=== PATIENT | male | born 1950 | race Hispanic/Latino ===

== ENCOUNTER 2018-06-11 14:19 | Observation (INO) | payer MEDICARE ==
[2018-06-11] MEDS ORDERED: Acetaminophen 325 MG TAB PO PRN (18:21)
[2018-06-11] MEDS ORDERED: Dextrose 50% Abboject 50 ML SYRINGE SLOW IVP PRN (18:25)
[2018-06-11] MEDS ORDERED: Dextrose 5% in Water 1,000 ML IV PRN (18:25)
[2018-06-11 20:28] VITALS: BMI 30.7
[2018-06-11] MEDS: Sodium Chloride 0.9% 1,000 ML IV SCH (20:29)
[2018-06-11] MEDS: HumaLOG 300 UNITS/3 ML VIAL SC PRN (20:58)
--- NOTE | 2018-06-11 22:06 | HP ---
CHIEF COMPLAINT: Altered mental status. HISTORY OF PRESENT ILLNESS: The patient is a 67-year-old male with a history of known hypothyroidism and diabetes, who presented to outpatient Emergency Department today complaining of feeling altered. The patient initially presented to [facility] with reports of confusion. He reports that over the st month, he has been feeling weak and tired and generally out of it with just sluggish feeling. He has been more pronounced over the last couple of weeks. He has actually been stumbling when even att empting to walk and just feels like he does not have as much control over his body in general. He rondon s felt no specific associations with any other factors. REVIEW OF SYSTEMS: Notable for some slight blurred vision, nonrestorative sleep and has had some fat igue, has some nocturia and even had some incontinence today because he felt too fatigued to actually move quickly enough to get to the bathroom. He does have some polydipsia. He states he drinks abou t a gallon of liquids per day. Other than that, a 10-system review is negative except for the histor y of present illness. PAST MEDICAL HISTORY: Diabetes, hypertension, hypothyroidism, has a history of what he called Graves disease and then said he had a subsequent radioactive iodine ablation resulting in permanent hypothy roidism. He also reports that his Synthroid dose has been up as high as 200 mg but was tapered back down and is now only on 25 mcg. PAST SURGICAL HISTORY: Pin in his left second digit from a degloving injury. FAMILY HISTORY: Father is alive with Alzheimer's and COPD. His mother and 2 sisters apparently have autoimmune cirrhosis. His mother has heart failure. She is . SOCIAL HISTORY: Patient has a history of smoking in college, not currently. Minimal alcohol intake about 1 beer per month. 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 Drugs: The patient reports he occasionally uses marijuana. None recent. He is not . He was initially , got remarried and his second of cancer in the 80s. Patient is a DNR and his surrogate decision maker is his nephew Roni. ALLERGIES: METFORMIN, which causes nausea and vomiting. MEDICATIONS: Levothyroxine 25 mcg every day, and an insulin FlexPen. PHYSICAL EXAMINATION: VITAL SIGNS: BP was 136/77, pulse 71, respirations 14, O2 sat 97%. GENERAL APPEARANCE: The patient was awake and interactive. He has some mild psychomotor delay. He appears to be appropriate. HEENT: Pupils are sluggish but reactive. He has mild erythema of the eyelids. He has no OP lesions . NECK: Supple and symmetric. CARDIOVASCULAR: Regular rate and rhythm without murmurs, gallops or rubs. LUNGS: Clear to auscultation bilaterally. ABDOMEN: Soft, nontender, nondistended, positive bowel sounds. EXTREMITIES: Warm and dry with no edema. PSYCHIATRIC: Other than the psychomotor delay, patient has normal affect and behavior. LABORATORY DATA: White count 7.3, hemoglobin 16.3 and platelets 105. VBG, pH was 7.36, pCO2 is 36. Sodium 138, potassium 3.8, chloride 104, CO2 is 17, anion gap 21, BUN 17, creatinine 1.59, glucose 3 39 with repeat 236, AST 53, ALT 57. CK is 1158, MB is 15.5, troponin less than 0.01. BNP less than 10. Albumin 40. TSH was 125.1. Urinalysis with significant glucose, some ketones, trace blood. Ur ine drug screen was negative. Blood alcohol less than 10. Chest x-ray normal. Head CT was also rep ortedly normal. IMPRESSION AND PLAN: 1. Altered mental status. Does not appear to be a significant underlying cause for this other than profound hypothyroidism. Patient did receive 400 mcg of Synthroid IV and 200 mg p.o. at the outside facility. He states subjectively he thinks he is already feeling a bit better. The patient is place d in observation. We will continue him on p.o. Synthroid. 2. Mild rhabdomyolysis. Unclear if this is related to the hypothyroidism. We will hydrate and rech ramy values in the morning. 3. Thrombocytopenia. This appears to be longstanding. He is not too far off of his baseline. 4. Diabetes mellitus. We will keep the patient on a diabetic diet and continue with sliding scale i nsulin. The patient is not sure he actually took a shot over the last couple of days and he was sign ificantly hyperglycemic on arrival. We will continue to monitor that situation as well. 5. History of hypertension, does not appear that the patient is on medications for the time being. We will continue to monitor his vital signs.
[2018-06-12] MEDS: Sodium Chloride 0.9% 1,000 ML IV SCH ×2 (05:04→17:30)
[2018-06-12 05:31] LABS: Anion Gap 15 mmol/L (10-20); BUN (Urea Nitrogen) 15 mg/dL (8.4-25.7); Calc. Creatinine Clearance 71 mL/min (70-130); Carbon Dioxide 16 mmol/L (23-31); Chloride 109 mmol/L (98-107); Estimated GFR-MDRD 57; Glucose 278 mg/dL (80-115); Potassium 3.5 mmol/L (3.5-5.1); Sodium 136 mmol/L (136-145)
[2018-06-12] MEDS ORDERED: Levothyroxine Sodium 100 MCG TAB PO SCH (06:00)
[2018-06-12 06:14] LABS: #Eosinphils 0.1 thou/uL (0.0-0.7); #Lymphocytes 1.9 thou/uL (1.20-3.40); #Monocytes 0.3 thou/uL (0.11-0.59); #Neutrophils 3.9 thou/uL (1.40-6.50); %Basophils 0.7 % (0.0-1.0); %Eosinophils 0.9 % (0.0-10.0); %Lymphocytes 30.2 % (21.0-51.0); %Monocytes 4.9 % (0.0-10.0); %Neutrophils 63.4 % (42.0-75.0); Hemoglobin 14.1 g/dL (14.0-18.0); Mean Corpuscular Hemoglobin 33.5 pg (27.0-31.0); Mean Platelet Volume 7.6 fL (7.4-10.4); PLT Morphology Comment Appears Decreased; Platelet Count 88 thou/uL (130-400); RBC Distribution Width 14.1 % (11.5-14.5); Red Blood Cell (RBC) Count 4.21 mill/uL (4.70-6.10); White Blood Cell (WBC) Count 6.2 thou/uL (4.8-10.8)
[2018-06-12] MEDS: HumaLOG 300 UNITS/3 ML VIAL SC PRN ×2 (06:20→12:39)
[2018-06-12 17:23] VITALS: BP 116/73; TEMP 98.4
--- NOTE | 2018-06-12 22:04 | DIS ---
DATE OF ADMISSION: 06/11/2018 DATE OF DISCHARGE: 06/12/2018 DISCHARGE DIAGNOSES: 1. Altered mental status. 2. Severe hypothyroidism. 3. Diabetes. 4. Mild rhabdomyolysis. 5. Mild chronic thrombocytopenia SUBJECTIVE: The patient is a 67-year-old male who presented to an outside facility with some confusion. There was initial concern the patient may have some form of intoxication, but screens were normal. He was subsequently found to have a TSH of 127. He was given 400 mcg of IV Synthroid and 200 mcg p.o. He was subsequently transferred to our facility and placed in observation. Patient indicated that he has had prior thyroid ablation. He also stated that his thyroid medication had been increased as high as 200 mcg and reduced back down to 25 mcg. He indicated that he took his medication regularly, but did not follow any protocol and simply took that and went about his day, often eating at the same time. HOSPITAL COURSE: The patient appeared to be somewhat delayed in his speech, but otherwise had no physical significant stigmata of hypothyroidism. His CK was noted at about 1100. He was placed in the hospital and hydrated overnight. The patient was already improving from the time he initially presented. By the following morning, the patient fell back to his baseline. He was able to eat and get up and ambulate without any difficulty. His repeat CK was around 900. He was felt to be stable for discharge to home with continued oral hydration. PHYSICAL EXAMINATION: VITAL SIGNS: On the day of discharge, temperature was 98.4, pulse 73, respirations 18, O2 sat 97%, blood pressure 116/73. GENERAL: Awake, alert, appropriate, in no distress, walking in [place] as well. HEART: Regular rate and rhythm. LUNGS: Clear. ABDOMEN: Benign. EXTREMITIES: Warm and dry with no edema. DISPOSITION: The patient will be discharged to home. DISCHARGE MEDICATIONS: We will continue with his usual insulin dosing. He should be on Synthroid 200 mcg p.o. daily. Of note, the patient was instructed to take the Synthroid at the same time each morning, on an empty stomach and to wait at least 30 minutes prior to eating or drinking anything or taking any other meds by mouth. He will continue with his diabetic diet. He is encouraged to drink ample fluids. His activity level is as tolerated. He is encouraged to follow up with his PCP soon and was instructed that he will need to have his TSH checked again in about 6 weeks. TOMASD
== END 2018-06-12 18:36 | disposition home or self-care (01) ==
LOC: ERS 14:19 → T4-A 17:07
PROVIDERS: ADMIT Internal Medicine; ATTEND Internal Medicine
DX: R41.82 Altered mental status, unspecified (principal); E89.0 Postprocedural hypothyroidism; E11.9 Type 2 diabetes mellitus without complications; M62.82 Rhabdomyolysis; D69.6 Thrombocytopenia, unspecified; I10 Essential (primary) hypertension; Z87.891 Personal history of nicotine dependence; Z88.8 Allergy status to other drugs, medicaments and biological substances
CPT/HCPCS: 80048; 82550; 82962 ×2; 85025; 96360; 96361; 99285; G0378 ×2; 36415; 36416

== ENCOUNTER 2020-11-26 10:27 | Inpatient (IN) | payer MEDICARE ==
[2020-11-26] MEDS ORDERED: Hydrocortisone Sod Succ/PF 100 mg/2 ml Vial ONE (10:55)
[2020-11-26] MEDS ORDERED: Propofol 1,000 MG/100 ML VIAL IV ONE (10:59)
[2020-11-26 11:10] LABS: Actual Bicarbonate (HCO3a) 17.9 mEq/L (22-28); Analyzer IN Cardio ER; Base Excess (BEa) -5.2 mEq/L (-2.0 to +3.0); CO2 Tension 27.8 mmHg (35.0-45.0); Calcium, Ionized (arterial) 1.07 mmol/L (1.12-1.30); Carboxyhemoglobin (COHb) 0.3 gm% (0.0-3.0); Hemoglobin (Hb) 12.4 g/dL (14.0-18.0); O2 Tension (PaO2), arterial 127.2 mmHg (> 70.0); Potassium - ABG Lab 3.42 mmol/L (3.70-5.30); pH, Arterial 7.43 (7.35-7.45)
[2020-11-26 11:12] LABS: Puncture Site RRA
[2020-11-26] MEDS ORDERED: fentaNYL Citrate/PF 2,000 MCG in Sodium Chloride 0.9% 60 ML IV SCH (11:15)
[2020-11-26] MEDS ORDERED: Levothyroxine 100 MCG SDV SLOW IVP SCH (11:15)
[2020-11-26 11:58] LABS: Amphetamine Not Detected (NotDetected); Barbiturates Screen Not Detected (NotDetected); Benzodiazepine Screen Not Detected (NotDetected); Cocaine Metabolite Screen Not Detected (NotDetected); Medtox Control Line Valid? VALID (VALID); Medtox Reader # READER 1; Methadone Not Detected (NotDetected); Methamphetamine Not Detected (NotDetected); Opiate Screen Not Detected (NotDetected); Oxycodone Screen Not Detected (NotDetected); Phencyclidine (PCP) Not Detected (NotDetected); THC/Cannabinoid Screen Not Detected (NotDetected); Tricyclic Screen Not Detected (NotDetected)
[2020-11-26 12:26] LABS: SARS-CoV-2 NAA Rapid Test Not Detected (NotDetected)
[2020-11-26] MEDS ORDERED: Sodium Chloride 0.9% 1,000 ML IV SCH (13:45)
[2020-11-26 13:46] VITALS: BMI 31.7
[2020-11-26] MEDS ORDERED: Electrolyte Replacement Protocol 1 EACH FS SCH (14:53)
[2020-11-26] MEDS ORDERED: Propofol BOLUS 1,000 MG/100 ML VIAL IV PRN (15:00)
[2020-11-26] MEDS ORDERED: Ventilator Sedation Protocol 1 EACH FS SCH (15:00)
[2020-11-26] MEDS ORDERED: Morphine 2 MG/ML VIAL SLOW IVP PRN (15:00)
[2020-11-26] MEDS ORDERED: Lorazepam 2 MG/ML VIAL SLOW IVP PRN (15:00)
[2020-11-26] MEDS ORDERED: Fentanyl BOLUS 250 ML IVPB PRN (15:00)
[2020-11-26] MEDS ORDERED: Fentanyl CADD 100 ML IV SCH (15:00)
--- NOTE | 2020-11-26 15:54 | PDOC.HHP ---
Hospitalist HPI encephalopathy History of Present Illness: This is a 70 year old male with past medical history of hypothyroidism, diabetes who presented to the hospital when he was found unresponsive on the floor outside. He had a GCS of 3. He was intubated in the field. It is unclear if he was compliant with his medications. I am unable to get a hold of the family. He was recently admitted in 2018 for severe altered mental status secondary to hypothyroidism and was discharged with synthyroid 200 mcg daily ED Course: The patient presented to the ER with a temp of 95.2 and was intubated in the field. CBC was unremarkable except for hemoglobin of 13.2. Labs showed a glucose of 360, lactic acid of 3.1, AST 58, ALT 69, ALP 116, ammonia of 202, CK Of 711 . UA was normal. CT head showed no acute findings. Chest X ray was clear. CT cervical spine showed degenerative changes . She got 300 mg IV levothyroxine, 100 mg IV hydrocortisone and received a eddie hugger and will be admitted for further workup. Allergies/Adverse Reactions: Allergy/AdvReac Type Severity Reaction Status Date / Time metformin Allergy Nausea Verified 11/26/20 11:55 Home Medications: Medication Instructions Recorded Confirmed Type Levothyroxine Sodium [Synthroid] 200 mcg PO DAILY #30 tablet 06/12/18 11/26/20 Rx Past History: PMHx: hypothyroidism diabetes PSHx: unable to obtain FHx: unable to obtain Social: unable to obtain Hospitalist HPI ROS ROS unobtainable: due to endotracheal tube Hospitalist Exam Vitals: Vital Signs (12 hours) Temp Pulse Resp BP Pulse Ox 11/26/20 15:24 68 11/26/20 14:00 16 11/26/20 13:50 19 100 11/26/20 13:23 97.6 F 67 15 126/74 100 Weight Weight 196 lb 10.437 oz Most Recent Monitor Data Heart Rate from ECG 63 NIBP 110/68 NIBP BP-Mean 82 Respiration from ECG 16 SpO2 100 General - other findings: intubated, sedated Eye: PERRL, anicteric sclera ENT: normocephalic atraumatic, no oropharyngeal lesions Neck: no JVD Heart: RRR, no murmur, no gallops, no rubs Respiratory: CTAB, no wheezes, no rales, no ronchi Gastrointestinal: soft, non-tender, non-distended, normal bowel sounds Extremities: no cyanosis, no clubbing, no edema Skin: normal turgor, no lesions, no rashes Neurological: cranial nerve grossly intact, normal sensation to touch, no weakne ss Musculoskeletal: normal tone, normal strength, no muscle wasting Psychiatric - other findings: intubated Hospitalist Results Lab results: Laboratory Last Values Specimen Type ARTERIAL 11/26/20 11:10 Puncture Site RRA 11/26/20 11:10 Bicarbonate Actual 17.9 mEq/L (22-28) L 11/26/20 11:10 ABG pH 7.43 (7.35-7.45) 11/26/20 11:10 ABG pCO2 27.8 mmHg (35.0-45.0) L 11/26/20 11:10 ABG pO2 127.2 mmHg (> 70.0) H 11/26/20 11:10 ABG O2 Sat (Measured) 97.6 % (94.0-98.0) 11/26/20 11:10 ABG O2 Content 17.1 vol% (18.0-21.0) L 11/26/20 11:10 ABG Base Excess -5.2 mEq/L (-2.0 to +3.0) L 11/26/20 11:10 ABG Hematocrit 36.0 % (42.0-52.0) L 11/26/20 11:10 ABG Hemoglobin 12.4 g/dL (14.0-18.0) L 11/26/20 11:10 ABG Oxyhemoglobin 96.8 % (94.0-98.0) 11/26/20 11:10 ABG Carboxyhemoglobin 0.3 gm% (0.0-3.0) 11/26/20 11:10 ABG Methemoglobin 0.50 gm% (0.04-1.52) 11/26/20 11:10 ABG Deoxyhemoglobin 2.4 % (0.0-2.9) 11/26/20 11:10 James Test POSITIVE 11/26/20 11:10 A-a O2 Gradient 123.250 mmHg (0-20) H 11/26/20 11:10 Sodium 137 mmol/L (135-148) 11/26/20 11:10 Potassium 3.42 mmol/L (3.70-5.30) L 11/26/20 11:10 Chloride 112 mmol/L (98-106) H 11/26/20 11:10 Ionized Calcium 1.07 mmol/L (1.12-1.30) L 11/26/20 11:10 Mode of Support SIMV 11/26/20 11:10 Mechanical Rate 12 min 11/26/20 11:10 Inspired O2 40 % 11/26/20 11:10 Tidal Volume 450 ml 11/26/20 11:10 Pressure Support 10 cmH2O 11/26/20 11:10 PEEP or CPAP 5.0 cmH2O 11/26/20 11:10 Free T4 Less than 0.40 ng/dL (0.70-1.48) L 11/26/20 11:31 Cortisol 157.40 ug/dL (See Ranges) 11/26/20 11:31 Urine Opiates Screen Not Detected (NotDetected) 11/26/20 11:20 Ur Oxycodone Screen Not Detected (NotDetected) 11/26/20 11:20 Urine Methadone Screen Not Detected (NotDetected) 11/26/20 11:20 Ur Propoxyphene Screen Not Detected (NotDetected) 11/26/20 11:20 Ur Barbiturates Screen Not Detected (NotDetected) 11/26/20 11:20 Ur Tricyclics Screen Not Detected (NotDetected) 11/26/20 11:20 Ur Phencyclidine Scrn Not Detected (NotDetected) 11/26/20 11:20 Ur Amphetamines Screen Not Detected (NotDetected) 11/26/20 11:20 U Methamphetamines Scrn Not Detected (NotDetected) 11/26/20 11:20 U Benzodiazepines Scrn Not Detected (NotDetected) 11/26/20 11:20 U Cocaine Metab Screen Not Detected (NotDetected) 11/26/20 11:20 U Cannabinoids Screen Not Detected (NotDetected) 11/26/20 11:20 Drug Screen Comment () 11/26/20 11:20 Influenza A RNA INAAT Not Detected (NotDetected) 11/26/20 11:20 Influenza B RNA INAAT Not Detected (NotDetected) 11/26/20 11:20 SARS-CoV-2 Rap RNA(RT-PCR) Not Detected (NotDetected) 11/26/20 11:20 Hospitalist H&P A/P Plan: CT cervical spine: degenerative changes Chest Xray: normal CT head: no acute disesae This is a 70 year old male with history of hypothyroidism who was found unresponsive with a GCS of 3 and was intubated in the field. He was found to have a TSH of 116. #Acute encephalopathy secondary to myexedema coma vs hyperammonemia #Severe hypothyroidism - patient is intubated for airway protection due to GCS of 3. TSH was 116 and free T4 was low. The patient received 300 mg IV levothyroxine and 100 mg IV hydrocortisone. Cortisol level normal so will hold off on further steroids -continue 100 mg IV levothyroxine daily until patient is able to take po #Transaminitis #Hyperammonemia - LFTS elevated with ammonia level of 200 and bilirubin was 2.0. Will repeat LFTS after fluid administration to see if it has improved. Will check abdominal ultrasound to evaluate for cirrhosis - continue lactulose tid. Rifaxmin has been added Lactic acidosis - continue IV fluids. Will repeat lactic acid levels. Chest X ray was normal. UA negative. #Type II diabetes -will check fingersticks q6 hours [address] on sliding scale - unclear what patient takes at home DVT prophylaxis: lovenox SC Code status: presume full code for now
[2020-11-26] MEDS ORDERED: Dextrose 5% in Water 1,000 ML IV PRN (16:08)
[2020-11-26] MEDS ORDERED: Dextrose 50% Abboject 50 ML SYRINGE SLOW IVP PRN (16:08)
[2020-11-26 16:51] LABS: Lactic Acid 1.8 mmol/L (0.5-2.2)
[2020-11-26 16:58] LABS: ALT (SGPT) 65 U/L (8-55); AST (SGOT) 62 U/L (5-34); Alkaline Phosphatase 119 U/L (40-110); Bilirubin, Direct 0.7 mg/dL (0.1-0.3); Bilirubin, Total 2.1 mg/dL (0.2-1.2); Protein, Total 6.5 g/dL (5.8-8.1)
[2020-11-26] MEDS: HumaLOG 300 UNITS/3 ML VIAL SC PRN (17:19)
[2020-11-26] MEDS: Famotidine/PF 20 mg/2ml Vial SLOW IVP SCH (20:32)
[2020-11-26] MEDS: Rifaximin 550 MG TAB PER TUBE SCH (20:32)
--- NOTE | 2020-11-26 20:33 | CON ---
DATE OF CONSULTATION: 11/26/2020 REASON FOR CONSULTATION: The patient is intubated. HISTORY OF THE PRESENT ILLNESS: A 70-year-old male with a history of cirrhosis/hepatic encephalopathy. He was found down at home. He was intubated for non-responsiveness. I believe he had elevated ammonia level above 200. This apparently has happened to him in the past. PAST MEDICAL HISTORY: According to history and physical from 2018, the patient has diabetes, hypertension, hypothyroidism, and liver disease. PAST SURGICAL HISTORY: He has had some type of hand surgery in the past. FAMILY MEDICAL HISTORY: Remarkable for Alzheimer's, COPD, autoimmune cirrhosis. SOCIAL HISTORY: Smoked while in college. Occasionally drinks alcohol. Apparently occasionally used marijuana in the past. In the past, 2 years ago, while in hospital, he was DNR. ALLERGIES: METFORMIN. MEDICATIONS: Prior to admission levothyroxine. REVIEW OF SYSTEMS: Cannot be obtained because the patient is currently intubated. PHYSICAL EXAMINATION: VITAL SIGNS: Heart rate 65, blood pressure 100/46, respiratory rate 12, O2 saturation 100%. The patient is currently obtunded on mechanical ventilation. HEENT: Shows some mild periorbital edema. His oropharynx is intubated. NECK: Without adenopathy or JVD. LUNGS: Clear to auscultation. CARDIOVASCULAR: S1, S2. Regular without audible murmur. ABDOMEN: Soft and nontender. EXTREMITIES: Without clubbing, cyanosis, or edema. DIAGNOSTIC DATA: His chest x-ray after intubation at [facility] shows clear lung gardiner without mass, effusion, or infiltrate. A CT of the C-spine shows some arthritis, but no acute findings. A brain CT showed no intracranial findings. LABORATORY DATA: White blood cell count 6.5, hematocrit 38.4, and platelet count 89. INR is 1.4. PH of 7.43, pCO2 of 27, PO2 of 127. Sodium 142, potassium 3.6, chloride 111, CO2 of 17, BUN 17, creatinine 1.1, glucose 183. Ammonia level was 202. Troponin less than 0.01. BNP less than 10. Albumin 3.1. TSH 116, but his free T4 was less than 0.4. COVID test was nonreactive. His drug screen was negative. ASSESSMENT: 1. Hepatic encephalopathy. 2. Acute respiratory failure requiring mechanical ventilation. 3. History of autoimmune hepatitis/cirrhosis. PLAN: The patient will be given Xifaxan and lactulose. His ammonia level will be repeated tomorrow. Hopefully, he can be extubated as he wakes up. He will be given DVT prophylaxis with SCDs and GI prophylaxis with Pepcid. Job ID: [id number]
--- NOTE | 2020-11-26 22:42 | ULT ---
US Gallbladder RUQ: 11/26/2020 9:27 PM CLINICAL HISTORY: Transaminitis. STUDY: Limited right upper quadrant ultrasound of abdomen. COMPARISON: None. FINDINGS: Liver: Size: Normal. Echogenicity: Hyperechoic consistent with hepatic steatosis. Contour: Smooth. Mass: None. Bile ducts: No intrahepatic or extrahepatic biliary dilatation. Common bile duct measures 6 mm. Gallbladder: Contains sludge without shadowing gallstones or gallbladder wall thickening Pancreas: Not visualized Right kidney: No pelvicalyceal dilatation. Right kidney measuring 10.6 cm in length. IMPRESSION: 1. Fatty liver 2. Gallbladder sludge
[2020-11-27 04:05] LABS: INR-International Normal Ratio 1.2; PTT 26.6 sec (22.9-36.1); Prothrombin Time 15.1 sec (12.0-14.7)
[2020-11-27 04:18] LABS: Anion Gap 13 mmol/L (10-20); BUN (Urea Nitrogen) 19 mg/dL (8.4-25.7); Calc. Creatinine Clearance 75 mL/min (70-130); Calcium 7.9 mg/dL (7.8-10.44); Carbon Dioxide 17 mmol/L (23-31); Chloride 112 mmol/L (98-107); Glucose 173 mg/dL (80-115); Potassium 3.6 mmol/L (3.5-5.1); Sodium 138 mmol/L (136-145)
[2020-11-27 05:03] LABS: #Lymphocytes 1.4 thou/uL (1.20-3.40); #Monocytes 0.7 thou/uL (0.11-0.59); #Neutrophils 10.3 thou/uL (1.40-6.50); %Basophils 0.3 % (0.0-1.0); %Eosinophils 0.1 % (0.0-10.0); %Lymphocytes 10.9 % (21.0-51.0); %Monocytes 5.9 % (0.0-10.0); %Neutrophils 82.8 % (42.0-75.0); Mean Corpuscular HGB CONC 34.8 g/dL (32.0-36.0); Mean Corpuscular Hemoglobin 33.8 pg (27.0-31.0); Mean Corpuscular Volume 97.2 fL (78.0-98.0); Platelet Count 111 thou/uL (130-400); Platelet Morphology Comment Appears Decreased; RBC Distribution Width 13.5 % (11.5-14.5); Red Blood Cell (RBC) Count 3.84 mill/uL (4.70-6.10); White Blood Cell (WBC) Count 12.4 thou/uL (4.8-10.8)
[2020-11-27] MEDS: Levothyroxine 100 MCG SDV IVP SCH (06:08)
[2020-11-27] MEDS: Famotidine/PF 20 mg/2ml Vial SLOW IVP SCH ×2 (08:28→20:49)
[2020-11-27] MEDS: Rifaximin 550 MG TAB PER TUBE SCH ×2 (08:28→20:49)
[2020-11-27] MEDS ORDERED: FLU VACC QS2020-21(65YR UP)/PF 240 MCG/0.7 ML SYRINGE IM ONE (09:00)
--- NOTE | 2020-11-27 09:33 | PDOC.HOSPP ---
- Subjective Encounter Date: 11/27/20 Encounter Time: 09:33 Subjective: Spoke with the daughter, she states brother had noticed he had been sleeping more throughout the days and yesterday he was not responsive enough and that's why they called EMS. Three weeks ago he was driving to pay his electric bills and pulled over and passed out. Police found him and they could not get him to wake up. They transported him to [facility] and then [facility] and he was admitted there, but she doesn't know why. Daughter confirms that he is noncompliant with his medications because he thinks the medicines are too expensive, even though he can apparently afford it. Daughter doesn't know if he is lazy, or doesn't understand the importance of it. She states she does have a history of diabetes for the past few years and doesn't know if he is on medicine for it. He did have a DNR on file. Daughter is estranged from his father. When she asked sister Kelly Russell about whether there is a DNR on file, she said there is not. When asked about history of depression, daughter says possibly but not sure. Patient is a registered sex offender which is why daughters have a strained relationship. He apparently was talking to under-age girls (13 years old) in a chatroom and was arrested before he made plans to meet with them. Daughter states patient drinks 3-4 times a week, probably 3-4 each drinks each time - Objective Vital Signs & Weight: Vital Signs (12 hours) Temp Pulse Resp BP Pulse Ox 11/27/20 08:00 17 11/27/20 07:24 53 L 100/61 11/27/20 07:21 100 11/27/20 07:00 98.4 F 11/27/20 06:00 16 11/27/20 04:00 98.0 F 12 11/27/20 02:00 15 11/27/20 01:52 59 L 119/69 11/27/20 00:00 98.0 F 17 11/26/20 23:47 97.0 F L 11/26/20 22:12 61 100/67 11/26/20 22:00 16 Weight Weight 196 lb 10.437 oz Most Recent Monitor Data Heart Rate from ECG 54 NIBP 95/55 NIBP BP-Mean 68 Respiration from ECG 12 SpO2 100 I&O: 11/26/20 11/27/20 11/28/20 06:59 06:59 06:59 Intake Total 1783.8 0 Output Total 1395 80 Balance 388.8 -80 Result Diagrams: 11/27/20 03:37 11/27/20 03:37 Additional Labs: Accuchecks 11/27/20 11/26/20 11/26/20 04:43 22:05 17:17 POC Glucose 172 H 189 H 213 H Hospitalist ROS - Review of Systems ROS unobtainable: due to endotracheal tube - Medication Medications: Active Medications Generic Name Dose Route Start Last Admin Trade Name Freq PRN Reason Stop Dose Admin Famotidine 20 mg 11/26/20 21:00 11/27/20 08:28 Famotidine/Pf 20 Mg/2ml Vial SLOW IVP 20 mg BID MARLENY Administration Insulin Human Lispro 0 units 11/26/20 16:08 11/26/20 17:19 Humalog 300 Units/3 Ml Vial SC 3 unit .MILD SLIDING SCALE PRN Administration Mild Correctional Scale Lactulose 30 gm 11/26/20 15:00 11/27/20 08:28 Lactulose 20 Gm/30 Ml Udcup PER TUBE 30 gm TID MARLENY Administration Levothyroxine Sodium 100 mcg 11/27/20 06:00 11/27/20 06:08 Levothyroxine 100 Mcg Sdv IVP 100 mcg 0600 MARLENY Administration Rifaximin 550 mg 11/26/20 21:00 11/27/20 08:28 Rifaximin 550 Mg Tab PER TUBE 550 mg BID MARLENY Administration Hospitalist Exam Vitals: Vital Signs (12 hours) Temp Pulse Resp BP Pulse Ox 11/27/20 08:00 17 11/27/20 07:24 53 L 100/61 11/27/20 07:21 100 11/27/20 07:00 98.4 F 11/27/20 06:00 16 11/27/20 04:00 98.0 F 12 11/27/20 02:00 15 11/27/20 01:52 59 L 119/69 11/27/20 00:00 98.0 F 17 11/26/20 23:47 97.0 F L 11/26/20 22:12 61 100/67 11/26/20 22:00 16 Weight Weight 196 lb 10.437 oz Most Recent Monitor Data Heart Rate from ECG 54 NIBP 95/55 NIBP BP-Mean 68 Respiration from ECG 12 SpO2 100 General - other findings: intubated, sedated Eye: PERRL, anicteric sclera ENT: normocephalic atraumatic, no oropharyngeal lesions Neck: no JVD Heart: RRR, no murmur, no gallops, no rubs Respiratory: CTAB, no wheezes, no rales, no ronchi Gastrointestinal: soft, non-tender, non-distended, normal bowel sounds Extremities: no cyanosis, no clubbing, no edema Skin: normal turgor, no lesions, no rashes Neurological: cranial nerve grossly intact, normal sensation to touch, no we akness Musculoskeletal: normal tone, normal strength, no muscle wasting Psychiatric: normal affect, normal behavior, oriented to person Hosp A/P - Plan CT cervical spine: degenerative changes Chest Xray: normal CT head: no acute disease Abd US: fatty liver, gallbladder sludge This is a 70 year old male with history of hypothyroidism who was found unresponsive with a GCS of 3 and was intubated in the field. He was found to have a TSH of 116. #Acute encephalopathy secondary to myexedema coma vs hyperammonemia #Severe hypothyroidism - TSH has improved. Continue IV levothyroxine . Will transition to oral levothyroxine once patient extubated and TSH has improved more - patient is still intubated #Transaminitis - secondary to fatty liver vs alcohol #Hyperammonemia - ammonia has improved to 60. Continue rifaximin and lactulose. -Abd US showed fatty liver and galblladder sludge. Patient does drink 3-4 times a week Lactic acidosis - resolved. Chest Xray normal, UA negative #Type II diabetes - will repeat A1C. Not on any home medications. Daughter to clarify what he is supposed to be on Dispo: will consult palliative care regarding patient's DNR, doesn't seem like he really had one on file. Will consider [facility] consult when patient is more awake since he may be depressed as well
--- NOTE | 2020-11-27 10:26 | RAD ---
EXAM: Chest one view: HISTORY: Follow-up pneumonia COMPARISON: 11/26/2020 FINDINGS: Life-support tubes in place and stable. Heart size: Within normal limits. Lungs: Patchy interstitial and alveolar parenchymal changes bilaterally, probably slightly worse in t he perihilar and infrahilar regions. No pneumothorax or significant pleural effusion. IMPRESSION: Minimally progressive patchy bilateral interstitial and alveolar parenchymal changes particularly in the infrahilar regions. Continued short-term follow-up.
[2020-11-27 10:34] LABS: ALT (SGPT) 62 U/L (8-55); AST (SGOT) 51 U/L (5-34); Albumin 3.1 g/dL (3.4-4.8); Alkaline Phosphatase 113 U/L (40-110); Bilirubin, Direct 0.8 mg/dL (0.1-0.3); Bilirubin, Total 2.5 mg/dL (0.2-1.2); Protein, Total 6.6 g/dL (5.8-8.1)
[2020-11-27 10:37] LABS: CKMB 6.1 ng/mL (0-6.6); Troponin I Less than 0.010 ng/mL (< 0.028)
[2020-11-27] MEDS: Propofol 1,000 MG/100 ML VIAL IV PRN (12:44)
[2020-11-27 13:19] LABS: Hemoglobin A1c 9.2 % (4.0-6.0)
--- NOTE | 2020-11-27 14:15 | PRG ---
DATE OF SERVICE: 11/27/2020 SUBJECTIVE: Mr. Kurtz has regained consciousness. He will follow some commands weakly. He is definitely not at baseline. OBJECTIVE: VITAL SIGNS: Temperature 98.5, pulse 53, blood pressure 110/62, O2 saturation 100%. He is currently on mechanical ventilation with settings SIMV rate of 10, tidal volume 450, PEEP of 5, pressure 10, FiO2 of 40%. HEENT: Shows some periorbital edema. His oropharynx is intubated. NECK: No adenopathy or JVD. LUNGS: Clear bilaterally. CARDIOVASCULAR: S1, S2. Slightly bradycardic. ABDOMEN: Soft and nontender. EXTREMITIES: Trace edema in the hands. LABORATORY DATA: His total bilirubin is 2.5. Ammonia level 113. TSH 75. White blood cell count 12.4, hematocrit 37.4, and platelet count 111. Chest x-ray shows some perihilar edema without evidence of mass, effusion, or infiltrate. ASSESSMENT: 1. Hepatic encephalopathy. 2. Acute respiratory failure requiring mechanical ventilation. 3. History of autoimmune hepatitis/cirrhosis. PLAN: 1. Hopefully we can extubate him tomorrow if he is more awake. I think one more day of the Xifaxan and lactulose will do him some good. 2. Labs will be repeated in full tomorrow. I am not sure why that was not done today. 3. We will follow. Job ID: [id number]
[2020-11-27] MEDS: Hydrocortisone Sod Succ/PF 100 mg/2 ml Vial IVP SCH (17:32)
[2020-11-27] MEDS: HumaLOG 300 UNITS/3 ML VIAL SC PRN (22:25)
[2020-11-28] MEDS: Hydrocortisone Sod Succ/PF 100 mg/2 ml Vial IVP SCH ×5 (00:43→23:59)
[2020-11-28] MEDS ORDERED: Fentanyl CADD 100 ML ONE (01:41)
[2020-11-28 04:04] LABS: #Eosinphils 0.1 thou/uL (0.0-0.7); #Lymphocytes 1.3 thou/uL (1.20-3.40); #Monocytes 0.5 thou/uL (0.11-0.59); #Neutrophils 11.5 thou/uL (1.40-6.50); %Basophils 0.3 % (0.0-1.0); %Eosinophils 0.4 % (0.0-10.0); %Lymphocytes 9.9 % (21.0-51.0); %Neutrophils 85.4 % (42.0-75.0); Hemoglobin 13.7 g/dL (14.0-18.0); Mean Corpuscular HGB CONC 36.6 g/dL (32.0-36.0); Mean Corpuscular Hemoglobin 36.6 pg (27.0-31.0); Platelet Count 110 thou/uL (130-400); RBC Distribution Width 13.7 % (11.5-14.5); Red Blood Cell (RBC) Count 3.73 mill/uL (4.70-6.10); White Blood Cell (WBC) Count 13.5 thou/uL (4.8-10.8)
[2020-11-28 04:33] LABS: Anion Gap 13 mmol/L (10-20); BUN (Urea Nitrogen) 21 mg/dL (8.4-25.7); Calc. Creatinine Clearance 86 mL/min (70-130); Calcium 7.8 mg/dL (7.8-10.44); Carbon Dioxide 18 mmol/L (23-31); Chloride 112 mmol/L (98-107); Glucose 197 mg/dL (80-115); Potassium 4.2 mmol/L (3.5-5.1); Sodium 139 mmol/L (136-145)
[2020-11-28] MEDS: HumaLOG 300 UNITS/3 ML VIAL SC PRN ×4 (04:52→22:33)
[2020-11-28] MEDS: Levothyroxine 100 MCG SDV IVP SCH (06:42)
[2020-11-28 07:35] LABS: Analyzer IN Cardio ER; Base Excess (BEa) -5.7 mEq/L (-2.0 to +3.0); CO2 Tension 26.4 mmHg (35.0-45.0); Calcium, Ionized (arterial) 1.09 mmol/L (1.12-1.30); Carboxyhemoglobin (COHb) 0.3 gm% (0.0-3.0); Hemoglobin (Hb) 13.5 g/dL (14.0-18.0); O2 Tension (PaO2), arterial 119.6 mmHg (> 70.0); Potassium - ABG Lab 3.52 mmol/L (3.70-5.30); pH, Arterial 7.43 (7.35-7.45)
[2020-11-28 07:40] LABS: Puncture Site RRA
--- NOTE | 2020-11-28 07:56 | PDOC.HOSPP ---
- Subjective Encounter Date: 11/28/20 Encounter Time: 07:54 Subjective: No acute issues overnight The patient is still intubated, but he is following commands today. He states he was taking his medicine at home. He is on minimal vent settings The patient hasn't had any bowel movements even though he is on lactulose - Objective Vital Signs & Weight: Vital Signs (12 hours) Temp Pulse Resp BP Pulse Ox 11/28/20 07:19 65 110/63 11/28/20 06:00 18 11/28/20 04:00 98.0 F 14 11/28/20 02:28 60 107/62 11/28/20 02:00 13 11/28/20 00:00 98.7 F 16 11/27/20 22:45 57 L 92/56 L 11/27/20 22:00 13 11/27/20 20:00 98.4 F 14 100 Weight Weight 196 lb 10.437 oz Most Recent Monitor Data Heart Rate from ECG 70 NIBP 122/67 NIBP BP-Mean 85 Respiration from ECG 16 SpO2 100 I&O: 11/27/20 11/28/20 11/29/20 06:59 06:59 06:59 Intake Total 1783.8 1533.7 Output Total 1395 865 Balance 388.8 668.7 Result Diagrams: 11/28/20 03:33 11/28/20 03:33 Additional Labs: Accuchecks 11/28/20 11/27/20 11/27/20 04:45 22:16 15:30 POC Glucose 203 H 192 H 142 H 11/27/20 09:36 POC Glucose 131 H Hospitalist ROS - Review of Systems ROS unobtainable: due to endotracheal tube - Medication Medications: Active Medications Generic Name Dose Route Start Last Admin Trade Name Freq PRN Reason Stop Dose Admin Famotidine 20 mg 11/26/20 21:00 11/27/20 20:49 Famotidine/Pf 20 Mg/2ml Vial SLOW IVP 20 mg BID MARLENY Administration Hydrocortisone Sodium Succinate 50 mg 11/27/20 18:00 11/28/20 06:14 Hydrocortisone Sod Succ/Pf 100 Mg/2 Ml Vial IVP 12/03/20 18:01 50 mg Q6HR MARLENY Administration Fentanyl 100 mls @ 0 mls/hr 11/26/20 15:00 11/28/20 02:15 Fentanyl Cadd IV 12/26/20 15:00 100 mls INF MARLENY Administration Protocol Per Protocol Insulin Human Lispro 0 units 11/26/20 16:08 11/28/20 04:52 Humalog 300 Units/3 Ml Vial SC 3 unit .MILD SLIDING SCALE PRN Administration Mild Correctional Scale Lactulose 30 gm 11/26/20 15:00 11/27/20 20:49 Lactulose 20 Gm/30 Ml Udcup PER TUBE 30 gm TID MARLENY Administration Levothyroxine Sodium 100 mcg 11/27/20 06:00 11/28/20 06:42 Levothyroxine 100 Mcg Sdv IVP 100 mcg 0600 MARLENY Administration Propofol 1,000 mg 11/26/20 15:00 11/27/20 12:44 Propofol 1,000 Mg/100 Ml Vial IV 12/26/20 15:00 1,000 mg INF PRN Administration TO ACHIEVE GOAL RASS Protocol Rifaximin 550 mg 11/26/20 21:00 11/27/20 20:49 Rifaximin 550 Mg Tab PER TUBE 550 mg BID MARLENY Administration Hospitalist Exam Vitals: Vital Signs (12 hours) Temp Pulse Resp BP Pulse Ox 11/28/20 07:19 65 110/63 11/28/20 06:00 18 11/28/20 04:00 98.0 F 14 11/28/20 02:28 60 107/62 11/28/20 02:00 13 11/28/20 00:00 98.7 F 16 11/27/20 22:45 57 L 92/56 L 11/27/20 22:00 13 11/27/20 20:00 98.4 F 14 100 Weight Weight 196 lb 10.437 oz Most Recent Monitor Data Heart Rate from ECG 70 NIBP 122/67 NIBP BP-Mean 85 Respiration from ECG 16 SpO2 100 General Appearance: NAD, awake alert Eye: PERRL, anicteric sclera ENT: normocephalic atraumatic, no oropharyngeal lesions Neck: no JVD Heart: RRR, no murmur, no gallops, no rubs Respiratory: CTAB, no wheezes, no rales, no ronchi Gastrointestinal: soft, non-tender, non-distended Extremities: no cyanosis, no clubbing, no edema Skin: normal turgor, no lesions, no rashes Neurological: cranial nerve grossly intact, normal sensation to touch, no weakness Neurological - other findings: patient is following commands and moving all extremities Musculoskeletal: normal tone, normal strength, no muscle wasting Psychiatric: normal affect, normal behavior, A&O x 3 Hosp A/P - Plan CT cervical spine: degenerative changes Chest Xray: normal CT head: no acute disease Abd US: fatty liver, gallbladder sludge Chest Xray 11/28: This is a 70 year old male with history of hypothyroidism who was found unresponsive with a GCS of 3 and was intubated in the field. He was found to have a TSH of 116. #Acute encephalopathy secondary to myexedema coma vs hyperammonemia #Severe hypothyroidism - TSH has improved from 127 to 75. Will repeat TSH today. Continue IV levothyroxine . T3 not available here. Will transition to oral levothyroxine once patient extubated . He is on hydrocortisone as well - hopefully patient can be extubated today #Transaminitis - secondary to fatty liver vs alcohol #Hyperammonemia - ammonia has improved to 60. Continue rifaximin and lactulose. -Abd US showed fatty liver and galblladder sludge. Patient does drink 3-4 times a week Lactic acidosis - resolved. Chest Xray normal, UA negative #Type II diabetes - Hb A1C 9.2. Blood sugars 130-200. Continue sliding scale prn #Decreased urine output - will hydrate with IV fluids at KVO until patient is extubated and can eat . He is on hydrocortisone hopefully can taper Dispo: palliative care consult to address DNR and goals of care
--- NOTE | 2020-11-28 08:15 | RAD ---
Portable frontal chest radiograph: 11/28/2020 COMPARISON: 11/27/2020 HISTORY: Pneumonia FINDINGS: Endotracheal tube and nasogastric tube are stable. There is nonspecific hazy density in the perihilar regions and lung bases, slightly improved. No focal consolidation. No large volume pleural effusion. There is atherosclerotic calcification aortic arch. IMPRESSION: Mild interval improvement in perihilar and bibasilar density.
[2020-11-28] MEDS: Sodium Chloride 0.9% 1,000 ML IV SCH (09:40)
[2020-11-28] MEDS: Propofol 1,000 MG/100 ML VIAL IV PRN (09:40)
[2020-11-28] MEDS: Famotidine/PF 20 mg/2ml Vial SLOW IVP SCH ×2 (09:40→21:44)
[2020-11-28] MEDS: Rifaximin 550 MG TAB PER TUBE SCH ×2 (09:40→21:43)
[2020-11-28] MEDS ORDERED: Enoxaparin Sodium 40 MG/0.4 ML SYRINGE SC SCH (11:00)
[2020-11-28 12:51] LABS: ALT (SGPT) 59 U/L (8-55); AST (SGOT) 66 U/L (5-34); Alkaline Phosphatase 113 U/L (40-110); Bilirubin, Direct 0.6 mg/dL (0.1-0.3); Bilirubin, Total 2.4 mg/dL (0.2-1.2); Protein, Total 6.9 g/dL (5.8-8.1)
--- NOTE | 2020-11-28 20:24 | PRG ---
DATE OF SERVICE: 11/28/2020 SUBJECTIVE: Mr. Kurtz is in no distress. He was awakened and followed commands. He passed a spontaneous breathing trial . OBJECTIVE: VITAL SIGNS: He is afebrile. Heart rate in the 60s, blood pressure is 115/69 this afternoon, oximetry is 100%. LUNGS: Clear. HEART: Regular rhythm. ABDOMEN: Soft. EXTREMITIES: Without clubbing, cyanosis, or edema. LABORATORY DATA: White count 13.5, hemoglobin 13.7, platelets 110. Sodium 139, potassium 4.2, chloride 112, bicarb 18, BUN 21, creatinine 1.01. pH 7.43, CO2 of 26, pO2 of 119. IMPRESSION: 1. Hepatic encephalopathy. Currently, felt to be weanable. This was done successfully. 2. Hyperchloremic acidosis, it is likely iatrogenic. 3. Cirrhosis. 4. Hypertension. 5. Diabetes. Overall, he is stable at this time. He could be transferred out of Critical Care. He is stable for 4 to 6 hours Critical care time 30 min. Job ID: [id number] MTDD
[2020-11-29 04:00] LABS: #Lymphocytes 1.2 thou/uL (1.20-3.40); #Monocytes 0.4 thou/uL (0.11-0.59); #Neutrophils 10.9 thou/uL (1.40-6.50); %Basophils 0.1 % (0.0-1.0); %Eosinophils 0.1 % (0.0-10.0); %Lymphocytes 9.4 % (21.0-51.0); %Monocytes 3.5 % (0.0-10.0); %Neutrophils 86.9 % (42.0-75.0); Hemoglobin 12.7 g/dL (14.0-18.0); Mean Corpuscular HGB CONC 35.5 g/dL (32.0-36.0); Mean Corpuscular Hemoglobin 34.5 pg (27.0-31.0); Mean Corpuscular Volume 96.9 fL (78.0-98.0); Mean Platelet Volume 7.2 fL (7.4-10.4); Platelet Count 112 thou/uL (130-400); RBC Distribution Width 13.3 % (11.5-14.5); White Blood Cell (WBC) Count 12.6 thou/uL (4.8-10.8)
[2020-11-29 04:04] LABS: Anion Gap 13 mmol/L (10-20); BUN (Urea Nitrogen) 20 mg/dL (8.4-25.7); Calc. Creatinine Clearance 87 mL/min (70-130); Calcium 7.6 mg/dL (7.8-10.44); Carbon Dioxide 18 mmol/L (23-31); Chloride 110 mmol/L (98-107); Glucose 180 mg/dL (80-115); Potassium 3.7 mmol/L (3.5-5.1); Sodium 137 mmol/L (136-145)
[2020-11-29] MEDS: HumaLOG 300 UNITS/3 ML VIAL SC PRN ×4 (05:15→20:27)
[2020-11-29] MEDS: Hydrocortisone Sod Succ/PF 100 mg/2 ml Vial IVP SCH (05:17)
[2020-11-29] MEDS: Levothyroxine 100 MCG SDV IVP SCH (05:17)
--- NOTE | 2020-11-29 07:54 | RAD ---
Portable frontal chest radiograph: 11/29/2020 COMPARISON: 11/28/2020 HISTORY: Pneumonia FINDINGS: No pneumothorax or pleural fluid. No focal consolidation or alveolar edema. The endotrachea l tube and nasogastric tube have been removed. There is atherosclerotic calcification of the aortic arch. The patchy opacity in the perihilar regions has resolved. IMPRESSION: No significant residual parenchymal opacity.
[2020-11-29] MEDS: Enoxaparin Sodium 40 MG/0.4 ML SYRINGE SC SCH ×2 (09:00→09:01)
[2020-11-29] MEDS: Sodium Chloride 0.9% 1,000 ML IV SCH (09:00)
[2020-11-29] MEDS: Rifaximin 550 MG TAB PER TUBE SCH ×2 (09:00→20:25)
[2020-11-29] MEDS: Famotidine/PF 20 mg/2ml Vial SLOW IVP SCH ×2 (09:00→20:25)
--- NOTE | 2020-11-29 10:04 | PRG ---
DATE OF SERVICE: 11/29/2020 SUBJECTIVE: The patient is doing well, has no complaints. OBJECTIVE: VITAL SIGNS: Temperature 98.2, pulse 60, blood pressure 114/69. HEENT: Unremarkable. NECK: No adenopathy or JVD. CHEST: Clear. CARDIAC: S1, S2 regular. ABDOMEN: Soft. EXTREMITIES: No edema. LABORATORY DATA: Sodium 137, potassium 3.7, chloride 110, CO2 of 18, BUN 20, creatinine 1.0, glucose 180. White blood cell count 12, hematocrit 35, platelet count 112. IMAGING: X-ray demonstrates no mass, effusion, or infiltrate. ASSESSMENT: 1. Status post respiratory failure related to high ammonia level. 2. Improved mental status. PLAN: No real pulmonary issues at this point. We would recommend discussing with his GI specialist how best to handle this at home and to keep the episode from occurring. Please recall if further assistance needed. Job ID: [id number]
[2020-11-29] MEDS: Insulin Glargine 10 UNITS in Pre-Filled Syringe 1 EACH SC SCH (12:23)
--- NOTE | 2020-11-29 15:57 | PDOC.HOSPP ---
- Subjective Encounter Date: 11/29/20 Encounter Time: 15:49 Subjective: F/u : The patient states he is feeling good. He is a little confused and some of the sentences he says don't quite make sense. He is aware of the date. He complains his face feels swollen The patient doesn't remember anything about why he was admitted to the hospital but states he was in [place] a week ago and was in a coma, but wasn't sure why When he ambulated today, he was very unsteady and PT was recommended. Per nursing, they removed his andrade catheter and he still has not urinated yet Spoke with his PCP, patient is supposed to be on levothyroxine 175 mcg, victoza 1.2 mcg daily and lantus 50 units SC once daily. Called his pharmacy and patient filled 40 mcg lantus on 11/14. He is not filled any levothyroxine since 03/2020. Spoke to Brian in [place] patient's alternative pharmacy and he hasn't filled any medicines there since 02/2020 - Objective Vital Signs & Weight: Vital Signs (12 hours) Temp Pulse Resp BP Pulse Ox 11/29/20 12:33 98.0 F 74 20 128/73 99 11/29/20 07:48 99 11/29/20 07:40 97.6 F 68 16 128/75 99 11/29/20 07:24 100 11/29/20 04:00 98.2 F Weight Admit Weight 196 lb 10.437 oz Weight 196 lb 10.437 oz Most Recent Monitor Data Heart Rate from ECG 60 NIBP 114/69 NIBP BP-Mean 84 Respiration from ECG 9 SpO2 100 I&O: 11/28/20 11/29/20 11/30/20 06:59 06:59 06:59 Intake Total 1533.7 730.4 Output Total 865 745 Balance 668.7 -14.6 Result Diagrams: 11/29/20 03:32 11/29/20 03:32 Additional Labs: Accuchecks 11/29/20 11/28/20 11/28/20 11:26 21:56 16:01 POC Glucose 220 H 170 H 180 H Hospitalist ROS - Review of Systems Constitutional: denies: fever, chills - Medication Medications: Active Medications Generic Name Dose Route Start Last Admin Trade Name Freq PRN Reason Stop Dose Admin Enoxaparin Sodium 40 mg 11/29/20 09:00 11/29/20 09:01 Enoxaparin Sodium 40 Mg/0.4 Ml Syringe SC Not Given 0900 MARLENY Famotidine 20 mg 11/26/20 21:00 11/29/20 09:00 Famotidine/Pf 20 Mg/2ml Vial SLOW IVP 20 mg BID MARLENY Administration Sodium Chloride 1,000 mls @ 30 mls/hr 11/28/20 08:00 11/29/20 09:00 Normal Saline 0.9% IV 1,000 mls .Q24H MARLENY Administration Insulin Glargine 10 units/ 0.1 mls @ 0 mls/hr 11/29/20 09:00 11/29/20 12:23 Miscellaneous Medication SC 0.1 mls QAM MARLENY Administration Insulin Human Lispro 0 units 11/26/20 16:08 11/29/20 12:24 Humalog 300 Units/3 Ml Vial SC 3 unit .MILD SLIDING SCALE PRN Administration Mild Correctional Scale Lactulose 30 gm 11/26/20 15:00 11/29/20 09:00 Lactulose 20 Gm/30 Ml Udcup PER TUBE 30 gm TID MARLENY Administration Rifaximin 550 mg 11/26/20 21:00 11/29/20 09:00 Rifaximin 550 Mg Tab PER TUBE 550 mg BID MARLENY Administration Sodium Chloride 10 ml 11/28/20 09:00 11/29/20 09:01 Flush - Normal Saline 10 Ml Syringe IVF 10 ml Q12HR MARLENY Administration Hospitalist Exam Vitals: Vital Signs (12 hours) Temp Pulse Resp BP Pulse Ox 11/29/20 12:33 98.0 F 74 20 128/73 99 11/29/20 07:48 99 11/29/20 07:40 97.6 F 68 16 128/75 99 11/29/20 07:24 100 11/29/20 04:00 98.2 F Weight Admit Weight 196 lb 10.437 oz Weight 196 lb 10.437 oz Most Recent Monitor Data Heart Rate from ECG 60 NIBP 114/69 NIBP BP-Mean 84 Respiration from ECG 9 SpO2 100 General Appearance: NAD, awake alert Eye: PERRL, anicteric sclera ENT: normocephalic atraumatic, no oropharyngeal lesions ENT - other findings: mild thyromegaly Neck: no JVD Heart: RRR, no murmur, no gallops, no rubs Respiratory: CTAB, no wheezes, no rales, no ronchi Gastrointestinal: soft, non-tender, non-distended, normal bowel sounds Extremities: no cyanosis, no clubbing, no edema Skin: normal turgor, no lesions, no rashes Hosp A/P - Plan CT cervical spine: degenerative changes Chest Xray: normal CT head: no acute disease Abd US: fatty liver, gallbladder sludge Chest Xray 11/28: This is a 70 year old male with history of hypothyroidism who was found unresponsive with a GCS of 3 and was intubated in the field. He was found to have a TSH of 116. #Acute encephalopathy secondary to myexedema coma vs hyperammonemia #Severe hypothyroidism - TSH has improved from 127 to 15. Discontinue IV levothyroxine and switch to oral levothyroxin 175 mcg - discontinue hydrocortisone #Transaminitis - secondary to fatty liver vs alcohol #Hyperammonemia - ammonia has improved to 43. Continue rifaximin and lactulose. -Abd US showed fatty liver and galblladder sludge. Patient does drink 3-4 times a week Lactic acidosis - resolved. Chest Xray normal, UA negative #Type II diabetes - Hb A1C 9.2. Blood sugars 130-200. Continue lantus 10 units daily, on 50 units at home. Will consider increasing if sugars are uncontrolled Decreased urine output - andrade removed. Will bladder scan
[2020-11-29] MEDS: Cepastat Lozenges 1 LOZ PO PRN (21:06)
[2020-11-30] MEDS: Cepastat Lozenges 1 LOZ PO PRN ×2 (00:27→09:32)
[2020-11-30 08:58] LABS: Hemoglobin 11.6 g/dL (14.0-18.0); Mean Corpuscular HGB CONC 35.2 g/dL (32.0-36.0); Mean Corpuscular Hemoglobin 34.4 pg (27.0-31.0); Mean Corpuscular Volume 97.8 fL (78.0-98.0); Mean Platelet Volume 7.8 fL (7.4-10.4); Platelet Count 100 thou/uL (130-400); RBC Distribution Width 13.2 % (11.5-14.5); Red Blood Cell (RBC) Count 3.37 mill/uL (4.70-6.10); White Blood Cell (WBC) Count 9.1 thou/uL (4.8-10.8)
[2020-11-30] MEDS: Levothyroxine 175 MCG TAB PO SCH (09:28)
[2020-11-30] MEDS: Enoxaparin Sodium 40 MG/0.4 ML SYRINGE SC SCH (09:28)
[2020-11-30] MEDS: Sodium Chloride 0.9% 1,000 ML IV SCH (09:31)
[2020-11-30] MEDS: Rifaximin 550 MG TAB PER TUBE SCH ×2 (09:31→20:33)
[2020-11-30] MEDS: Famotidine/PF 20 mg/2ml Vial SLOW IVP SCH ×2 (09:31→20:33)
[2020-11-30] MEDS: Insulin Glargine 10 UNITS in Pre-Filled Syringe 1 EACH SC SCH (09:32)
--- NOTE | 2020-11-30 12:23 | PDOC.FMACP ---
Advance Care Planning - Problem (1) Palliative care encounter Status: Acute Code(s): Z51.5 - ENCOUNTER FOR PALLIATIVE CARE (2) Altered mental status Status: Acute Code(s): R41.82 - ALTERED MENTAL STATUS, UNSPECIFIED (3) Diabetes mellitus Status: Acute Code(s): E11.9 - TYPE 2 DIABETES MELLITUS WITHOUT COMPLICATIONS (4) Hypothyroidism Status: Acute Code(s): E03.9 - HYPOTHYROIDISM, UNSPECIFIED (5) Rhabdomyolysis Status: Acute Code(s): M62.82 - RHABDOMYOLYSIS - Note Participants: patient, palliative care Summary: Palliative care has addressed Advanced Care Planning. The diagnosis, prognosis and goals of care were discussed. Appropriate forms and documentation to accomplish the goals of care were discussed. All questions were answered. Mr Kurtz elected to complete a MPOA / original and copy provided to patient, copy also placed on chart for medical records. Directives provided, discussed. Patient elected not to complete at this time Continue with aggressive measures and treatment to sustain life. If we can assist in the future revisiting directives, complex decision making, goals of care please reconsult our team. Palliative care will sign off, thank you for this very appropriate consult. Time Spent (mins): 15
[2020-11-30] MEDS: HumaLOG 300 UNITS/3 ML VIAL SC PRN (12:52)
--- NOTE | 2020-11-30 18:21 | PDOC.HOSPP ---
- Subjective Encounter Date: 11/30/20 Subjective: Patient reports she feels good in general. Says he is not quite back to his baseline. Says primarily that is due to his equilibrium. He says he lives at home with a brother who can help care for him. - Objective Vital Signs & Weight: Vital Signs (12 hours) Temp Pulse Resp BP BP Pulse Ox 11/30/20 16:10 98.0 F 69 20 130/79 98 11/30/20 11:15 97.9 F 66 20 135/76 98 11/30/20 07:27 98.4 F 68 18 112/62 95 Weight Admit Weight 196 lb 10.437 oz Weight 196 lb 10.437 oz Most Recent Monitor Data Heart Rate from ECG 60 NIBP 114/69 NIBP BP-Mean 84 Respiration from ECG 9 SpO2 100 I&O: 11/29/20 11/30/20 12/01/20 06:59 06:59 06:59 Intake Total 730.4 750 Output Total 745 300 Balance -14.6 450 Result Diagrams: 11/30/20 06:00 11/29/20 03:32 Additional Labs: Accuchecks 11/30/20 11/30/20 11/30/20 16:14 11:17 05:11 POC Glucose 172 H 222 H 139 H 11/29/20 19:45 POC Glucose 239 H Hospitalist ROS - Medication Medications: Active Medications Generic Name Dose Route Start Last Admin Trade Name Freq PRN Reason Stop Dose Admin Enoxaparin Sodium 40 mg 11/29/20 09:00 11/30/20 09:28 Enoxaparin Sodium 40 Mg/0.4 Ml Syringe SC Not Given 0900 MARLENY Famotidine 20 mg 11/26/20 21:00 11/30/20 09:31 Famotidine/Pf 20 Mg/2ml Vial SLOW IVP 20 mg BID MARLENY Administration Sodium Chloride 1,000 mls @ 30 mls/hr 11/28/20 08:00 11/30/20 09:31 Normal Saline 0.9% IV Not Given .Q24H MARLENY Insulin Glargine 10 units/ 0.1 mls @ 0 mls/hr 11/29/20 09:00 11/30/20 09:32 Miscellaneous Medication SC 0.1 mls QAM MARLENY Administration Insulin Human Lispro 0 units 11/26/20 16:08 11/30/20 12:52 Humalog 300 Units/3 Ml Vial SC 3 unit .MILD SLIDING SCALE PRN Administration Mild Correctional Scale Lactulose 30 gm 11/26/20 15:00 11/30/20 14:20 Lactulose 20 Gm/30 Ml Udcup PER TUBE 30 gm TID MARLENY Administration Levothyroxine Sodium 175 mcg 11/30/20 06:00 11/30/20 09:28 Levothyroxine 175 Mcg Tab PO Not Given 0600 MARLENY Rifaximin 550 mg 11/26/20 21:00 11/30/20 09:31 Rifaximin 550 Mg Tab PER TUBE 550 mg BID MARLENY Administration Sodium Chloride 10 ml 11/28/20 09:00 11/30/20 09:32 Flush - Normal Saline 10 Ml Syringe IVF 10 ml Q12HR MARLENY Administration Throat Lozenges 1 shira 11/29/20 20:46 11/30/20 09:32 Cepastat Lozenges 1 Shira PO 1 shira Q2H PRN Administration Sore Throat Hospitalist Exam Vitals: Vital Signs (12 hours) Temp Pulse Resp BP BP Pulse Ox 11/30/20 16:10 98.0 F 69 20 130/79 98 11/30/20 11:15 97.9 F 66 20 135/76 98 11/30/20 07:27 98.4 F 68 18 112/62 95 Weight Admit Weight 196 lb 10.437 oz Weight 196 lb 10.437 oz Most Recent Monitor Data Heart Rate from ECG 60 NIBP 114/69 NIBP BP-Mean 84 Respiration from ECG 9 SpO2 100 General Appearance: NAD, awake alert Eye: PERRL, anicteric sclera Heart: RRR, no murmur, no gallops, no rubs, normal peripheral pulses Respiratory: CTAB, no wheezes, no rales, no ronchi, normal chest expansion, no tachypnea, normal percussion Gastrointestinal: soft, non-tender, non-distended, normal bowel sounds, no palpable masses, no hepatomegaly, no splenomegaly, no bruit Extremities: no cyanosis, no clubbing, no edema Skin: normal turgor Neurological: no focal deficits Musculoskeletal: generalized weakness Psychiatric: normal affect, normal behavior Hosp A/P (1) Hepatic encephalopathy Code(s): K72.90 - HEPATIC FAILURE, UNSPECIFIED WITHOUT COMA Status: Acute (2) Diabetes mellitus Code(s): E11.9 - TYPE 2 DIABETES MELLITUS WITHOUT COMPLICATIONS Status: Acute (3) Hypothyroidism Code(s): E03.9 - HYPOTHYROIDISM, UNSPECIFIED Status: Acute (4) Autoimmune hepatitis Code(s): K75.4 - AUTOIMMUNE HEPATITIS Status: Acute (5) Fatty liver Code(s): K76.0 - FATTY (CHANGE OF) LIVER, NOT ELSEWHERE CLASSIFIED Status: Acute (6) Physical debility Code(s): R53.81 - OTHER MALAISE Status: Acute - Plan Hepatic encephalopathy: Patient remains on lactulose and Xifaxan. Ammonia level has improved. Patient's mental status has substantially improved. Hypothyroidism: Patient's TSH is all over the place. Unsure what to make of substantial changes from day today. Should likely not be following a daily but potentially recheck it in about 6 weeks after he has been on a full course of treatment. Continue with oral levothyroxine. Diabetes mellitus: Patient is currently on sliding scale insulin as well as some Lantus. He will need some medications for home as it does not look like he was on any when he got here. Noncompliance: Patient reports that he cut back on his medications. He initially told me that he did not know why but subsequently came back and sa id it was because of financial issues. Discussed with case management to see if there is anything we can do to try to help him get some of his medications. General debility: Patient was assessed by physical therapy. Looks like he was able to walk about 160 feet but was unsteady with his gait. Recommendation was for rehabilitation. Will have them reassess him tomorrow to see if he is making rapid improvement and can go home with home health. DVT prophylaxis: Lovenox PUD prophylaxis: Famotidine.
[2020-12-01] MEDS: Levothyroxine 175 MCG TAB PO SCH (05:44)
[2020-12-01] MEDS: HumaLOG 300 UNITS/3 ML VIAL SC PRN ×4 (05:46→20:25)
[2020-12-01] MEDS: Sodium Chloride 0.9% 1,000 ML IV SCH (08:15)
[2020-12-01] MEDS: Enoxaparin Sodium 40 MG/0.4 ML SYRINGE SC SCH (08:16)
[2020-12-01] MEDS: Famotidine/PF 20 mg/2ml Vial SLOW IVP SCH (08:18)
[2020-12-01] MEDS: Insulin Glargine 10 UNITS in Pre-Filled Syringe 1 EACH SC SCH (08:18)
[2020-12-01] MEDS: Rifaximin 550 MG TAB PER TUBE SCH ×2 (08:18→20:17)
--- NOTE | 2020-12-01 15:06 | PDOC.HOSPP ---
- Subjective Encounter Date: 12/01/20 Subjective: Reports he is doing fine. He was able to get up with physical therapy this morning. Otherwise he has no major complaints. - Objective Vital Signs & Weight: Vital Signs (12 hours) Temp Pulse Resp BP BP Pulse Ox 12/01/20 08:27 97 12/01/20 08:03 98.7 F 71 18 143/77 H 97 12/01/20 05:38 98.6 F 78 16 124/74 94 L Weight Admit Weight 196 lb 10.437 oz Weight 196 lb 10.437 oz Most Recent Monitor Data Heart Rate from ECG 60 NIBP 114/69 NIBP BP-Mean 84 Respiration from ECG 9 SpO2 100 I&O: 11/30/20 12/01/20 12/02/20 06:59 06:59 06:59 Intake Total 750 Output Total 300 Balance 450 Result Diagrams: 11/30/20 06:00 11/29/20 03:32 Additional Labs: Accuchecks 12/01/20 12/01/20 11/30/20 11:02 04:16 19:19 POC Glucose 232 H 203 H 201 H 11/30/20 16:14 POC Glucose 172 H Hospitalist ROS - Medication Medications: Active Medications Generic Name Dose Route Start Last Admin Trade Name Freq PRN Reason Stop Dose Admin Enoxaparin Sodium 40 mg 11/29/20 09:00 12/01/20 08:16 Enoxaparin Sodium 40 Mg/0.4 Ml Syringe SC 40 mg 0900 MARLENY Administration Sodium Chloride 1,000 mls @ 30 mls/hr 11/28/20 08:00 12/01/20 08:15 Normal Saline 0.9% IV Not Given .Q24H MARLENY Insulin Glargine 10 units/ 0.1 mls @ 0 mls/hr 11/29/20 09:00 12/01/20 08:18 Miscellaneous Medication SC 0.1 mls QAM MARLENY Administration Insulin Human Lispro 0 units 11/26/20 16:08 12/01/20 11:41 Humalog 300 Units/3 Ml Vial SC 3 unit .MILD SLIDING SCALE PRN Administration Mild Correctional Scale Levothyroxine Sodium 175 mcg 11/30/20 06:00 12/01/20 05:44 Levothyroxine 175 Mcg Tab PO 175 mcg 0600 MARLENY Administration Rifaximin 550 mg 11/26/20 21:00 12/01/20 08:18 Rifaximin 550 Mg Tab PER TUBE 550 mg BID MARLENY Administration Sodium Chloride 10 ml 11/28/20 09:00 12/01/20 08:18 Flush - Normal Saline 10 Ml Syringe IVF 10 ml Q12HR MARLENY Administration Throat Lozenges 1 shira 11/29/20 20:46 11/30/20 09:32 Cepastat Lozenges 1 Shira PO 1 shira Q2H PRN Administration Sore Throat Hospitalist Exam Vitals: Vital Signs (12 hours) Temp Pulse Resp BP BP Pulse Ox 12/01/20 08:27 97 12/01/20 08:03 98.7 F 71 18 143/77 H 97 12/01/20 05:38 98.6 F 78 16 124/74 94 L Weight Admit Weight 196 lb 10.437 oz Weight 196 lb 10.437 oz Most Recent Monitor Data Heart Rate from ECG 60 NIBP 114/69 NIBP BP-Mean 84 Respiration from ECG 9 SpO2 100 General Appearance: NAD, awake alert Heart: RRR, no murmur, no gallops, no rubs, normal peripheral pulses Respiratory: CTAB, no wheezes, no rales, no ronchi, normal chest expansion, no tachypnea, normal percussion Gastrointestinal: soft, non-tender, non-distended, normal bowel sounds, no palpable masses, no hepatomegaly, no splenomegaly, no bruit Extremities: no cyanosis, no clubbing, no edema Skin: normal turgor Neurological: no focal deficits Musculoskeletal: normal tone Psychiatric: normal affect, normal behavior, A&O x 3 Hosp A/P (1) Hepatic encephalopathy Code(s): K72.90 - HEPATIC FAILURE, UNSPECIFIED WITHOUT COMA Status: Acute (2) Diabetes mellitus Code(s): E11.9 - TYPE 2 DIABETES MELLITUS WITHOUT COMPLICATIONS Status: Acute (3) Hypothyroidism Code(s): E03.9 - HYPOTHYROIDISM, UNSPECIFIED Status: Acute (4) Fatty liver Code(s): K76.0 - FATTY (CHANGE OF) LIVER, NOT ELSEWHERE CLASSIFIED Status: Acute (5) Physical debility Code(s): R53.81 - OTHER MALAISE Status: Acute (6) Cirrhosis Code(s): K74.60 - UNSPECIFIED CIRRHOSIS OF LIVER Status: Acute - Plan Hepatic encephalopathy: Patient presented to the outside emergency department after being found unresponsive by roommate (which I believe is his brother). Patient required intubation in the field. Initially with an ammonia level of greater than 200. He was started on Xifaxan and lactulose. His ammonia level came down promptly and his mental status improved contemporaneously. Patient remains on lactulose and Xifaxan. Ammonia level has improved. Patient's mental status has substantially improved. Hypothyroidism: Patient has a history of thyroid ablation and significant hypothyroidism. Patient was admitted by me back in 2018 with severe hypothyroidism. Patient is clearly not taking medications at home. He initially required some IV levothyroxine. Subsequently converted to oral regimen. Should have his TSH checked in about 6 weeks. Cirrhosis: Reviewing the patient's record there is a history of CT scan revealing significant cirrhotic changes of the liver. 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 Record also indicates prior evaluation included a negative hepatitis panel, normal alpha-1 antitrypsin level normal ceruloplasmin. Ultrasound from this visit only revealed evidence of fatty liver. Patient tells me today that he has had 2 sisters that have had liver failure. One of them obtained a liver transplant. He tells me he is unaware of any prior liver issues. Is mild persistent transaminitis. We will consult GI. Diabetes mellitus: Patient is currently on sliding scale insulin as well as some Lantus. He will need some medications for home as it does not look like he was on any when he got here. Hemoglobin A1c was 9.2. Noncompliance: Patient reports that he cut back on his medications. He initially told me that he did not know why but subsequently came back and said it was because of financial issues. Discussed with case management to see if there is anything we can do to try to help him get some of his medications. General debility: Patient was assessed by physical therapy. Looks like he was able to walk about 160 feet but was unsteady with his gait. Recommendation was for rehabilitation. After reassessment on 12/01/2020 I talked to physical therapy again. Recommendation is still for rehab. Patient is amenable. Discussed with case management. DVT prophylaxis: Lovenox PUD prophylaxis: Famotidine.
[2020-12-01] MEDS: Famotidine 20 MG TAB PO SCH (20:17)
--- NOTE | 2020-12-01 22:55 | CON ---
DATE OF CONSULTATION: 12/01/2020 HISTORY OF PRESENT ILLNESS: The patient is a 70-year-old gentleman, who presented to the emergency room after he was found unresponsive. His serum ammonia was noted to be 200. He has been given lactulose and Xifaxan and has improved markedly. He is aware of his liver disease and it looks like from 2016 CT showed cirrhosis of the liver. He is not sure of the etiology of his cirrhosis. He denies any alcohol use. Multiple family members have liver disease, many of his siblings. One sister has been transplanted. However, he is not sure of the reason for their liver disease. PAST MEDICAL HISTORY: Diabetes, hypertension, hypothyroidism, and cirrhosis. PAST SURGICAL HISTORY: Includes hand surgery. FAMILY HISTORY: Significant for multiple family members with liver disease. MEDICATIONS: Include levothyroxine 200 mcg p.o. daily. ALLERGIES: INCLUDE METFORMIN. REVIEW OF SYSTEMS: Ten systems were reviewed and were negative except for above. PHYSICAL EXAMINATION: GENERAL: Shows an elderly male, in no acute distress. VITAL SIGNS: Temperature 98.7, pulse 71, respiratory rate 18, and blood pressure 143/77. HEENT: Unremarkable. NECK: Supple. CHEST: Clear. CARDIOVASCULAR: Regular rate and rhythm without murmurs or gallops. ABDOMEN: Soft, nontender without organomegaly or masses. Bowel sounds are present, normoactive. RECTAL: Deferred. EXTREMITIES: Normal. NEUROLOGIC: Nonfocal. LABORATORY DATA: Shows negative BRAYAN screen from 2016. Antimitochondrial antibody of 4.2 and a smooth muscle antibody of 11. Hepatitis C antibody from 2016 is negative. Hepatitis A antibody is positive. Hepatitis B surface antigen and antibody are nonreactive. Chemistry shows TSH of 73.57. AST was 62, ALT of 65, alkaline phosphatase 119, and total bilirubin 2.1. CBC shows a white blood cell count of 9.1, hemoglobin of 11.6, hematocrit of 33.0, platelet count of a 100. Abdominal ultrasound from 11/26/2020 showed fatty liver and gallbladder sludge. ASSESSMENT: 1. Cryptogenic cirrhosis. It is interesting this patient has multiple family members with cirrhosis and one sibling who has undergone a transplant. There is mention in the medical record somewhere of autoimmune hepatitis; however, with the patient's BRAYAN negative, smooth muscle antibody negative and mitochondrial antibody, this makes autoimmune hepatitis and primary biliary cirrhosis very unlikely. Most likely, the patient has fatty liver from his diabetes and has cirrhosis secondary to that. 2. Hepatic encephalopathy. Seems to be much improved. 3. Diabetes mellitus. RECOMMENDATIONS: 1. Stable from GI standpoint for discharge. 2. Discharge on chronic dose of lactulose and Xifaxan. 3. Follow up in GI Clinic for further evaluation and treatment of his liver disease. Job ID: [id number]
[2020-12-02] MEDS: Levothyroxine 175 MCG TAB PO SCH (05:15)
[2020-12-02] MEDS: Famotidine 20 MG TAB PO SCH (08:27)
[2020-12-02] MEDS: Insulin Glargine 10 UNITS in Pre-Filled Syringe 1 EACH SC SCH (08:27)
[2020-12-02] MEDS: Rifaximin 550 MG TAB PER TUBE SCH (08:27)
[2020-12-02] MEDS: Sodium Chloride 0.9% 1,000 ML IV SCH (08:27)
[2020-12-02] MEDS: Enoxaparin Sodium 40 MG/0.4 ML SYRINGE SC SCH (08:27)
--- NOTE | 2020-12-02 12:01 | PRG ---
DATE OF SERVICE: 12/02/2020 SUBJECTIVE: The patient seems more alert and oriented today. He is having no abdominal pain. No nausea or vomiting. He had one bowel movement reportedly today and had one yesterday. OBJECTIVE: VITAL SIGNS: Temperature 99.1, pulse of 74, respiratory rate 20, blood pressure 122/63. CHEST: Clear. CARDIOVASCULAR: Regular rate and rhythm. ABDOMEN: Soft and nontender without organomegaly or masses. Slightly protuberant. LABORATORY DATA: Show a glucose of 220. 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 2. Hepatic encephalopathy - seems to be improving. 3. Diabetes mellitus. 4. Thyroid dysfunction. RECOMMENDATIONS: 1. Continue lactulose and Xifaxan. 2. Have the patient follow up in the outpatient setting with GI. 3. We will follow at a distance. Job ID: [id number]
[2020-12-02] MEDS: HumaLOG 300 UNITS/3 ML VIAL SC PRN ×2 (12:58→17:56)
[2020-12-02 17:43] VITALS: BP 138/79; TEMP 98.8
--- NOTE | 2020-12-03 14:08 | PDOC.DS.DS ---
Provider Date of Admission: 11/26/20 10:28 Date of Discharge: 12/03/20 Admitting Provider: Lilliana Devine MD Primary Care Physician: Unknown Course Hospital Course: Hepatic encephalopathy: Patient presented to the outside emergency department after being found unresponsive by roommate. Patient required intubation in the field. Initially with an ammonia level of greater than 200. He was started on Xifaxan and lactulose. His ammonia level came down promptly and his mental status improved contemporaneously. Patient remains on lactulose and Xifaxan. Ammonia level has improved. Patient's mental status has substantially improved. Hypothyroidism: Patient has a history of thyroid ablation and significant hypothyroidism. Patient was admitted by me back in 2018 with severe hypothyroidism. Patient is clearly not taking medications at home. He initially required some IV levothyroxine. Subsequently converted to oral regimen. Should have his TSH checked in about 6 weeks. Cirrhosis: Reviewing the patient's record there is a history of CT scan revealing significant cirrhotic changes of the liver. 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 Record also indicates prior evaluation included a negative hepatitis panel, normal alpha-1 antitrypsin level normal ceruloplasmin. Ultrasound from this visit only revealed evidence of fatty liver. He has 2 sisters that have had liver failure. One of them obtained a liver transplant. He was unaware of any prior liver issues. Is mild persistent transaminitis. GI was consulted. Suspected that the patient likely had fatty liver disease resulting in some cirrhotic changes. Recommended outpatient follow-up in the clinic. Diabetes mellitus: Patient is currently on sliding scale insulin as well as some Lantus. Hemoglobin A1c was 9.2. He was prescribed Lantus at discharge Noncompliance: Patient reports that he cut back on his medications. He initially told me that he did not know why but subsequently came back and said it was because of financial issues. Discussed with case management to help connect him with any assistance that may be available to him. General debility: Patient was assessed by physical therapy. Initially the patient had some balance issues. The recommendation was for consideration of rehab. [facility] It was his recommendation that the patient go home and continue with home health. DVT prophylaxis: Lovenox PUD prophylaxis: Famotidine. Lab Results: 11/30/20 06:00 11/29/20 03:32 Vitals: Weight Admit Weight 196 lb 10.437 oz Weight 196 lb 10.437 oz Most Recent Monitor Data Heart Rate from ECG 60 NIBP 114/69 NIBP BP-Mean 84 Respiration from ECG 9 SpO2 100 Physical Exam: The patient was seen and examined on the day of discharge. Problem (1) Hepatic encephalopathy Code(s): K72.90 - HEPATIC FAILURE, UNSPECIFIED WITHOUT COMA Status: Acute (2) Diabetes mellitus Code(s): E11.9 - TYPE 2 DIABETES MELLITUS WITHOUT COMPLICATIONS Status: Acute (3) Hypothyroidism Code(s): E03.9 - HYPOTHYROIDISM, UNSPECIFIED Status: Acute (4) Fatty liver Code(s): K76.0 - FATTY (CHANGE OF) LIVER, NOT ELSEWHERE CLASSIFIED Status: Acute (5) Physical debility Code(s): R53.81 - OTHER MALAISE Status: Acute (6) Cirrhosis Code(s): K74.60 - UNSPECIFIED CIRRHOSIS OF LIVER Status: Acute Time Spent in discharge related activities (mins): 35 Plan Prescriptions: Lactulose 20 gm PO TID #90 udcup Insulin Glargine [Lantus Vial] 10 units SC QAM #1 vial Levothyroxine Sodium [Synthroid] 175 mcg PO 0600 #30 tab Rifaximin [Xifaxan] 550 mg PO BID #60 tablet Home Medications: Medication Instructions Recorded Confirmed Type Insulin Glargine [Lantus Vial] 10 units SC QAM #1 vial 12/02/20 Rx Lactulose 20 gm PO TID #90 udcup 12/02/20 Rx Levothyroxine Sodium [Synthroid] 175 mcg PO 0600 #30 tab 12/02/20 Rx Rifaximin [Xifaxan] 550 mg PO BID #60 tablet 12/02/20 Rx Allergies: metformin Allergy (Verified 11/26/20 11:55) Nausea CAUSES NAUSEA AND VOMITTING Activity:: Activity as Tolerated Therapies:: Physical Therapy Referrals: [facility] [Outside] Juvenal Wilcox MD [Active] - () Kalyan Boo MD [Active] - 7 Days Disposition: HOME HEALTH Quality CORE MEASURES:: N/A
== END 2020-12-02 19:38 | disposition home health service (06) | DRG 441 ==
LOC: ERS 10:27 → IMCU/EMU 10:28 → T4-A 11-29 08:02
PROVIDERS: ADMIT Internal Medicine; ATTEND Internal Medicine
PROC: 5A1945Z Respiratory Ventilation, 24-96 Consecutive Hours (ICD-10-PCS; principal; 2020-11-26)
DX: K72.00 Acute and subacute hepatic failure without coma (principal); J96.00 Acute respiratory failure, unspecified whether with hypoxia or hypercapnia; E87.2 Acidosis; M62.82 Rhabdomyolysis; Z20.822 Contact with and (suspected) exposure to COVID-19; E03.9 Hypothyroidism, unspecified; I86.8 Varicose veins of other specified sites; E11.9 Type 2 diabetes mellitus without complications; K74.69 Other cirrhosis of liver; J44.9 Chronic obstructive pulmonary disease, unspecified; Z78.1 Physical restraint status; Z28.82 Immunization not carried out because of caregiver refusal; Z91.14 Patient's other noncompliance with medication regimen; Z88.8 Allergy status to other drugs, medicaments and biological substances; Z79.890 Hormone replacement therapy; Z79.899 Other long term (current) drug therapy; Z83.79 Family history of other diseases of the digestive system; Z83.6 Family history of other diseases of the respiratory system; Z86.19 Personal history of other infectious and parasitic diseases
CPT/HCPCS: 0240U; 36415; 36416; 36600; 71045; 76705; 80048; 80076; 80306; 82140; 82533; 82553; 82805; 83036; 83605; 84439; 84443; 84484; 85025; 85027; 85610; 85730; 94002; 96365; 96366; 96368; 96374; 96375; J1650; J1720; J1815; J2704; J3010; J3490; S0028

== ENCOUNTER 2021-08-31 20:28 | Inpatient (IN) | payer MEDICARE ==
[2021-08-31 21:32] LABS: #Eosinphils 0.1 thou/uL (0.0-0.7); #Lymphocytes 0.8 thou/uL (1.20-3.40); #Monocytes 1.1 thou/uL (0.11-0.59); #Neutrophils 12.1 thou/uL (1.40-6.50); %Basophils 0.1 % (0.0-1.0); %Eosinophils 0.6 % (0.0-10.0); %Lymphocytes 5.7 % (21.0-51.0); %Monocytes 7.8 % (0.0-10.0); %Neutrophils 85.8 % (42.0-75.0); Hemoglobin 13.4 g/dL (14.0-18.0); Mean Corpuscular HGB CONC 35.2 g/dL (32.0-36.0); Mean Corpuscular Volume 99.4 fL (78.0-98.0); Mean Platelet Volume 7.6 fL (7.4-10.4); Platelet Count 139 thou/uL (130-400); RBC Distribution Width 14.7 % (11.5-14.5); Red Blood Cell (RBC) Count 3.84 mill/uL (4.70-6.10); White Blood Cell (WBC) Count 14.1 thou/uL (4.8-10.8)
[2021-08-31 21:45] LABS: ALT (SGPT) 105 U/L (8-55); AST (SGOT) 165 U/L (5-34); Albumin 2.2 g/dL (3.4-4.8); Alkaline Phosphatase 279 U/L (40-110); Anion Gap 18 mmol/L (10-20); BUN (Urea Nitrogen) 51 mg/dL (8.4-25.7); Bilirubin, Total 22.6 mg/dL (0.2-1.2); Calc. Creatinine Clearance 0 mL/min (70-130); Calcium 7.8 mg/dL (7.8-10.44); Carbon Dioxide 17 mmol/L (23-31); Chloride 103 mmol/L (98-107); Globulin 3.5 g/dL (2.4-3.5); Glucose 113 mg/dL (83-110); Lipase 99 U/L (8-78); Potassium 4.3 mmol/L (3.5-5.1); Protein, Total 5.7 g/dL (5.8-8.1); Sodium 134 mmol/L (136-145)
[2021-08-31 22:11] LABS: INR-International Normal Ratio 1.5; PTT 37.3 sec (22.9-36.1); Prothrombin Time 18.5 sec (12.0-14.7)
[2021-08-31] MEDS ORDERED: cefTRIAXone\\ROCEPHIN 1 GM VIAL ONE (22:19)
[2021-08-31 23:03] LABS: Bilirubin 4+ (Negative); Blood, Urine Negative (Negative); Clarity Turbid (Clear); Glucose, Urine (Dipstick) Normal (Negative); Ketone, Urine 10 mg/dL (Negative); Leukocyte Negative Leu/uL (Negative); Nitrite Negative (Negative); Protein, Urine (Dipstick) 20 mg/dL (Neg-Trace)
[2021-08-31] MEDS ORDERED: Vancomycin 1 GM/200 ML BAG ONE (23:33)
[2021-09-01] LABS: BF Color Yellow; Body Fluid Source Peritoneal Fluid; Clarity Hazy (Clear); Tube # 1
[2021-09-01 00:13] LABS: RBC Count-Automated (BF) 281 /cu.mm; WBC/Nucleated-Auto (BF) 971 /cu.mm
[2021-09-01 00:33] LABS: BF Segmented Neutrophils 63 %; Cell Count Non Hematic 29 %; Lymphocytes 8 %
[2021-09-01] MEDS ORDERED: Ondansetron PF 4 MG/2 ML Vial IVP PRN (00:43)
[2021-09-01] MEDS ORDERED: Acetaminophen 325 MG TAB PO PRN (00:43)
[2021-09-01] MEDS ORDERED: HumaLOG 300 UNITS/3 ML VIAL SC PRN (00:58)
[2021-09-01] MEDS ORDERED: Dextrose 50% Abboject 50 ML SYRINGE SLOW IVP PRN (00:58)
[2021-09-01] MEDS ORDERED: Dextrose 5% in Water 1,000 ML IV PRN (00:58)
[2021-09-01 01:14] LABS: Lactic Acid 2.5 mmol/L (0.5-2.2)
[2021-09-01] MEDS ORDERED: cefTRIAXone\\ROCEPHIN 1 GM in Sodium Chloride 0.9% 100 ML IVPB SCH (01:30)
[2021-09-01] MEDS ORDERED: Midodrine HCl 5 MG TAB PO SCH (02:30)
[2021-09-01] MEDS: Albumin 25% 25 GM/100 ML BOT IVPB SCH ×4 (02:53→21:13)
[2021-09-01] MEDS: Octreotide Acetate 100 MCG/ML VIAL SC SCH ×3 (02:54→18:24)
[2021-09-01] MEDS ORDERED: MEROPENEM 1 GM/50 ML 1 GM in Premix Bag 1 BAG IVPB SCH (03:00)
[2021-09-01 03:45] LABS: SARS-CoV-2 NAA Rapid Test Not Detected (NotDetected)
[2021-09-01 04:31] LABS: ALT (SGPT) 96 U/L (8-55); AST (SGOT) 151 U/L (5-34); Albumin 2.5 g/dL (3.4-4.8); Alkaline Phosphatase 261 U/L (40-110); Anion Gap 15 mmol/L (10-20); BUN (Urea Nitrogen) 54 mg/dL (8.4-25.7); Bilirubin, Total 21.9 mg/dL (0.2-1.2); Calc. Creatinine Clearance 55 mL/min (70-130); Calcium 8.1 mg/dL (7.8-10.44); Carbon Dioxide 20 mmol/L (23-31); Chloride 104 mmol/L (98-107); Globulin 3.2 g/dL (2.4-3.5); Glucose 118 mg/dL (83-110); Potassium 3.8 mmol/L (3.5-5.1); Protein, Total 5.7 g/dL (5.8-8.1); Sodium 135 mmol/L (136-145)
[2021-09-01 04:33] LABS: Hemoglobin 11.8 g/dL (14.0-18.0); Mean Corpuscular HGB CONC 34.5 g/dL (32.0-36.0); Mean Corpuscular Hemoglobin 34.6 pg (27.0-31.0); RBC Distribution Width 14.7 % (11.5-14.5); Red Blood Cell (RBC) Count 3.39 mill/uL (4.70-6.10); White Blood Cell (WBC) Count 9.8 thou/uL (4.8-10.8)
[2021-09-01 05:22] LABS: #Eosinphils 0.1 thou/uL (0.0-0.7); #Lymphocytes 0.8 thou/uL (1.20-3.40); #Monocytes 0.8 thou/uL (0.11-0.59); %Eosinophils 1.2 % (0.0-10.0); %Lymphocytes 8.6 % (21.0-51.0); %Monocytes 8.5 % (0.0-10.0); %Neutrophils 81.7 % (42.0-75.0); Mean Platelet Volume 7.5 fL (7.4-10.4); Platelet Count 108 thou/uL (130-400); Platelet Morphology Comment Appears Decreased
[2021-09-01] MEDS: Heparin 5,000 UNITS/ML VIAL SC SCH ×3 (08:24→21:06)
[2021-09-01] MEDS ORDERED: Albumin 25% 25 GM/100 ML BOT IVPB SCH (09:00)
[2021-09-01] MEDS: Pantoprazole 40 MG GRANULES PACKET PO SCH (09:36)
[2021-09-01] MEDS: Sodium Chloride 0.9% 1,000 ML IV SCH (09:36)
[2021-09-01] MEDS: Rifaximin 550 MG TAB PO SCH ×2 (09:36→21:06)
[2021-09-01] MEDS: Midodrine HCl 5 MG TAB PO SCH ×3 (09:36→21:06)
[2021-09-01] MEDS ORDERED: Lidocaine 1% PF 5 ML VIAL ONE (10:55)
[2021-09-01] MEDS ORDERED: Sodium Bicarbonate 2.5 MEQ/5 ML VIAL ONE (10:55)
[2021-09-01] MEDS: MEROPENEM 1 GM/50 ML 1 GM in Premix Bag 1 BAG IVPB SCH ×2 (12:43→23:01)
[2021-09-01 17:30] LABS: Anion Gap 17 mmol/L (10-20); BUN (Urea Nitrogen) 53 mg/dL (8.4-25.7); Calc. Creatinine Clearance 55 mL/min (70-130); Carbon Dioxide 17 mmol/L (23-31); Chloride 107 mmol/L (98-107); Potassium 3.6 mmol/L (3.5-5.1); Sodium 137 mmol/L (136-145)
[2021-09-01 17:31] LABS: ALT (SGPT) 82 U/L (8-55); AST (SGOT) 126 U/L (5-34); Albumin 2.9 g/dL (3.4-4.8); Alkaline Phosphatase 228 U/L (40-110); Bilirubin, Total 19.9 mg/dL (0.2-1.2); Calcium 8.1 mg/dL (7.8-10.44); Globulin 2.7 g/dL (2.4-3.5); Glucose 117 mg/dL (83-110); Protein, Total 5.6 g/dL (5.8-8.1)
[2021-09-01] MEDS: VANCOMYCIN 1.25 GM/250 ML BAG 1.25 GM in Premix Bag 1 BAG IVPB SCH (18:24)
[2021-09-01] MEDS ORDERED: Sodium Bicarbonate 150 MEQ in Dextrose 5% in Water 1,000 ML IV SCH (19:45)
[2021-09-02] MEDS: Sodium Chloride 0.9% 1,000 ML IV SCH ×2 (00:18→16:18)
[2021-09-02] MEDS ORDERED: cefTRIAXone\\ROCEPHIN 2 GM in Sodium Chloride 0.9% 100 ML IVPB SCH (01:30)
[2021-09-02] MEDS: Octreotide Acetate 100 MCG/ML VIAL SC SCH (02:47)
[2021-09-02 03:43] LABS: Creatinine, Urine 157.28 mg/dL (63-166); Protein, Urine Random Quant Less than 10 mg/dL (1-14); Sodium, Urine Less than 20 mmol/L (Not Available)
[2021-09-02 04:08] LABS: #Basophils 0.1 thou/uL (0.0-0.2); #Eosinphils 0.1 thou/uL (0.0-0.7); #Lymphocytes 0.7 thou/uL (1.20-3.40); #Monocytes 0.6 thou/uL (0.11-0.59); #Neutrophils 6.6 thou/uL (1.40-6.50); %Basophils 1.8 % (0.0-1.0); %Eosinophils 1.6 % (0.0-10.0); %Lymphocytes 8.7 % (21.0-51.0); %Monocytes 7.3 % (0.0-10.0); %Neutrophils 80.7 % (42.0-75.0); Hemoglobin 10.8 g/dL (14.0-18.0); Mean Corpuscular HGB CONC 36.1 g/dL (32.0-36.0); Mean Corpuscular Hemoglobin 35.9 pg (27.0-31.0); Mean Corpuscular Volume 99.5 fL (78.0-98.0); Mean Platelet Volume 7.6 fL (7.4-10.4); Platelet Count 79 thou/uL (130-400); RBC Distribution Width 14.9 % (11.5-14.5); White Blood Cell (WBC) Count 8.2 thou/uL (4.8-10.8)
[2021-09-02 04:38] LABS: ALT (SGPT) 73 U/L (8-55); AST (SGOT) 108 U/L (5-34); Albumin 2.8 g/dL (3.4-4.8); Alkaline Phosphatase 199 U/L (40-110); Anion Gap 13 mmol/L (10-20); BUN (Urea Nitrogen) 51 mg/dL (8.4-25.7); Bilirubin, Total 18.2 mg/dL (0.2-1.2); Calc. Creatinine Clearance 53 mL/min (70-130); Carbon Dioxide 19 mmol/L (23-31); Chloride 108 mmol/L (98-107); Globulin 2.3 g/dL (2.4-3.5); Glucose 204 mg/dL (83-110); Potassium 3.4 mmol/L (3.5-5.1); Protein, Total 5.1 g/dL (5.8-8.1); Sodium 137 mmol/L (136-145)
[2021-09-02] MEDS: Levothyroxine 175 MCG TAB PO SCH (05:22)
[2021-09-02] MEDS ORDERED: Potassium Chloride 20 MEQ TAB PO SCH (07:00)
[2021-09-02] MEDS: Rifaximin 550 MG TAB PO SCH ×2 (08:04→21:26)
[2021-09-02] MEDS: Pantoprazole 40 MG GRANULES PACKET PO SCH (08:04)
[2021-09-02] MEDS: Midodrine HCl 5 MG TAB PO SCH ×3 (08:04→21:26)
[2021-09-02] MEDS: Albumin 25% 25 GM/100 ML BOT IVPB SCH ×3 (08:04→21:33)
[2021-09-02] MEDS: Heparin 5,000 UNITS/ML VIAL SC SCH ×3 (08:06→21:27)
[2021-09-02] MEDS ORDERED: Octreotide Acetate 100 MCG/ML VIAL SC SCH (10:00)
[2021-09-02] MEDS: MEROPENEM 1 GM/50 ML 1 GM in Premix Bag 1 BAG IVPB SCH ×2 (12:10→22:52)
[2021-09-02] MEDS: Octreotide Acetate 50 MCG/ML AMP SC SCH ×2 (12:11→18:50)
[2021-09-02] MEDS ORDERED: Sodium Bicarbonate 150 MEQ in Dextrose 5% in Water 1,000 ML IV SCH (15:45)
[2021-09-02 17:16] LABS: Vancomycin, Trough 12.3 ug/mL
[2021-09-02] MEDS: VANCOMYCIN 1.25 GM/250 ML BAG 1.25 GM in Premix Bag 1 BAG IVPB SCH (17:28)
[2021-09-02] MEDS ORDERED: Vancomycin 1.5 GRAM/300 ML BAG 1.5 GM in Premix Bag 1 BAG IVPB SCH (18:00)
[2021-09-03] MEDS: Octreotide Acetate 50 MCG/ML AMP SC SCH (01:14)
[2021-09-03] MEDS: Octreotide Acetate 500 MCG/ML VIAL SC SCH ×3 (03:52→17:05)
[2021-09-03 05:12] LABS: #Eosinphils 0.1 thou/uL (0.0-0.7); #Lymphocytes 1.3 thou/uL (1.20-3.40); #Monocytes 0.7 thou/uL (0.11-0.59); %Basophils 0.1 % (0.0-1.0); %Eosinophils 1.6 % (0.0-10.0); %Lymphocytes 15.9 % (21.0-51.0); %Monocytes 8.1 % (0.0-10.0); %Neutrophils 74.4 % (42.0-75.0); Hemoglobin 9.8 g/dL (14.0-18.0); Mean Corpuscular HGB CONC 33.1 g/dL (32.0-36.0); Mean Corpuscular Hemoglobin 33.7 pg (27.0-31.0); Mean Platelet Volume 8.1 fL (7.4-10.4); Platelet Count 69 thou/uL (130-400); RBC Distribution Width 15.3 % (11.5-14.5); Red Blood Cell (RBC) Count 2.91 mill/uL (4.70-6.10)
[2021-09-03 05:14] LABS: ALT (SGPT) 66 U/L (8-55); AST (SGOT) 96 U/L (5-34); Albumin 3.2 g/dL (3.4-4.8); Alkaline Phosphatase 176 U/L (40-110); Anion Gap 13 mmol/L (10-20); BUN (Urea Nitrogen) 42 mg/dL (8.4-25.7); Bilirubin, Total 16.6 mg/dL (0.2-1.2); Calc. Creatinine Clearance 61 mL/min (70-130); Calcium 7.7 mg/dL (7.8-10.44); Carbon Dioxide 22 mmol/L (23-31); Chloride 105 mmol/L (98-107); Globulin 2.2 g/dL (2.4-3.5); Glucose 112 mg/dL (83-110); Potassium 3.1 mmol/L (3.5-5.1); Protein, Total 5.4 g/dL (5.8-8.1); Sodium 137 mmol/L (136-145)
[2021-09-03] MEDS: Levothyroxine 175 MCG TAB PO SCH (05:47)
[2021-09-03 07:32] LABS: Magnesium 2.1 mg/dL (1.6-2.6)
[2021-09-03] MEDS: Potassium Chloride 20 MEQ TAB PO SCH ×2 (09:39→11:56)
[2021-09-03] MEDS: Rifaximin 550 MG TAB PO SCH ×2 (09:39→21:12)
[2021-09-03] MEDS: Midodrine HCl 5 MG TAB PO SCH ×3 (09:39→21:12)
[2021-09-03] MEDS: Pantoprazole 40 MG GRANULES PACKET PO SCH (09:40)
[2021-09-03] MEDS: Heparin 5,000 UNITS/ML VIAL SC SCH ×3 (09:41→21:18)
[2021-09-03] MEDS ORDERED: MEROPENEM 1 GM/50 ML 1 GM in Premix Bag 1 BAG IVPB SCH (10:45)
[2021-09-03] MEDS: Vancomycin 1.5 GRAM/300 ML BAG 1.5 GM in Premix Bag 1 BAG IVPB SCH (11:56)
[2021-09-03] MEDS: MEROPENEM 1 GM/50 ML 1 GM in Premix Bag 1 BAG IVPB SCH (17:05)
[2021-09-04] MEDS: MEROPENEM 1 GM/50 ML 1 GM in Premix Bag 1 BAG IVPB SCH ×3 (02:08→17:41)
[2021-09-04] MEDS: Octreotide Acetate 500 MCG/ML VIAL SC SCH ×3 (02:14→17:39)
[2021-09-04] MEDS: Levothyroxine 175 MCG TAB PO SCH (05:47)
[2021-09-04 06:36] LABS: Hemoglobin 10.9 g/dL (14.0-18.0); Mean Corpuscular HGB CONC 34.3 g/dL (32.0-36.0); Mean Platelet Volume 7.5 fL (7.4-10.4); Platelet Count 65 thou/uL (130-400); RBC Distribution Width 15.6 % (11.5-14.5); Red Blood Cell (RBC) Count 3.12 mill/uL (4.70-6.10); White Blood Cell (WBC) Count 9.9 thou/uL (4.8-10.8)
[2021-09-04 06:54] LABS: ALT (SGPT) 65 U/L (8-55); AST (SGOT) 93 U/L (5-34); Albumin 2.7 g/dL (3.4-4.8); Alkaline Phosphatase 180 U/L (40-110); Anion Gap 12 mmol/L (10-20); BUN (Urea Nitrogen) 36 mg/dL (8.4-25.7); Bilirubin, Total 17.7 mg/dL (0.2-1.2); Calc. Creatinine Clearance 76 mL/min (70-130); Calcium 7.6 mg/dL (7.8-10.44); Carbon Dioxide 22 mmol/L (23-31); Chloride 108 mmol/L (98-107); Globulin 2.4 g/dL (2.4-3.5); Glucose 125 mg/dL (83-110); Potassium 3.7 mmol/L (3.5-5.1); Protein, Total 5.1 g/dL (5.8-8.1); Sodium 138 mmol/L (136-145)
[2021-09-04] MEDS: Pantoprazole 40 MG GRANULES PACKET PO SCH (08:16)
[2021-09-04] MEDS: Rifaximin 550 MG TAB PO SCH ×2 (08:16→21:14)
[2021-09-04] MEDS: Midodrine HCl 5 MG TAB PO SCH ×3 (08:16→21:14)
[2021-09-04] MEDS: Heparin 5,000 UNITS/ML VIAL SC SCH ×3 (08:17→21:12)
[2021-09-04] MEDS ORDERED: Iothalamate Meglumine 60% 50 ML VIAL FS ONE (10:57)
[2021-09-04] MEDS ORDERED: Indomethacin 50 MG SUPP ONE (10:58)
[2021-09-04] MEDS ORDERED: Fentanyl 100 MCG/2 ML VIAL ONE (11:14)
[2021-09-04] MEDS ORDERED: Ondansetron PF 4 MG/2 ML Vial ONE (11:34)
[2021-09-04] MEDS ORDERED: Rocuronium Bromide 10 MG/ML (10ML VIAL) ONE (11:34)
[2021-09-04] MEDS ORDERED: PROPOFOL 200 MG/20 ML VIAL ONE (11:34)
[2021-09-04] MEDS ORDERED: Lidocaine 1% PF 5 ML VIAL ONE (11:34)
[2021-09-04] MEDS ORDERED: Dexamethasone 20 MG/5 ML VIAL ONE (11:34)
[2021-09-04] MEDS ORDERED: PHENYLEPHRINE-NS 100 MCG/ML 10 ML SYRINGE ONE (11:34)
[2021-09-04] MEDS ORDERED: SUGAMMADEX SODIUM 200 MG/2 ML VIAL ONE (12:16)
[2021-09-04] MEDS: Vancomycin 1.5 GRAM/300 ML BAG 1.5 GM in Premix Bag 1 BAG IVPB SCH (15:04)
[2021-09-04] MEDS: Albumin 25% 25 GM/100 ML BOT IVPB SCH ×2 (15:04→21:14)
[2021-09-04 16:58] VITALS: BMI 31.8
[2021-09-05] MEDS: Octreotide Acetate 500 MCG/ML VIAL SC SCH ×3 (02:15→17:46)
[2021-09-05] MEDS: MEROPENEM 1 GM/50 ML 1 GM in Premix Bag 1 BAG IVPB SCH ×2 (02:16→08:57)
[2021-09-05 05:08] LABS: Prothrombin Time 23.1 sec (12.0-14.7)
[2021-09-05 05:13] LABS: Hemoglobin 11.7 g/dL (14.0-18.0); Mean Corpuscular HGB CONC 34.1 g/dL (32.0-36.0); Mean Corpuscular Hemoglobin 35.3 pg (27.0-31.0); Mean Platelet Volume 7.6 fL (7.4-10.4); Platelet Count 70 thou/uL (130-400); RBC Distribution Width 15.6 % (11.5-14.5); Red Blood Cell (RBC) Count 3.31 mill/uL (4.70-6.10)
[2021-09-05 05:20] LABS: ALT (SGPT) 68 U/L (8-55); AST (SGOT) 109 U/L (5-34); Albumin 3.1 g/dL (3.4-4.8); Alkaline Phosphatase 178 U/L (40-110); Anion Gap 17 mmol/L (10-20); BUN (Urea Nitrogen) 40 mg/dL (8.4-25.7); Bilirubin, Total 18.7 mg/dL (0.2-1.2); Calc. Creatinine Clearance 77 mL/min (70-130); Calcium 8.1 mg/dL (7.8-10.44); Carbon Dioxide 15 mmol/L (23-31); Chloride 106 mmol/L (98-107); Globulin 2.7 g/dL (2.4-3.5); Glucose 268 mg/dL (83-110); Potassium 4.5 mmol/L (3.5-5.1); Protein, Total 5.8 g/dL (5.8-8.1); Sodium 133 mmol/L (136-145)
[2021-09-05] MEDS: Levothyroxine 175 MCG TAB PO SCH (05:25)
[2021-09-05] MEDS: Albumin 25% 25 GM/100 ML BOT IVPB SCH ×3 (05:25→22:04)
[2021-09-05] MEDS: Midodrine HCl 5 MG TAB PO SCH ×3 (08:56→20:32)
[2021-09-05] MEDS: Rifaximin 550 MG TAB PO SCH ×2 (08:56→20:32)
[2021-09-05] MEDS: Pantoprazole 40 MG GRANULES PACKET PO SCH (08:57)
[2021-09-05] MEDS: Heparin 5,000 UNITS/ML VIAL SC SCH ×3 (08:58→20:35)
[2021-09-05 11:32] LABS: Vancomycin, Trough 24.3 ug/mL
[2021-09-05] MEDS ORDERED: Torsemide 10 MG TAB PO SCH (12:00)
[2021-09-05] MEDS ORDERED: Spironolactone 100 MG TAB PO SCH (12:00)
[2021-09-05] MEDS: Vancomycin 1.5 GRAM/300 ML BAG 1.5 GM in Premix Bag 1 BAG IVPB SCH (12:10)
[2021-09-05] MEDS: HumaLOG 300 UNITS/3 ML VIAL SC PRN ×2 (12:17→20:46)
[2021-09-05] MEDS ORDERED: Lidocaine 1% PF 5 ML VIAL ONE (12:55)
[2021-09-05] MEDS ORDERED: Sodium Bicarbonate 2.5 MEQ/5 ML VIAL ONE (12:55)
[2021-09-05] MEDS: Sodium Bicarbonate Tab 325 MG TAB PO SCH ×2 (14:31→20:32)
[2021-09-05] MEDS ORDERED: VANCOMYCIN 1.25 GM/250 ML BAG 1.25 GM in Premix Bag 1 BAG IVPB SCH (15:00)
[2021-09-05] MEDS ORDERED: Alogliptin 6.25 MG TAB PO SCH (18:00)
[2021-09-06] MEDS: Octreotide Acetate 500 MCG/ML VIAL SC SCH ×3 (03:11→17:50)
[2021-09-06 06:57] LABS: INR-International Normal Ratio 2.1; Prothrombin Time 24.3 sec (12.0-14.7)
[2021-09-06 07:00] LABS: Hemoglobin 11.6 g/dL (14.0-18.0); Mean Corpuscular HGB CONC 33.9 g/dL (32.0-36.0); Mean Corpuscular Hemoglobin 34.9 pg (27.0-31.0); Mean Platelet Volume 7.6 fL (7.4-10.4); Platelet Count 79 thou/uL (130-400); RBC Distribution Width 16.1 % (11.5-14.5); Red Blood Cell (RBC) Count 3.32 mill/uL (4.70-6.10); White Blood Cell (WBC) Count 13.1 thou/uL (4.8-10.8)
[2021-09-06 07:21] LABS: ALT (SGPT) 69 U/L (8-55); AST (SGOT) 110 U/L (5-34); Albumin 3.1 g/dL (3.4-4.8); Alkaline Phosphatase 177 U/L (40-110); Anion Gap 15 mmol/L (10-20); BUN (Urea Nitrogen) 50 mg/dL (8.4-25.7); Bilirubin, Total 15.9 mg/dL (0.2-1.2); Calc. Creatinine Clearance 43 mL/min (70-130); Calcium 8.1 mg/dL (7.8-10.44); Carbon Dioxide 20 mmol/L (23-31); Chloride 107 mmol/L (98-107); Globulin 2.1 g/dL (2.4-3.5); Glucose 114 mg/dL (83-110); Potassium 3.8 mmol/L (3.5-5.1); Protein, Total 5.2 g/dL (5.8-8.1); Sodium 138 mmol/L (136-145)
[2021-09-06] MEDS: Levothyroxine 175 MCG TAB PO SCH (07:51)
[2021-09-06] MEDS: Alogliptin 6.25 MG TAB PO SCH (08:37)
[2021-09-06] MEDS: Albumin 25% 25 GM/100 ML BOT IVPB SCH ×2 (08:37→15:30)
[2021-09-06] MEDS: Sodium Bicarbonate Tab 325 MG TAB PO SCH ×3 (08:38→21:43)
[2021-09-06] MEDS: Midodrine HCl 5 MG TAB PO SCH ×3 (08:38→21:42)
[2021-09-06] MEDS: Rifaximin 550 MG TAB PO SCH ×2 (08:38→21:42)
[2021-09-06] MEDS: Heparin 5,000 UNITS/ML VIAL SC SCH ×3 (08:38→21:43)
[2021-09-06] MEDS: Pantoprazole 40 MG GRANULES PACKET PO SCH (08:39)
[2021-09-06 08:54] LABS: RBC Count-Automated (BF) 420 /cu.mm; WBC/Nucleated-Auto (BF) 310 /cu.mm
[2021-09-06 10:58] LABS: BF Color Yellow; Body Fluid Source Ascites Body Fluid; Clarity Hazy (Clear); Tube # EDTA
[2021-09-06] MEDS: cefTRIAXone\\ROCEPHIN 1 GM in Sodium Chloride 0.9% 100 ML IVPB SCH (11:02)
[2021-09-06 11:12] LABS: BF Segmented Neutrophils 8 %; Cell Count Non Hematic 72 %; Lymphocytes 20 %
[2021-09-07] MEDS: Albumin 25% 25 GM/100 ML BOT IVPB SCH ×3 (00:21→17:57)
[2021-09-07] MEDS: Octreotide Acetate 500 MCG/ML VIAL SC SCH ×3 (02:08→17:57)
[2021-09-07] MEDS: Levothyroxine 175 MCG TAB PO SCH (06:15)
[2021-09-07 07:42] LABS: Hemoglobin 11.4 g/dL (14.0-18.0); Mean Corpuscular HGB CONC 33.4 g/dL (32.0-36.0); Mean Corpuscular Hemoglobin 34.9 pg (27.0-31.0); Mean Platelet Volume 7.9 fL (7.4-10.4); Platelet Count 62 thou/uL (130-400); Red Blood Cell (RBC) Count 3.27 mill/uL (4.70-6.10); White Blood Cell (WBC) Count 8.9 thou/uL (4.8-10.8)
[2021-09-07 07:50] LABS: Bilirubin, Direct 8.2 mg/dL (0.1-0.3); Protein, Total 5.1 g/dL (5.8-8.1)
[2021-09-07 07:51] LABS: ALT (SGPT) 61 U/L (8-55); AST (SGOT) 91 U/L (5-34); Albumin 3.2 g/dL (3.4-4.8); Alkaline Phosphatase 167 U/L (40-110)
[2021-09-07 07:53] LABS: ALT (SGPT) 63 U/L (8-55); AST (SGOT) 95 U/L (5-34); Albumin 3.2 g/dL (3.4-4.8); Alkaline Phosphatase 169 U/L (40-110); Anion Gap 15 mmol/L (10-20); BUN (Urea Nitrogen) 48 mg/dL (8.4-25.7); Bilirubin, Total 12.9 mg/dL (0.2-1.2); Calc. Creatinine Clearance 47 mL/min (70-130); Calcium 8.5 mg/dL (7.8-10.44); Carbon Dioxide 21 mmol/L (23-31); Chloride 110 mmol/L (98-107); Globulin 1.9 g/dL (2.4-3.5); Glucose 141 mg/dL (83-110); Potassium 3.8 mmol/L (3.5-5.1); Protein, Total 5.1 g/dL (5.8-8.1); Sodium 142 mmol/L (136-145)
[2021-09-07] MEDS: Midodrine HCl 5 MG TAB PO SCH ×3 (09:07→22:58)
[2021-09-07] MEDS: Alogliptin 6.25 MG TAB PO SCH (09:08)
[2021-09-07] MEDS: Sodium Bicarbonate Tab 325 MG TAB PO SCH ×3 (09:08→22:58)
[2021-09-07] MEDS: Rifaximin 550 MG TAB PO SCH ×2 (09:08→22:58)
[2021-09-07] MEDS: Heparin 5,000 UNITS/ML VIAL SC SCH ×3 (09:10→22:59)
[2021-09-07] MEDS: Pantoprazole 40 MG GRANULES PACKET PO SCH (09:10)
[2021-09-07] MEDS: cefTRIAXone\\ROCEPHIN 1 GM in Sodium Chloride 0.9% 100 ML IVPB SCH (09:31)
[2021-09-07] MEDS: HumaLOG 300 UNITS/3 ML VIAL SC PRN (13:39)
[2021-09-08] MEDS: Albumin 25% 25 GM/100 ML BOT IVPB SCH ×3 (00:57→17:08)
[2021-09-08] MEDS: Octreotide Acetate 500 MCG/ML VIAL SC SCH ×3 (03:15→17:07)
[2021-09-08] MEDS: Levothyroxine 175 MCG TAB PO SCH (06:44)
[2021-09-08 07:52] LABS: ALT (SGPT) 53 U/L (8-55); AST (SGOT) 81 U/L (5-34); Albumin 3.4 g/dL (3.4-4.8); Alkaline Phosphatase 159 U/L (40-110); Anion Gap 12 mmol/L (10-20); BUN (Urea Nitrogen) 41 mg/dL (8.4-25.7); Calc. Creatinine Clearance 57 mL/min (70-130); Calcium 8.4 mg/dL (7.8-10.44); Carbon Dioxide 23 mmol/L (23-31); Chloride 110 mmol/L (98-107); Globulin 1.7 g/dL (2.4-3.5); Glucose 118 mg/dL (83-110); Iron 65 ug/dL (65-175); Potassium 3.7 mmol/L (3.5-5.1); Protein, Total 5.1 g/dL (5.8-8.1); Sodium 141 mmol/L (136-145)
[2021-09-08 07:53] LABS: Iron Binding Capacity, Total 48 mcg/dL (261-462)
[2021-09-08] MEDS: Midodrine HCl 5 MG TAB PO SCH ×3 (09:24→20:20)
[2021-09-08] MEDS: Alogliptin 6.25 MG TAB PO SCH (09:24)
[2021-09-08] MEDS: Rifaximin 550 MG TAB PO SCH ×2 (09:24→20:20)
[2021-09-08] MEDS: Pantoprazole 40 MG GRANULES PACKET PO SCH (09:24)
[2021-09-08] MEDS: Heparin 5,000 UNITS/ML VIAL SC SCH (09:24)
[2021-09-08] MEDS: Sodium Bicarbonate Tab 325 MG TAB PO SCH ×3 (09:24→20:20)
[2021-09-08] MEDS: cefTRIAXone\\ROCEPHIN 1 GM in Sodium Chloride 0.9% 100 ML IVPB SCH (09:55)
[2021-09-08] MEDS: HumaLOG 300 UNITS/3 ML VIAL SC PRN (12:43)
[2021-09-08 15:41] LABS: SARS-CoV-2 PCR by NAA Not Detected (NotDetected)
[2021-09-09] MEDS: Albumin 25% 25 GM/100 ML BOT IVPB SCH ×2 (01:53→08:48)
[2021-09-09] MEDS: Octreotide Acetate 500 MCG/ML VIAL SC SCH (02:07)
[2021-09-09] MEDS: Levothyroxine 175 MCG TAB PO SCH (05:04)
[2021-09-09] MEDS: HumaLOG 300 UNITS/3 ML VIAL SC PRN ×3 (06:02→17:22)
[2021-09-09 08:08] LABS: INR-International Normal Ratio 2.4; Prothrombin Time 26.6 sec (12.0-14.7)
[2021-09-09 08:12] LABS: ALT (SGPT) 47 U/L (8-55); AST (SGOT) 71 U/L (5-34); Albumin 3.5 g/dL (3.4-4.8); Alkaline Phosphatase 147 U/L (40-110); Anion Gap 12 mmol/L (10-20); BUN (Urea Nitrogen) 42 mg/dL (8.4-25.7); Bilirubin, Total 12.9 mg/dL (0.2-1.2); Calc. Creatinine Clearance 62 mL/min (70-130); Calcium 8.6 mg/dL (7.8-10.44); Carbon Dioxide 23 mmol/L (23-31); Chloride 110 mmol/L (98-107); Globulin 1.6 g/dL (2.4-3.5); Glucose 152 mg/dL (83-110); Potassium 3.8 mmol/L (3.5-5.1); Protein, Total 5.1 g/dL (5.8-8.1); Sodium 141 mmol/L (136-145)
[2021-09-09] MEDS: Alogliptin 6.25 MG TAB PO SCH (08:48)
[2021-09-09] MEDS: Rifaximin 550 MG TAB PO SCH ×2 (08:48→20:44)
[2021-09-09] MEDS: Sodium Bicarbonate Tab 325 MG TAB PO SCH ×3 (08:49→20:44)
[2021-09-09] MEDS: Pantoprazole 40 MG GRANULES PACKET PO SCH (08:49)
[2021-09-09] MEDS: Midodrine HCl 5 MG TAB PO SCH ×3 (09:05→20:44)
[2021-09-09] MEDS: cefTRIAXone\\ROCEPHIN 1 GM in Sodium Chloride 0.9% 100 ML IVPB SCH (09:09)
[2021-09-10] MEDS: HumaLOG 300 UNITS/3 ML VIAL SC PRN ×2 (05:15→13:09)
[2021-09-10] MEDS: Levothyroxine 175 MCG TAB PO SCH (05:16)
[2021-09-10 07:11] LABS: ALT (SGPT) 47 U/L (8-55); AST (SGOT) 69 U/L (5-34); Albumin 3.4 g/dL (3.4-4.8); Alkaline Phosphatase 149 U/L (40-110); Anion Gap 11 mmol/L (10-20); BUN (Urea Nitrogen) 42 mg/dL (8.4-25.7); Bilirubin, Total 13.3 mg/dL (0.2-1.2); Calc. Creatinine Clearance 64 mL/min (70-130); Calcium 8.4 mg/dL (7.8-10.44); Carbon Dioxide 24 mmol/L (23-31); Chloride 107 mmol/L (98-107); Globulin 1.8 g/dL (2.4-3.5); Glucose 138 mg/dL (83-110); Potassium 3.6 mmol/L (3.5-5.1); Protein, Total 5.2 g/dL (5.8-8.1); Sodium 138 mmol/L (136-145)
[2021-09-10] MEDS: Midodrine HCl 5 MG TAB PO SCH ×3 (09:11→20:33)
[2021-09-10] MEDS: Pantoprazole 40 MG GRANULES PACKET PO SCH (09:12)
[2021-09-10] MEDS: Rifaximin 550 MG TAB PO SCH ×2 (09:12→20:33)
[2021-09-10] MEDS: Sodium Bicarbonate Tab 325 MG TAB PO SCH ×3 (09:12→20:33)
[2021-09-10] MEDS: Alogliptin 6.25 MG TAB PO SCH (09:12)
[2021-09-10] MEDS: cefTRIAXone\\ROCEPHIN 1 GM in Sodium Chloride 0.9% 100 ML IVPB SCH (09:24)
[2021-09-11] MEDS: Levothyroxine 175 MCG TAB PO SCH (05:13)
[2021-09-11 06:33] LABS: Hemoglobin 8.5 g/dL (14.0-18.0); Mean Corpuscular HGB CONC 33.6 g/dL (32.0-36.0); Mean Corpuscular Hemoglobin 35.8 pg (27.0-31.0); Mean Platelet Volume 7.5 fL (7.4-10.4); Platelet Count 64 thou/uL (130-400); RBC Distribution Width 15.5 % (11.5-14.5); Red Blood Cell (RBC) Count 2.38 mill/uL (4.70-6.10); White Blood Cell (WBC) Count 7.6 thou/uL (4.8-10.8)
[2021-09-11 06:52] LABS: ALT (SGPT) 48 U/L (8-55); AST (SGOT) 80 U/L (5-34); Albumin 3.2 g/dL (3.4-4.8); Alkaline Phosphatase 153 U/L (40-110); Anion Gap 10 mmol/L (10-20); BUN (Urea Nitrogen) 49 mg/dL (8.4-25.7); Bilirubin, Total 13.4 mg/dL (0.2-1.2); Calc. Creatinine Clearance 61 mL/min (70-130); Calcium 8.3 mg/dL (7.8-10.44); Carbon Dioxide 24 mmol/L (23-31); Chloride 108 mmol/L (98-107); Glucose 128 mg/dL (83-110); Potassium 4.1 mmol/L (3.5-5.1); Protein, Total 5.2 g/dL (5.8-8.1); Sodium 138 mmol/L (136-145)
[2021-09-11] MEDS ORDERED: Spironolactone 100 MG TAB PO SCH (08:15)
[2021-09-11] MEDS: Midodrine HCl 5 MG TAB PO SCH ×3 (08:46→20:38)
[2021-09-11] MEDS: Alogliptin 6.25 MG TAB PO SCH (08:46)
[2021-09-11] MEDS: Albumin 25% 25 GM/100 ML BOT IVPB SCH ×3 (08:46→20:39)
[2021-09-11] MEDS: Sodium Bicarbonate Tab 325 MG TAB PO SCH ×3 (08:47→20:37)
[2021-09-11] MEDS: Rifaximin 550 MG TAB PO SCH ×2 (08:47→20:39)
[2021-09-11] MEDS: cefTRIAXone\\ROCEPHIN 1 GM in Sodium Chloride 0.9% 100 ML IVPB SCH (09:59)
[2021-09-11] MEDS: HumaLOG 300 UNITS/3 ML VIAL SC PRN (12:30)
[2021-09-12] MEDS: Levothyroxine 175 MCG TAB PO SCH (05:25)
[2021-09-12] MEDS: Midodrine HCl 5 MG TAB PO SCH ×2 (08:16→15:05)
[2021-09-12] MEDS: Sodium Bicarbonate Tab 325 MG TAB PO SCH ×2 (08:16→15:05)
[2021-09-12] MEDS: Rifaximin 550 MG TAB PO SCH (08:16)
[2021-09-12] MEDS: Alogliptin 6.25 MG TAB PO SCH (08:16)
[2021-09-12 09:00] LABS: Hemoglobin 8.7 g/dL (14.0-18.0); Mean Corpuscular HGB CONC 34.9 g/dL (32.0-36.0); Mean Corpuscular Hemoglobin 37.1 pg (27.0-31.0); Mean Platelet Volume 7.8 fL (7.4-10.4); Platelet Count 73 thou/uL (130-400); RBC Distribution Width 15.5 % (11.5-14.5); Red Blood Cell (RBC) Count 2.34 mill/uL (4.70-6.10)
[2021-09-12 09:19] LABS: ALT (SGPT) 46 U/L (8-55); AST (SGOT) 77 U/L (5-34); Albumin 3.7 g/dL (3.4-4.8); Alkaline Phosphatase 148 U/L (40-110); Anion Gap 12 mmol/L (10-20); BUN (Urea Nitrogen) 45 mg/dL (8.4-25.7); Bilirubin, Total 13.4 mg/dL (0.2-1.2); Calc. Creatinine Clearance 60 mL/min (70-130); Calcium 8.6 mg/dL (7.8-10.44); Carbon Dioxide 23 mmol/L (23-31); Chloride 108 mmol/L (98-107); Glucose 154 mg/dL (83-110); Potassium 3.8 mmol/L (3.5-5.1); Protein, Total 5.7 g/dL (5.8-8.1); Sodium 139 mmol/L (136-145)
[2021-09-12 09:29] VITALS: TEMP 98
[2021-09-12] MEDS: HumaLOG 300 UNITS/3 ML VIAL SC PRN (12:11)
[2021-09-12 13:46] VITALS: BP 112/62
[2021-09-12] MEDS ORDERED: Spironolactone 100 MG TAB PO SCH (16:00)
[2021-09-13] MEDS ORDERED: Spironolactone 100 MG TAB PO SCH (08:00)
== END 2021-09-12 16:28 | disposition home or self-care (01) | DRG 871 ==
LOC: ERS 20:28 → IMCU/EMU 09-01 00:14 → 2NO 09-02 10:00 → T4-A 09-05 15:02
PROVIDERS: ADMIT Internal Medicine; ATTEND Family Medicine
PROC: 0W9G3ZZ Drainage of Peritoneal Cavity, Percutaneous Approach (ICD-10-PCS; 2021-09-01)
PROC: 0FC98ZZ Extirpation of Matter from Common Bile Duct, Via Natural or Artificial Opening Endoscopic (ICD-10-PCS; principal; 2021-09-04)
PROC: 0W9G3ZZ Drainage of Peritoneal Cavity, Percutaneous Approach (ICD-10-PCS; 2021-09-05)
DX: A41.9 Sepsis, unspecified organism (principal); K65.2 Spontaneous bacterial peritonitis; G92.8 Other toxic encephalopathy; K76.7 Hepatorenal syndrome; K83.1 Obstruction of bile duct; N17.9 Acute kidney failure, unspecified; J98.11 Atelectasis; R18.8 Other ascites; L03.116 Cellulitis of left lower limb; K75.81 Nonalcoholic steatohepatitis (NASH); R65.20 Severe sepsis without septic shock; K74.60 Unspecified cirrhosis of liver; Z20.822 Contact with and (suspected) exposure to COVID-19; N18.30 Chronic kidney disease, stage 3 unspecified; E11.22 Type 2 diabetes mellitus with diabetic chronic kidney disease; I12.9 Hypertensive chronic kidney disease with stage 1 through stage 4 chronic kidney disease, or unspecified chronic kidney disease; E03.9 Hypothyroidism, unspecified; K83.8 Other specified diseases of biliary tract; E11.621 Type 2 diabetes mellitus with foot ulcer; L97.529 Non-pressure chronic ulcer of other part of left foot with unspecified severity; D64.9 Anemia, unspecified; K72.90 Hepatic failure, unspecified without coma; D69.6 Thrombocytopenia, unspecified; Z79.899 Other long term (current) drug therapy; Z79.890 Hormone replacement therapy; Z88.8 Allergy status to other drugs, medicaments and biological substances; Z87.891 Personal history of nicotine dependence
CPT/HCPCS: 36415; 36416; 49083; 71045; 74181; 74330; 80053; 80202; 81003; 82140; 82248; 82306; 82570; 82728; 82746; 83540; 83550; 83605; 83690; 83735; 84156; 84300; 84443; 84484; 84540; 85025; 85027; 85060; 85610; 85730; 86850; 86900; 86901; 87040; 87070; 87205; 89051; 93005; 96365; 96367; J0696; J1100; J1644; J1815; J2185; J2354; J2405; J2704; J3010; J3370; J3490; J7050; J7070; P9047; Q9961-U8; U0002; U0003; U0005

== ENCOUNTER 2021-09-30 12:23 | Inpatient (IN) | payer MEDICARE ==
[2021-09-30 13:08] LABS: #Eosinphils 0.3 thou/uL (0.0-0.7); #Lymphocytes 1.1 thou/uL (1.20-3.40); #Monocytes 0.5 thou/uL (0.11-0.59); #Neutrophils 4.7 thou/uL (1.40-6.50); %Basophils 0.4 % (0.0-1.0); %Lymphocytes 16.8 % (21.0-51.0); %Monocytes 7.6 % (0.0-10.0); %Neutrophils 71.2 % (42.0-75.0); Hemoglobin 11.8 g/dL (14.0-18.0); Mean Corpuscular HGB CONC 34.7 g/dL (32.0-36.0); Mean Corpuscular Hemoglobin 35.8 pg (27.0-31.0); Mean Platelet Volume 7.1 fL (7.4-10.4); Platelet Count 110 thou/uL (130-400); RBC Distribution Width 13.5 % (11.5-14.5); White Blood Cell (WBC) Count 6.6 thou/uL (4.8-10.8)
[2021-09-30 13:28] LABS: ALT (SGPT) 40 U/L (8-55); AST (SGOT) 65 U/L (5-34); Alkaline Phosphatase 236 U/L (40-110); Anion Gap 15 mmol/L (10-20); BUN (Urea Nitrogen) 14 mg/dL (8.4-25.7); Bilirubin, Total 9.2 mg/dL (0.2-1.2); Calc. Creatinine Clearance 0 mL/min (70-130); Calcium 8.7 mg/dL (7.8-10.44); Carbon Dioxide 20 mmol/L (23-31); Chloride 110 mmol/L (98-107); Globulin 3.7 g/dL (2.4-3.5); Glucose 119 mg/dL (83-110); Lipase 44 U/L (8-78); Potassium 3.5 mmol/L (3.5-5.1); Protein, Total 6.7 g/dL (5.8-8.1); Sodium 141 mmol/L (136-145)
[2021-09-30 14:22] LABS: INR-International Normal Ratio 1.7; Prothrombin Time 20.4 sec (12.0-14.7)
[2021-09-30 14:23] LABS: PTT 38.2 sec (22.9-36.1)
[2021-09-30 14:43] LABS: Bilirubin 1+ (Negative); Blood, Urine Negative (Negative); Clarity Clear (Clear); Glucose, Urine (Dipstick) Normal (Negative); Ketone, Urine Negative (Negative); Leukocyte Negative Leu/uL (Negative); Nitrite Negative (Negative); Protein, Urine (Dipstick) 20 mg/dL (Neg-Trace); Specific Gravity, Urine 1.026 (1.002-1.036); Urobilinogen 6 mg/dL (Less than 2); pH, Urine 6.5 (5.0-9.0)
[2021-09-30] MEDS ORDERED: Piperacillin/Tazobactam 3.375 GM VIAL ONE (15:07)
[2021-09-30] MEDS ORDERED: Ondansetron PF 4 MG/2 ML Vial IVP PRN (16:57)
[2021-09-30] MEDS ORDERED: Ondansetron ODT 4 MG TAB PO PRN (16:57)
[2021-09-30] MEDS ORDERED: cefTRIAXone Sodium 2,000 MG in Syringe 0 ML IVPB SCH (17:00)
[2021-09-30] MEDS ORDERED: Dextrose 5% in Water 1,000 ML IV PRN (17:21)
[2021-09-30] MEDS ORDERED: Dextrose 50% Abboject 50 ML SYRINGE SLOW IVP PRN (17:21)
[2021-09-30 17:37] LABS: Lactic Acid 2.7 mmol/L (0.5-2.2)
[2021-09-30] MEDS ORDERED: Furosemide 20 MG/2 ML VIAL SLOW IVP SCH (18:00)
[2021-09-30] MEDS: Albumin 25% 25 GM/100 ML BOT IVPB SCH (18:15)
[2021-09-30] MEDS: cefTRIAXone\\ROCEPHIN 2 GM in Sodium Chloride 0.9% 100 ML IVPB SCH (18:15)
[2021-09-30] MEDS: Midodrine HCl 5 MG TAB PO SCH (21:26)
[2021-10-01] MEDS: Albumin 25% 25 GM/100 ML BOT IVPB SCH ×3 (00:22→12:34)
[2021-10-01 04:58] LABS: #Eosinphils 0.3 thou/uL (0.0-0.7); #Lymphocytes 1.2 thou/uL (1.20-3.40); #Monocytes 0.5 thou/uL (0.11-0.59); #Neutrophils 3.6 thou/uL (1.40-6.50); %Basophils 0.5 % (0.0-1.0); %Eosinophils 5.2 % (0.0-10.0); %Lymphocytes 20.9 % (21.0-51.0); %Monocytes 9.1 % (0.0-10.0); %Neutrophils 64.4 % (42.0-75.0); Hemoglobin 9.7 g/dL (14.0-18.0); Mean Corpuscular HGB CONC 34.4 g/dL (32.0-36.0); Mean Corpuscular Hemoglobin 35.6 pg (27.0-31.0); Mean Platelet Volume 7.1 fL (7.4-10.4); Platelet Count 83 thou/uL (130-400); RBC Distribution Width 13.4 % (11.5-14.5); Red Blood Cell (RBC) Count 2.73 mill/uL (4.70-6.10); White Blood Cell (WBC) Count 5.7 thou/uL (4.8-10.8)
[2021-10-01 05:08] LABS: ALT (SGPT) 32 U/L (8-55); AST (SGOT) 51 U/L (5-34); Albumin 3.3 g/dL (3.4-4.8); Alkaline Phosphatase 201 U/L (40-110); Anion Gap 14 mmol/L (10-20); BUN (Urea Nitrogen) 17 mg/dL (8.4-25.7); Bilirubin, Total 7.3 mg/dL (0.2-1.2); Calc. Creatinine Clearance 72 mL/min (70-130); Calcium 8.9 mg/dL (7.8-10.44); Carbon Dioxide 22 mmol/L (23-31); Chloride 110 mmol/L (98-107); Globulin 3.1 g/dL (2.4-3.5); Glucose 186 mg/dL (83-110); Potassium 3.7 mmol/L (3.5-5.1); Protein, Total 6.4 g/dL (5.8-8.1); Sodium 142 mmol/L (136-145)
[2021-10-01] MEDS: Levothyroxine 175 MCG TAB PO SCH (05:58)
[2021-10-01] MEDS: Insulin Regular 300 UNITS/3 ML VIAL SC PRN (06:13)
[2021-10-01] MEDS: Midodrine HCl 5 MG TAB PO SCH ×3 (09:09→21:24)
[2021-10-01] MEDS ORDERED: Lidocaine 1% PF 5 ML VIAL ONE (09:53)
[2021-10-01] MEDS ORDERED: Sodium Bicarbonate 2.5 MEQ/5 ML VIAL ONE (09:53)
[2021-10-01] MEDS ORDERED: Sodium Chloride 0.9% 10 ML ONE (09:54)
[2021-10-01 11:51] LABS: Fluid, Protein 1.9 g/dL (Not Available)
[2021-10-01 14:12] LABS: SARS-CoV-2 PCR by NAA Not Detected (NotDetected)
[2021-10-01 15:37] LABS: RBC Count-Automated (BF) 9 /cu.mm; WBC/Nucleated-Auto (BF) 246 /cu.mm
[2021-10-01 15:38] LABS: BF Color Yellow; Body Fluid Source Ascites Body Fluid; Clarity Clear (Clear); Tube # EDTA
[2021-10-01 16:03] LABS: BF Segmented Neutrophils 26 %; Cell Count Non Hematic 56 %; Lymphocytes 18 %
[2021-10-01] MEDS: cefTRIAXone\\ROCEPHIN 2 GM in Sodium Chloride 0.9% 100 ML IVPB SCH (17:23)
[2021-10-02 05:21] LABS: #Eosinphils 0.3 thou/uL (0.0-0.7); #Lymphocytes 1.3 thou/uL (1.20-3.40); #Monocytes 0.6 thou/uL (0.11-0.59); #Neutrophils 3.8 thou/uL (1.40-6.50); %Basophils 0.5 % (0.0-1.0); %Eosinophils 4.8 % (0.0-10.0); %Lymphocytes 21.5 % (21.0-51.0); %Monocytes 9.4 % (0.0-10.0); %Neutrophils 63.9 % (42.0-75.0); Hemoglobin 9.8 g/dL (14.0-18.0); Mean Corpuscular HGB CONC 34.5 g/dL (32.0-36.0); Mean Corpuscular Hemoglobin 35.9 pg (27.0-31.0); Mean Platelet Volume 7.7 fL (7.4-10.4); Platelet Count 93 thou/uL (130-400); RBC Distribution Width 13.4 % (11.5-14.5); Red Blood Cell (RBC) Count 2.72 mill/uL (4.70-6.10)
[2021-10-02 05:35] LABS: ALT (SGPT) 26 U/L (8-55); AST (SGOT) 45 U/L (5-34); Albumin 3.2 g/dL (3.4-4.8); Alkaline Phosphatase 168 U/L (40-110); Anion Gap 14 mmol/L (10-20); BUN (Urea Nitrogen) 16 mg/dL (8.4-25.7); Bilirubin, Total 6.3 mg/dL (0.2-1.2); Calc. Creatinine Clearance 78 mL/min (70-130); Calcium 8.6 mg/dL (7.8-10.44); Carbon Dioxide 21 mmol/L (23-31); Chloride 110 mmol/L (98-107); Globulin 2.8 g/dL (2.4-3.5); Glucose 121 mg/dL (83-110); Potassium 3.4 mmol/L (3.5-5.1); Sodium 142 mmol/L (136-145)
[2021-10-02] MEDS: Levothyroxine 175 MCG TAB PO SCH (05:43)
[2021-10-02] MEDS: Midodrine HCl 5 MG TAB PO SCH ×3 (09:16→21:22)
[2021-10-02] MEDS: Tamsulosin HCl 0.4 MG CAP PO SCH (09:16)
[2021-10-02] MEDS: Lantus 1000 UNITS/10 ML VIAL SC SCH (09:17)
[2021-10-02 11:13] LABS: Albumin, Fluid 1.1 g/dL (Not Estab.)
[2021-10-02] MEDS: Insulin Regular 300 UNITS/3 ML VIAL SC PRN (11:18)
[2021-10-02] MEDS ORDERED: Potassium Chloride 20 MEQ TAB PO SCH (12:45)
[2021-10-02 14:19] VITALS: BMI 29.5
[2021-10-02] MEDS: cefTRIAXone\\ROCEPHIN 2 GM in Sodium Chloride 0.9% 100 ML IVPB SCH (18:02)
[2021-10-03 05:03] LABS: #Eosinphils 0.3 thou/uL (0.0-0.7); #Lymphocytes 1.4 thou/uL (1.20-3.40); #Monocytes 0.4 thou/uL (0.11-0.59); #Neutrophils 3.9 thou/uL (1.40-6.50); %Basophils 0.7 % (0.0-1.0); %Lymphocytes 22.8 % (21.0-51.0); %Monocytes 6.9 % (0.0-10.0); %Neutrophils 64.7 % (42.0-75.0); Hemoglobin 9.4 g/dL (14.0-18.0); Mean Corpuscular HGB CONC 35.4 g/dL (32.0-36.0); Mean Corpuscular Hemoglobin 36.5 pg (27.0-31.0); Mean Platelet Volume 6.9 fL (7.4-10.4); Platelet Count 79 thou/uL (130-400); RBC Distribution Width 13.5 % (11.5-14.5); Red Blood Cell (RBC) Count 2.59 mill/uL (4.70-6.10); White Blood Cell (WBC) Count 6.1 thou/uL (4.8-10.8)
[2021-10-03 05:24] LABS: ALT (SGPT) 31 U/L (8-55); AST (SGOT) 57 U/L (5-34); Alkaline Phosphatase 200 U/L (40-110); Anion Gap 11 mmol/L (10-20); BUN (Urea Nitrogen) 16 mg/dL (8.4-25.7); Calc. Creatinine Clearance 67 mL/min (70-130); Calcium 8.2 mg/dL (7.8-10.44); Carbon Dioxide 23 mmol/L (23-31); Chloride 110 mmol/L (98-107); Globulin 2.8 g/dL (2.4-3.5); Glucose 117 mg/dL (83-110); Potassium 3.6 mmol/L (3.5-5.1); Protein, Total 5.8 g/dL (5.8-8.1); Sodium 140 mmol/L (136-145)
[2021-10-03] MEDS: Levothyroxine 175 MCG TAB PO SCH (05:37)
[2021-10-03 07:34] VITALS: BP 128/62; TEMP 99.1
[2021-10-03] MEDS: Midodrine HCl 5 MG TAB PO SCH (08:48)
[2021-10-03] MEDS: Lantus 1000 UNITS/10 ML VIAL SC SCH (08:48)
[2021-10-03] MEDS: Tamsulosin HCl 0.4 MG CAP PO SCH (08:48)
[2021-10-03 12:44] LABS: ANA Symphony (Qualitative) Negative (Negative); ANA Symphony (Quantitative) 0.6 Ratio (< 0.7 Negative); EliA Vaculitis New Method **** NEW METHOD ****; dsDNA IgG Antibody 3.3 IU/mL (<10 Negative)
== END 2021-10-03 11:30 | disposition home or self-care (01) | DRG 433 ==
LOC: ERS 12:23 → 2NO 15:58
PROVIDERS: ADMIT Internal Medicine; ATTEND Internal Medicine
PROC: 0W9G3ZZ Drainage of Peritoneal Cavity, Percutaneous Approach (ICD-10-PCS; principal; 2021-10-01)
DX: K74.69 Other cirrhosis of liver (principal); R18.8 Other ascites; Z66 Do not resuscitate; Z20.822 Contact with and (suspected) exposure to COVID-19; E11.9 Type 2 diabetes mellitus without complications; D64.9 Anemia, unspecified; E03.9 Hypothyroidism, unspecified; K72.10 Chronic hepatic failure without coma; K75.81 Nonalcoholic steatohepatitis (NASH); K72.90 Hepatic failure, unspecified without coma; Z88.8 Allergy status to other drugs, medicaments and biological substances; Z79.890 Hormone replacement therapy; Z79.899 Other long term (current) drug therapy; Z87.891 Personal history of nicotine dependence
CPT/HCPCS: 36415; 36416; 49083; 76705; 80053; 81003; 82042; 82140; 82150; 82390; 82550; 83516; 83605; 83615; 83690; 84157; 84484; 85025; 85060; 85610; 85730; 86038; 86225; 87040; 87070; 87086; 87149; 87205; 89051; 93005; J0696; J1815; J1940; J2543; J3490; P9047; U0003; U0005

== ENCOUNTER 2021-10-16 12:59 | Inpatient (IN) | payer MEDICARE ==
[2021-10-16 14:17] LABS: #Eosinphils 0.1 thou/uL (0.0-0.7); #Lymphocytes 1.1 thou/uL (1.20-3.40); #Monocytes 0.6 thou/uL (0.11-0.59); #Neutrophils 15.1 thou/uL (1.40-6.50); %Eosinophils 0.5 % (0.0-10.0); %Lymphocytes 6.5 % (21.0-51.0); %Monocytes 3.5 % (0.0-10.0); %Neutrophils 89.5 % (42.0-75.0); Hemoglobin 13.4 g/dL (14.0-18.0); Mean Corpuscular HGB CONC 35.2 g/dL (32.0-36.0); Mean Corpuscular Hemoglobin 36.2 pg (27.0-31.0); Mean Platelet Volume 7.3 fL (7.4-10.4); Platelet Count 87 thou/uL (130-400); RBC Distribution Width 13.4 % (11.5-14.5); Red Blood Cell (RBC) Count 3.69 mill/uL (4.70-6.10); White Blood Cell (WBC) Count 16.8 thou/uL (4.8-10.8)
[2021-10-16 14:22] LABS: Bilirubin Negative (Negative); Blood, Urine Negative (Negative); Clarity Clear (Clear); Glucose, Urine (Dipstick) Normal (Negative); Ketone, Urine Trace mg/dL (Negative); Leukocyte Negative Leu/uL (Negative); Nitrite Negative (Negative); Protein, Urine (Dipstick) 20 mg/dL (Neg-Trace); Specific Gravity, Urine 1.027 (1.002-1.036); Urobilinogen Normal mg/dL (Less than 2); pH, Urine 5.5 (5.0-9.0)
[2021-10-16 14:29] LABS: Amphetamine Not Detected (NotDetected); Barbiturates Screen Not Detected (NotDetected); Benzodiazepine Screen Not Detected (NotDetected); Cocaine Metabolite Screen Not Detected (NotDetected); Methadone Not Detected (NotDetected); Methamphetamine Not Detected (NotDetected); Opiate Screen Not Detected (NotDetected); Oxycodone Screen Not Detected (NotDetected); Phencyclidine (PCP) Not Detected (NotDetected); THC/Cannabinoid Screen Not Detected (NotDetected); Tricyclic Screen Not Detected (NotDetected)
[2021-10-16] MEDS ORDERED: Cefepime 2 GM VIAL ONE (14:29)
[2021-10-16 14:52] LABS: Glucose 132 mg/dL (83-110)
[2021-10-16 14:58] LABS: ALT (SGPT) 46 U/L (8-55); AST (SGOT) 66 U/L (5-34); Acetaminophen Less than 6.0 mcg/mL (10.0-30.0); Albumin 3.8 g/dL (3.4-4.8); Alcohol Less than 10 mg/dL (Less than 10); Alkaline Phosphatase 227 U/L (40-110); Anion Gap 18 mmol/L (10-20); BUN (Urea Nitrogen) 36 mg/dL (8.4-25.7); Bilirubin, Total 8.2 mg/dL (0.2-1.2); CK (CPK) 432 U/L (30-200); Calc. Creatinine Clearance 0 mL/min (70-130); Calcium 9.7 mg/dL (7.8-10.44); Carbon Dioxide 15 mmol/L (23-31); Chloride 110 mmol/L (98-107); Globulin 5.1 g/dL (2.4-3.5); Glucose 135 mg/dL (83-110); Lipase 31 U/L (8-78); Potassium 3.9 mmol/L (3.5-5.1); Protein, Total 8.9 g/dL (5.8-8.1); Salicylate Less than 8.0 mg/dL (15.0-30.0); Sodium 139 mmol/L (136-145)
[2021-10-16] MEDS ORDERED: Vancomycin 1 GM/200 ML BAG ONE (15:01)
[2021-10-16 16:33] LABS: SARS-CoV-2 NAA Rapid Test Not Detected (NotDetected)
[2021-10-16] MEDS ORDERED: Dextrose 5% in Water 1,000 ML IV PRN (16:45)
[2021-10-16] MEDS ORDERED: HumaLOG 300 UNITS/3 ML VIAL SC PRN (16:45)
[2021-10-16] MEDS ORDERED: Dextrose 50% Abboject 50 ML SYRINGE SLOW IVP PRN (16:45)
[2021-10-16] MEDS: Sodium Chloride 0.9% 1,000 ML IV SCH (18:31)
[2021-10-16 19:22] LABS: Lactic Acid 3.6 mmol/L (0.5-2.2)
[2021-10-16] MEDS ORDERED: Lactulose 10 GM/15 ML Oral Solution PR SCH (21:00)
[2021-10-16] MEDS: cefTRIAXone\\ROCEPHIN 1 GM in Sodium Chloride 0.9% 100 ML IVPB SCH (21:26)
[2021-10-17 05:31] LABS: INR-International Normal Ratio 1.8; Prothrombin Time 20.9 sec (12.0-14.7)
[2021-10-17 05:32] LABS: #Eosinphils 0.2 thou/uL (0.0-0.7); #Lymphocytes 1.1 thou/uL (1.20-3.40); #Monocytes 0.8 thou/uL (0.11-0.59); #Neutrophils 13.5 thou/uL (1.40-6.50); %Basophils 0.1 % (0.0-1.0); %Monocytes 5.4 % (0.0-10.0); %Neutrophils 86.5 % (42.0-75.0); Hemoglobin 11.3 g/dL (14.0-18.0); Mean Corpuscular HGB CONC 34.9 g/dL (32.0-36.0); Mean Corpuscular Hemoglobin 36.2 pg (27.0-31.0); Mean Platelet Volume 7.8 fL (7.4-10.4); Platelet Count 91 thou/uL (130-400); RBC Distribution Width 13.2 % (11.5-14.5); Red Blood Cell (RBC) Count 3.11 mill/uL (4.70-6.10); White Blood Cell (WBC) Count 15.6 thou/uL (4.8-10.8)
[2021-10-17] MEDS: Levothyroxine Sodium 100 MCG TAB PO SCH (05:42)
[2021-10-17] MEDS: Sodium Chloride 0.9% 1,000 ML IV SCH (05:46)
[2021-10-17 05:49] LABS: ALT (SGPT) 39 U/L (8-55); AST (SGOT) 58 U/L (5-34); Albumin 3.3 g/dL (3.4-4.8); Alkaline Phosphatase 195 U/L (40-110); Anion Gap 14 mmol/L (10-20); BUN (Urea Nitrogen) 35 mg/dL (8.4-25.7); Bilirubin, Total 6.6 mg/dL (0.2-1.2); CK (CPK) 407 U/L (30-200); Calc. Creatinine Clearance 56 mL/min (70-130); Calcium 8.7 mg/dL (7.8-10.44); Carbon Dioxide 18 mmol/L (23-31); Chloride 112 mmol/L (98-107); Glucose 99 mg/dL (83-110); Potassium 3.2 mmol/L (3.5-5.1); Protein, Total 7.3 g/dL (5.8-8.1); Sodium 141 mmol/L (136-145)
[2021-10-17] MEDS: Lactated Ringer's 1,000 ML IV SCH ×2 (09:02→21:10)
[2021-10-17] MEDS ORDERED: Potassium Chloride 20 MEQ TAB PO SCH (11:00)
[2021-10-17] MEDS: Rifaximin 550 MG TAB PO SCH (20:29)
[2021-10-17] MEDS: cefTRIAXone\\ROCEPHIN 1 GM in Sodium Chloride 0.9% 100 ML IVPB SCH (20:30)
[2021-10-18 05:10] LABS: #Eosinphils 0.3 thou/uL (0.0-0.7); #Lymphocytes 1.3 thou/uL (1.20-3.40); #Monocytes 0.6 thou/uL (0.11-0.59); #Neutrophils 8.3 thou/uL (1.40-6.50); %Basophils 0.3 % (0.0-1.0); %Eosinophils 2.8 % (0.0-10.0); %Monocytes 5.8 % (0.0-10.0); %Neutrophils 79.1 % (42.0-75.0); Hemoglobin 10.6 g/dL (14.0-18.0); Mean Corpuscular HGB CONC 34.7 g/dL (32.0-36.0); Mean Corpuscular Hemoglobin 34.9 pg (27.0-31.0); Mean Platelet Volume 7.5 fL (7.4-10.4); Platelet Count 81 thou/uL (130-400); RBC Distribution Width 13.2 % (11.5-14.5); Red Blood Cell (RBC) Count 3.04 mill/uL (4.70-6.10); White Blood Cell (WBC) Count 10.5 thou/uL (4.8-10.8)
[2021-10-18 05:33] LABS: Anion Gap 9 mmol/L (10-20); BUN (Urea Nitrogen) 28 mg/dL (8.4-25.7); Calc. Creatinine Clearance 63 mL/min (70-130); Calcium 8.4 mg/dL (7.8-10.44); Carbon Dioxide 19 mmol/L (23-31); Chloride 114 mmol/L (98-107); Glucose 110 mg/dL (83-110); Sodium 139 mmol/L (136-145)
[2021-10-18] MEDS: Levothyroxine Sodium 100 MCG TAB PO SCH (05:59)
[2021-10-18 06:11] LABS: Potassium 2.9 mmol/L (3.5-5.1)
[2021-10-18] MEDS ORDERED: Electrolyte Replacement Protocol 1 EACH FS PRN (06:26)
[2021-10-18] MEDS: Potassium Chloride 20 MEQ TAB PO SCH ×2 (07:05→11:54)
[2021-10-18] MEDS: Furosemide 20 MG TAB PO SCH (08:52)
[2021-10-18] MEDS: Spironolactone 25 MG TAB PO SCH (08:52)
[2021-10-18] MEDS: Rifaximin 550 MG TAB PO SCH ×2 (08:52→20:51)
[2021-10-18] MEDS: Lactated Ringer's 1,000 ML IV SCH (11:47)
[2021-10-18] MEDS ORDERED: Potassium Chloride 20 MEQ TAB PO SCH ×2 (12:00→22:00)
[2021-10-18 15:23] VITALS: BMI 24.1
[2021-10-18 18:23] LABS: Anion Gap 10 mmol/L (10-20); BUN (Urea Nitrogen) 24 mg/dL (8.4-25.7); Calc. Creatinine Clearance 63 mL/min (70-130); Calcium 8.9 mg/dL (7.8-10.44); Carbon Dioxide 19 mmol/L (23-31); Chloride 113 mmol/L (98-107); Glucose 116 mg/dL (83-110); Potassium 3.2 mmol/L (3.5-5.1); Sodium 139 mmol/L (136-145)
[2021-10-18] MEDS: cefTRIAXone\\ROCEPHIN 1 GM in Sodium Chloride 0.9% 100 ML IVPB SCH (20:54)
[2021-10-19 05:40] LABS: #Eosinphils 0.3 thou/uL (0.0-0.7); #Lymphocytes 1.8 thou/uL (1.20-3.40); #Monocytes 0.6 thou/uL (0.11-0.59); #Neutrophils 6.3 thou/uL (1.40-6.50); %Basophils 0.5 % (0.0-1.0); %Lymphocytes 20.1 % (21.0-51.0); %Monocytes 6.7 % (0.0-10.0); %Neutrophils 69.7 % (42.0-75.0); Hemoglobin 11.4 g/dL (14.0-18.0); Mean Corpuscular HGB CONC 32.8 g/dL (32.0-36.0); Mean Corpuscular Hemoglobin 34.4 pg (27.0-31.0); Mean Platelet Volume 7.5 fL (7.4-10.4); Platelet Count 103 thou/uL (130-400); RBC Distribution Width 13.6 % (11.5-14.5); Red Blood Cell (RBC) Count 3.32 mill/uL (4.70-6.10); White Blood Cell (WBC) Count 9.1 thou/uL (4.8-10.8)
[2021-10-19 05:56] LABS: Anion Gap 12 mmol/L (10-20); BUN (Urea Nitrogen) 19 mg/dL (8.4-25.7); Calc. Creatinine Clearance 75 mL/min (70-130); Calcium 8.6 mg/dL (7.8-10.44); Carbon Dioxide 15 mmol/L (23-31); Chloride 115 mmol/L (98-107); Glucose 128 mg/dL (83-110); Magnesium 1.6 mg/dL (1.6-2.6); Potassium 3.5 mmol/L (3.5-5.1); Sodium 138 mmol/L (136-145)
[2021-10-19] MEDS ORDERED: Levothyroxine Sodium 125 MCG TAB PO SCH (06:00)
[2021-10-19] MEDS ORDERED: Potassium Chloride 20 MEQ TAB PO SCH (06:15)
[2021-10-19] MEDS ORDERED: Magnesium 2 GM/50 ML 2 GM in Premix Bag 1 BAG IVPB SCH (06:15)
[2021-10-19] MEDS ORDERED: Lantus 1000 UNITS/10 ML VIAL SC SCH (09:00)
[2021-10-19] MEDS: Furosemide 20 MG TAB PO SCH (10:01)
[2021-10-19] MEDS: Rifaximin 550 MG TAB PO SCH (10:01)
[2021-10-19] MEDS: Spironolactone 25 MG TAB PO SCH (10:01)
[2021-10-19 12:07] VITALS: BP 134/70; TEMP 97.4
[2021-10-19 12:58] LABS: Potassium 3.8 mmol/L (3.5-5.1)
== END 2021-10-19 13:55 | disposition home or self-care (01) | DRG 641 ==
LOC: ERS 12:59 → 2NO 15:37
PROVIDERS: ADMIT Internal Medicine; ATTEND Internal Medicine
DX: E86.0 Dehydration (principal); R18.8 Other ascites; E87.2 Acidosis; Z20.822 Contact with and (suspected) exposure to COVID-19; K74.60 Unspecified cirrhosis of liver; E03.9 Hypothyroidism, unspecified; L89.152 Pressure ulcer of sacral region, stage 2; N18.30 Chronic kidney disease, stage 3 unspecified; K75.81 Nonalcoholic steatohepatitis (NASH); I12.9 Hypertensive chronic kidney disease with stage 1 through stage 4 chronic kidney disease, or unspecified chronic kidney disease; E87.6 Hypokalemia; K72.90 Hepatic failure, unspecified without coma; E11.22 Type 2 diabetes mellitus with diabetic chronic kidney disease; Z88.8 Allergy status to other drugs, medicaments and biological substances; Z79.890 Hormone replacement therapy; Z79.899 Other long term (current) drug therapy
CPT/HCPCS: 0240U; 36415; 36416; 70450; 71045; 80048; 80053; 80306; 80307; 81003; 82140; 82550; 82947; 83605; 83690; 83735; 83880; 84443; 84484; 85025; 85610; 87040; 87086; 87149; 93005; J0692; J0696; J3370; J3475; J3490; J7050; J7120

== ENCOUNTER 2021-11-02 10:12 | Inpatient (IN) | payer MEDICARE ==
[2021-11-02 11:04] LABS: #Eosinphils 0.1 thou/uL (0.0-0.7); #Lymphocytes 0.9 thou/uL (1.20-3.40); #Monocytes 0.6 thou/uL (0.11-0.59); #Neutrophils 4.5 thou/uL (1.40-6.50); %Basophils 0.4 % (0.0-1.0); %Eosinophils 1.4 % (0.0-10.0); %Lymphocytes 14.4 % (21.0-51.0); %Monocytes 9.1 % (0.0-10.0); %Neutrophils 74.6 % (42.0-75.0); Hemoglobin 11.4 g/dL (14.0-18.0); Mean Corpuscular HGB CONC 35.2 g/dL (32.0-36.0); Mean Corpuscular Hemoglobin 35.7 pg (27.0-31.0); Mean Platelet Volume 7.2 fL (7.4-10.4); Platelet Count 127 thou/uL (130-400); RBC Distribution Width 13.3 % (11.5-14.5); White Blood Cell (WBC) Count 6.1 thou/uL (4.8-10.8)
[2021-11-02 11:11] LABS: INR-International Normal Ratio 1.5; Prothrombin Time 18.2 sec (12.0-14.7)
[2021-11-02 11:12] LABS: PTT 36.5 sec (22.9-36.1)
[2021-11-02 11:19] LABS: Bilirubin Negative (Negative); Blood, Urine Negative (Negative); Clarity Clear (Clear); Glucose, Urine (Dipstick) Normal (Negative); Ketone, Urine Negative (Negative); Leukocyte Negative Leu/uL (Negative); Nitrite Negative (Negative); Protein, Urine (Dipstick) Negative (Neg-Trace); Specific Gravity, Urine 1.021 (1.002-1.036); Urobilinogen Normal mg/dL (Less than 2); pH, Urine 5.5 (5.0-9.0)
[2021-11-02 11:23] LABS: ALT (SGPT) 57 U/L (8-55); AST (SGOT) 79 U/L (5-34); Albumin 3.3 g/dL (3.4-4.8); Alkaline Phosphatase 332 U/L (40-110); Anion Gap 19 mmol/L (10-20); BUN (Urea Nitrogen) 27 mg/dL (8.4-25.7); Bilirubin, Total 4.3 mg/dL (0.2-1.2); CK (CPK) 1010 U/L (30-200); Calc. Creatinine Clearance 0 mL/min (70-130); Calcium 9.5 mg/dL (7.8-10.44); Carbon Dioxide 15 mmol/L (23-31); Chloride 110 mmol/L (98-107); Globulin 4.8 g/dL (2.4-3.5); Glucose 169 mg/dL (83-110); Potassium 4.4 mmol/L (3.5-5.1); Protein, Total 8.1 g/dL (5.8-8.1); Sodium 140 mmol/L (136-145)
[2021-11-02] MEDS ORDERED: Dextrose 50% Abboject 50 ML SYRINGE SLOW IVP PRN (12:59)
[2021-11-02] MEDS ORDERED: Dextrose 5% in Water 1,000 ML IV PRN (12:59)
[2021-11-02] MEDS ORDERED: HumaLOG 300 UNITS/3 ML VIAL SC PRN (12:59)
[2021-11-02] MEDS ORDERED: Ondansetron PF 4 MG/2 ML Vial IVP PRN (12:59)
[2021-11-02 15:06] LABS: SARS-CoV-2 NAA Rapid Test Not Detected (NotDetected)
[2021-11-02] MEDS: Lactulose 10 GM/15 ML Oral Solution PR SCH ×2 (15:35→22:23)
[2021-11-02] MEDS ORDERED: Sodium Bicarbonate 100 MEQ in Dextrose 5% in Water 1,000 ML IV SCH (16:00)
[2021-11-02] MEDS: Lactated Ringer's 1,000 ML IV SCH (16:13)
[2021-11-03 01:36] LABS: SARS-CoV-2 PCR by NAA Not Detected (NotDetected)
[2021-11-03 04:48] LABS: #Eosinphils 0.1 thou/uL (0.0-0.7); #Lymphocytes 1.4 thou/uL (1.20-3.40); #Monocytes 0.7 thou/uL (0.11-0.59); #Neutrophils 4.4 thou/uL (1.40-6.50); %Basophils 0.5 % (0.0-1.0); %Eosinophils 1.7 % (0.0-10.0); %Lymphocytes 21.4 % (21.0-51.0); %Monocytes 10.7 % (0.0-10.0); %Neutrophils 65.6 % (42.0-75.0); Hemoglobin 11.3 g/dL (14.0-18.0); Mean Corpuscular HGB CONC 36.1 g/dL (32.0-36.0); Mean Corpuscular Hemoglobin 36.5 pg (27.0-31.0); Mean Platelet Volume 7.2 fL (7.4-10.4); Platelet Count 111 thou/uL (130-400); RBC Distribution Width 13.2 % (11.5-14.5); Red Blood Cell (RBC) Count 3.09 mill/uL (4.70-6.10); White Blood Cell (WBC) Count 6.7 thou/uL (4.8-10.8)
[2021-11-03 04:59] LABS: ALT (SGPT) 45 U/L (8-55); AST (SGOT) 67 U/L (5-34); Albumin 2.9 g/dL (3.4-4.8); Alkaline Phosphatase 275 U/L (40-110); Anion Gap 13 mmol/L (10-20); BUN (Urea Nitrogen) 20 mg/dL (8.4-25.7); Bilirubin, Total 4.5 mg/dL (0.2-1.2); CK (CPK) 668 U/L (30-200); Calc. Creatinine Clearance 64 mL/min (70-130); Calcium 8.9 mg/dL (7.8-10.44); Carbon Dioxide 19 mmol/L (23-31); Chloride 110 mmol/L (98-107); Globulin 4.3 g/dL (2.4-3.5); Glucose 127 mg/dL (83-110); Potassium 3.5 mmol/L (3.5-5.1); Protein, Total 7.2 g/dL (5.8-8.1); Sodium 138 mmol/L (136-145)
[2021-11-03] MEDS: Lactated Ringer's 1,000 ML IV SCH ×3 (05:15→23:32)
[2021-11-03] MEDS ORDERED: FLU VACC QS2021-22(65YR UP)/PF 240 MCG/0.7 ML SYRINGE IM ONE (09:00)
[2021-11-03] MEDS ORDERED: Sodium Chloride 0.9% 1,000 ML IV SCH (14:00)
[2021-11-04] MEDS: Rifaximin 550 MG TAB PO SCH ×2 (09:15→19:59)
[2021-11-04] MEDS: Lactated Ringer's 1,000 ML IV SCH ×3 (09:18→20:01)
[2021-11-04 09:34] LABS: ALT (SGPT) 44 U/L (8-55); AST (SGOT) 62 U/L (5-34); Albumin 2.6 g/dL (3.4-4.8); Alkaline Phosphatase 243 U/L (40-110); Anion Gap 11 mmol/L (10-20); BUN (Urea Nitrogen) 19 mg/dL (8.4-25.7); CK (CPK) 341 U/L (30-200); Calc. Creatinine Clearance 64 mL/min (70-130); Calcium 8.9 mg/dL (7.8-10.44); Carbon Dioxide 19 mmol/L (23-31); Chloride 109 mmol/L (98-107); Globulin 4.2 g/dL (2.4-3.5); Glucose 95 mg/dL (83-110); Potassium 3.3 mmol/L (3.5-5.1); Protein, Total 6.8 g/dL (5.8-8.1); Sodium 136 mmol/L (136-145)
[2021-11-05] MEDS: Lactated Ringer's 1,000 ML IV SCH (04:54)
[2021-11-05] MEDS: Rifaximin 550 MG TAB PO SCH ×2 (09:09→21:21)
[2021-11-05 15:38] LABS: ALT (SGPT) 60 U/L (8-55); AST (SGOT) 95 U/L (5-34); Albumin 2.6 g/dL (3.4-4.8); Alkaline Phosphatase 296 U/L (40-110); Anion Gap 13 mmol/L (10-20); BUN (Urea Nitrogen) 16 mg/dL (8.4-25.7); Bilirubin, Total 3.1 mg/dL (0.2-1.2); CK (CPK) 182 U/L (30-200); Calc. Creatinine Clearance 65 mL/min (70-130); Calcium 8.5 mg/dL (7.8-10.44); Carbon Dioxide 18 mmol/L (23-31); Chloride 109 mmol/L (98-107); Glucose 166 mg/dL (83-110); Potassium 3.8 mmol/L (3.5-5.1); Protein, Total 6.6 g/dL (5.8-8.1); Sodium 136 mmol/L (136-145)
[2021-11-06 08:55] VITALS: BMI 23.6
[2021-11-06] MEDS: Rifaximin 550 MG TAB PO SCH ×2 (09:39→20:25)
[2021-11-07] MEDS: Spironolactone 25 MG TAB PO SCH (09:27)
[2021-11-07] MEDS: Furosemide 20 MG TAB PO SCH (09:27)
[2021-11-07] MEDS: Levothyroxine 150 MCG TAB PO SCH (09:27)
[2021-11-07] MEDS: Cholecalciferol 1,000 UNITS (25 MCG) TAB PO SCH (09:28)
[2021-11-07] MEDS: Rifaximin 550 MG TAB PO SCH ×2 (09:28→20:30)
[2021-11-08] MEDS: Cholecalciferol 1,000 UNITS (25 MCG) TAB PO SCH (08:08)
[2021-11-08] MEDS: Rifaximin 550 MG TAB PO SCH (08:08)
[2021-11-08] MEDS: Levothyroxine 150 MCG TAB PO SCH (08:09)
[2021-11-08] MEDS: Spironolactone 25 MG TAB PO SCH (08:09)
[2021-11-08] MEDS: Furosemide 20 MG TAB PO SCH (08:09)
[2021-11-08 08:50] VITALS: BP 124/74; TEMP 97.9
== END 2021-11-08 17:03 | DRG 441 ==
LOC: ERS 10:12 → 2NO 12:22 → MSONC 11-06 19:19
PROVIDERS: ADMIT Internal Medicine; ATTEND Internal Medicine
DX: K72.90 Hepatic failure, unspecified without coma (principal); G92.8 Other toxic encephalopathy; M62.82 Rhabdomyolysis; E87.2 Acidosis; R18.8 Other ascites; K74.60 Unspecified cirrhosis of liver; Z20.822 Contact with and (suspected) exposure to COVID-19; R74.01 Elevation of levels of liver transaminase levels; E03.9 Hypothyroidism, unspecified; E11.9 Type 2 diabetes mellitus without complications; Z66 Do not resuscitate; D64.9 Anemia, unspecified; D69.6 Thrombocytopenia, unspecified; K75.4 Autoimmune hepatitis; Z88.8 Allergy status to other drugs, medicaments and biological substances; Z91.14 Patient's other noncompliance with medication regimen; Z79.4 Long term (current) use of insulin; Z79.899 Other long term (current) drug therapy; Z79.890 Hormone replacement therapy; Z87.891 Personal history of nicotine dependence
CPT/HCPCS: 36415; 36416; 51702; 70450; 71045; 72125; 76705; 80053; 81003; 82140; 82550; 84484; 85025; 85610; 85730; 93005; J1815; J1956; J7070; J7120; U0002; U0003; U0005

== ENCOUNTER 2022-11-20 14:57 | Inpatient (IN) | payer OTHER ==
[2022-11-20 15:28] LABS: #Basophils 0.1 thou/uL (0.0-0.2); #Eosinphils 0.1 thou/uL (0.0-0.7); #Lymphocytes 1.9 thou/uL (1.20-3.40); #Monocytes 0.5 thou/uL (0.11-0.59); #Neutrophils 3.7 thou/uL (1.40-6.50); %Basophils 1.2 % (0.0-1.0); %Eosinophils 1.6 % (0.0-10.0); %Lymphocytes 29.6 % (21.0-51.0); %Monocytes 7.8 % (0.0-10.0); %Neutrophils 59.8 % (42.0-75.0); Hemoglobin 13.4 g/dL (14.0-18.0); Mean Corpuscular HGB CONC 35.3 g/dL (32.0-36.0); Mean Corpuscular Hemoglobin 33.5 pg (27.0-31.0); Mean Platelet Volume 7.2 fL (7.4-10.4); Platelet Count 103 10x3/uL (130-400); RBC Distribution Width 12.4 % (11.5-14.5); White Blood Cell (WBC) Count 6.3 10x3/uL (4.8-10.8)
[2022-11-20 15:54] LABS: ALT (SGPT) 29 U/L (8-55); AST (SGOT) 30 U/L (5-34); Albumin 3.5 g/dL (3.4-4.8); Alkaline Phosphatase 176 U/L (40-110); Anion Gap 16 mmol/L (10-20); BUN (Urea Nitrogen) 24 mg/dL (8.4-25.7); Bilirubin, Total 2.8 mg/dL (0.2-1.2); Calc. Creatinine Clearance 0 mL/min (70-130); Calcium 9.9 mg/dL (7.8-10.44); Carbon Dioxide 20 mmol/L (23-31); Chloride 108 mmol/L (98-107); Estimated GFR 44; Globulin 4.1 g/dL (2.4-3.5); Glucose 185 mg/dL (83-110); Potassium 4.3 mmol/L (3.5-5.1); Protein, Total 7.6 g/dL (5.8-8.1); Sodium 140 mmol/L (136-145)
[2022-11-20 16:15] LABS: Bilirubin Negative (Negative); Blood, Urine Negative (Negative); Clarity Clear (Clear); Glucose, Urine (Dipstick) Normal (Negative); Ketone, Urine Negative (Negative); Leukocyte Negative Leu/uL (Negative); Nitrite Negative (Negative); Protein, Urine (Dipstick) Negative (Neg-Trace); Specific Gravity, Urine 1.016 (1.002-1.036); Urobilinogen Normal mg/dL (Less than 2)
[2022-11-20] MEDS ORDERED: Acetaminophen 325 MG TAB PO PRN (18:25)
[2022-11-20] MEDS ORDERED: Dextrose 5% in Water 1,000 ML IV PRN (18:25)
[2022-11-20] MEDS ORDERED: Dextrose 50% Abboject 50 ML SYRINGE SLOW IVP PRN (18:25)
[2022-11-20] MEDS ORDERED: Ondansetron PF 4 MG/2 ML Vial IVP PRN (18:25)
[2022-11-20] MEDS ORDERED: Sodium Bicarb 50 MEQ/50 ML Abboject 8.4% SYRINGE IVP SCH (18:30)
[2022-11-20 18:35] LABS: Lactic Acid 2.3 mmol/L (0.5-2.2)
[2022-11-20 18:40] VITALS: BMI 26.1
[2022-11-20] MEDS: Sodium Chloride 0.9% 1,000 ML IV SCH (20:33)
[2022-11-20] MEDS: Sodium Bicarbonate Tab 325 MG TAB PO SCH (20:37)
[2022-11-20] MEDS: Rifaximin 550 MG TAB PO SCH (20:37)
[2022-11-21] MEDS ORDERED: HumaLOG 300 UNITS/3 ML VIAL SC PRN (00:12)
[2022-11-21] MEDS: Sodium Chloride 0.9% 1,000 ML IV SCH ×2 (04:57→14:36)
[2022-11-21] MEDS: Levothyroxine 150 MCG TAB PO SCH (05:38)
[2022-11-21] MEDS: HumaLOG 300 UNITS/3 ML VIAL SC PRN ×3 (05:39→17:00)
[2022-11-21 06:16] LABS: #Eosinphils 0.1 thou/uL (0.0-0.7); #Lymphocytes 1.5 thou/uL (1.20-3.40); #Monocytes 0.6 thou/uL (0.11-0.59); #Neutrophils 2.7 thou/uL (1.40-6.50); %Basophils 0.2 % (0.0-1.0); %Eosinophils 1.2 % (0.0-10.0); %Lymphocytes 31.3 % (21.0-51.0); %Neutrophils 55.3 % (42.0-75.0); Hemoglobin 11.1 g/dL (14.0-18.0); Mean Corpuscular HGB CONC 35.8 g/dL (32.0-36.0); Mean Corpuscular Volume 94.9 fl (78.0-98.0); Mean Platelet Volume 7.7 fL (7.4-10.4); Platelet Count 86 10x3/uL (130-400); RBC Distribution Width 12.4 % (11.5-14.5); Red Blood Cell (RBC) Count 3.26 mill/uL (4.70-6.10); White Blood Cell (WBC) Count 4.9 10x3/uL (4.8-10.8)
[2022-11-21 06:35] LABS: ALT (SGPT) 24 U/L (8-55); AST (SGOT) 26 U/L (5-34); Albumin 2.7 g/dL (3.4-4.8); Alkaline Phosphatase 151 U/L (40-110); Anion Gap 13 mmol/L (10-20); BUN (Urea Nitrogen) 23 mg/dL (8.4-25.7); Calc. Creatinine Clearance 48 mL/min (70-130); Calcium 8.7 mg/dL (7.8-10.44); Carbon Dioxide 18 mmol/L (23-31); Chloride 115 mmol/L (98-107); Estimated GFR 52; Globulin 3.3 g/dL (2.4-3.5); Glucose 259 mg/dL (83-110); Potassium 3.7 mmol/L (3.5-5.1); Sodium 142 mmol/L (136-145)
[2022-11-21] MEDS: Rifaximin 550 MG TAB PO SCH ×2 (08:51→20:20)
[2022-11-21] MEDS: Insulin Glargine 30 UNITS/0.3 ML VIAL SC SCH (08:51)
[2022-11-21] MEDS: Sodium Bicarbonate Tab 325 MG TAB PO SCH ×3 (08:51→20:20)
[2022-11-22] MEDS: Sodium Chloride 0.9% 1,000 ML IV SCH ×2 (01:30→08:59)
[2022-11-22 05:08] LABS: #Eosinphils 0.1 thou/uL (0.0-0.7); #Lymphocytes 1.7 thou/uL (1.20-3.40); #Monocytes 0.5 thou/uL (0.11-0.59); #Neutrophils 3.2 thou/uL (1.40-6.50); %Basophils 0.3 % (0.0-1.0); %Eosinophils 2.4 % (0.0-10.0); %Monocytes 9.5 % (0.0-10.0); %Neutrophils 57.8 % (42.0-75.0); Hemoglobin 10.9 g/dL (14.0-18.0); Mean Corpuscular HGB CONC 35.7 g/dL (32.0-36.0); Mean Corpuscular Hemoglobin 33.8 pg (27.0-31.0); Mean Corpuscular Volume 94.6 fl (78.0-98.0); Mean Platelet Volume 7.4 fL (7.4-10.4); Platelet Count 72 10x3/uL (130-400); RBC Distribution Width 12.2 % (11.5-14.5); Red Blood Cell (RBC) Count 3.21 mill/uL (4.70-6.10); White Blood Cell (WBC) Count 5.5 10x3/uL (4.8-10.8)
[2022-11-22 05:12] LABS: ALT (SGPT) 22 U/L (8-55); AST (SGOT) 24 U/L (5-34); Albumin 2.5 g/dL (3.4-4.8); Alkaline Phosphatase 131 U/L (40-110); Anion Gap 11 mmol/L (10-20); BUN (Urea Nitrogen) 20 mg/dL (8.4-25.7); Bilirubin, Total 2.4 mg/dL (0.2-1.2); Calc. Creatinine Clearance 58 mL/min (70-130); Calcium 8.2 mg/dL (7.8-10.44); Carbon Dioxide 19 mmol/L (23-31); Chloride 113 mmol/L (98-107); Estimated GFR 65; Globulin 3.1 g/dL (2.4-3.5); Glucose 138 mg/dL (83-110); Potassium 3.7 mmol/L (3.5-5.1); Protein, Total 5.6 g/dL (5.8-8.1); Sodium 139 mmol/L (136-145)
[2022-11-22] MEDS: Levothyroxine 150 MCG TAB PO SCH (05:44)
[2022-11-22 08:44] VITALS: BP 126/57; TEMP 98.5
[2022-11-22] MEDS: Insulin Glargine 30 UNITS/0.3 ML VIAL SC SCH (08:59)
[2022-11-22] MEDS: Rifaximin 550 MG TAB PO SCH (08:59)
[2022-11-22] MEDS: Sodium Bicarbonate Tab 325 MG TAB PO SCH (08:59)
== END 2022-11-22 12:15 | disposition home or self-care (01) | DRG 442 ==
LOC: ERS 14:57 → MSONC 18:37
PROVIDERS: ADMIT Hospitalist; ATTEND Internal Medicine
DX: K76.82 Hepatic encephalopathy (principal); E87.20 Acidosis, unspecified; N17.9 Acute kidney failure, unspecified; K74.60 Unspecified cirrhosis of liver; E11.22 Type 2 diabetes mellitus with diabetic chronic kidney disease; N18.30 Chronic kidney disease, stage 3 unspecified; E03.9 Hypothyroidism, unspecified; Z91.199 Patient's noncompliance with other medical treatment and regimen due to unspecified reason; Z88.8 Allergy status to other drugs, medicaments and biological substances; Z79.4 Long term (current) use of insulin; Z79.899 Other long term (current) drug therapy; Z87.891 Personal history of nicotine dependence; Z91.14 Patient's other noncompliance with medication regimen
CPT/HCPCS: 36415; 36416; 80053; 81003; 82140; 83605; 85025; 96360; J1815; J7050

== ENCOUNTER 2022-11-30 13:13 | Inpatient (IN) | payer MEDICARE, OTHER ==
[2022-11-30 14:10] LABS: #Eosinphils 0.1 thou/uL (0.0-0.7); #Lymphocytes 1.6 thou/uL (1.20-3.40); #Monocytes 0.5 thou/uL (0.11-0.59); #Neutrophils 5.4 thou/uL (1.40-6.50); %Basophils 0.2 % (0.0-1.0); %Eosinophils 1.5 % (0.0-10.0); %Lymphocytes 21.4 % (21.0-51.0); %Monocytes 6.6 % (0.0-10.0); %Neutrophils 70.3 % (42.0-75.0); Hemoglobin 13.5 g/dL (14.0-18.0); Mean Corpuscular HGB CONC 35.8 g/dL (32.0-36.0); Mean Platelet Volume 7.9 fL (7.4-10.4); Platelet Count 85 10x3/uL (130-400); RBC Distribution Width 12.4 % (11.5-14.5); Red Blood Cell (RBC) Count 3.98 mill/uL (4.70-6.10); White Blood Cell (WBC) Count 7.6 10x3/uL (4.8-10.8)
[2022-11-30 14:43] LABS: ALT (SGPT) 27 U/L (8-55); AST (SGOT) 26 U/L (5-34); Albumin 3.5 g/dL (3.4-4.8); Alkaline Phosphatase 178 U/L (40-110); Anion Gap 14 mmol/L (10-20); BUN (Urea Nitrogen) 27 mg/dL (8.4-25.7); Bilirubin, Total 3.3 mg/dL (0.2-1.2); Calc. Creatinine Clearance 0 mL/min (70-130); Calcium 10.2 mg/dL (7.8-10.44); Carbon Dioxide 20 mmol/L (23-31); Chloride 108 mmol/L (98-107); Estimated GFR 44; Globulin 4.2 g/dL (2.4-3.5); Glucose 257 mg/dL (83-110); Lipase 29 U/L (8-78); Potassium 4.4 mmol/L (3.5-5.1); Protein, Total 7.7 g/dL (5.8-8.1); Sodium 138 mmol/L (136-145)
[2022-11-30 14:50] LABS: Acetaminophen Less than 10.0 mcg/mL (10.0-30.0); Alcohol Less than 10 mg/dL (Less than 10); Salicylate Less than 8.0 mg/dL (15.0-30.0)
[2022-11-30] MEDS ORDERED: Ondansetron PF 4 MG/2 ML Vial IVP PRN (17:38)
[2022-11-30] MEDS ORDERED: Ondansetron ODT 4 MG TAB PO PRN (17:38)
[2022-11-30] MEDS ORDERED: Dextrose 5% in Water 1,000 ML IV PRN (17:40)
[2022-11-30] MEDS ORDERED: Dextrose 50% Abboject 50 ML SYRINGE SLOW IVP PRN (17:40)
[2022-11-30 20:05] VITALS: BMI 29.8
[2022-11-30] MEDS: Sodium Chloride 0.9% 1,000 ML IV SCH (21:15)
[2022-11-30] MEDS: HumaLOG 300 UNITS/3 ML VIAL SC PRN (21:20)
[2022-11-30] MEDS: Heparin 5,000 UNITS/ML VIAL SC SCH (21:28)
[2022-12-01 04:35] LABS: #Eosinphils 0.1 thou/uL (0.0-0.7); #Monocytes 0.6 thou/uL (0.11-0.59); %Basophils 0.2 % (0.0-1.0); %Eosinophils 2.2 % (0.0-10.0); %Monocytes 9.4 % (0.0-10.0); %Neutrophils 58.1 % (42.0-75.0); Mean Corpuscular HGB CONC 35.5 g/dL (32.0-36.0); Mean Corpuscular Hemoglobin 33.6 pg (27.0-31.0); Mean Corpuscular Volume 94.7 fl (78.0-98.0); Mean Platelet Volume 7.9 fL (7.4-10.4); Platelet Count 97 10x3/uL (130-400); RBC Distribution Width 12.4 % (11.5-14.5); Red Blood Cell (RBC) Count 3.57 mill/uL (4.70-6.10); White Blood Cell (WBC) Count 6.8 10x3/uL (4.8-10.8)
[2022-12-01] MEDS: HumaLOG 300 UNITS/3 ML VIAL SC PRN ×4 (04:36→20:23)
[2022-12-01 05:00] LABS: Anion Gap 14 mmol/L (10-20); BUN (Urea Nitrogen) 29 mg/dL (8.4-25.7); Calc. Creatinine Clearance 48 mL/min (70-130); Carbon Dioxide 17 mmol/L (23-31); Chloride 113 mmol/L (98-107); Estimated GFR 49; Glucose 231 mg/dL (83-110); Potassium 3.8 mmol/L (3.5-5.1); Sodium 140 mmol/L (136-145)
[2022-12-01] MEDS: Heparin 5,000 UNITS/ML VIAL SC SCH ×3 (09:15→20:26)
[2022-12-01] MEDS: Sodium Chloride 0.9% 1,000 ML IV SCH ×2 (09:18→20:21)
[2022-12-01] MEDS: Sodium Bicarbonate Tab 325 MG TAB PO SCH (20:21)
[2022-12-01] MEDS: Rifaximin 550 MG TAB PO SCH (20:21)
[2022-12-02 05:27] LABS: #Eosinphils 0.2 thou/uL (0.0-0.7); #Lymphocytes 2.1 thou/uL (1.20-3.40); #Monocytes 0.5 thou/uL (0.11-0.59); %Basophils 0.1 % (0.0-1.0); %Eosinophils 3.1 % (0.0-10.0); %Lymphocytes 36.3 % (21.0-51.0); %Monocytes 8.4 % (0.0-10.0); %Neutrophils 52.2 % (42.0-75.0); Hemoglobin 10.9 g/dL (14.0-18.0); Mean Corpuscular HGB CONC 36.9 g/dL (32.0-36.0); Mean Corpuscular Hemoglobin 34.9 pg (27.0-31.0); Mean Corpuscular Volume 94.6 fl (78.0-98.0); Platelet Count 75 10x3/uL (130-400); RBC Distribution Width 12.2 % (11.5-14.5); Red Blood Cell (RBC) Count 3.13 mill/uL (4.70-6.10); White Blood Cell (WBC) Count 5.7 10x3/uL (4.8-10.8)
[2022-12-02] MEDS: Levothyroxine 150 MCG TAB PO SCH (05:29)
[2022-12-02 05:43] LABS: ALT (SGPT) 27 U/L (8-55); AST (SGOT) 29 U/L (5-34); Albumin 2.6 g/dL (3.4-4.8); Alkaline Phosphatase 140 U/L (40-110); Anion Gap 13 mmol/L (10-20); BUN (Urea Nitrogen) 28 mg/dL (8.4-25.7); Bilirubin, Total 2.2 mg/dL (0.2-1.2); Calc. Creatinine Clearance 54 mL/min (70-130); Calcium 8.5 mg/dL (7.8-10.44); Carbon Dioxide 16 mmol/L (23-31); Chloride 113 mmol/L (98-107); Estimated GFR 57; Globulin 3.2 g/dL (2.4-3.5); Glucose 133 mg/dL (83-110); Potassium 3.9 mmol/L (3.5-5.1); Protein, Total 5.8 g/dL (5.8-8.1); Sodium 138 mmol/L (136-145)
[2022-12-02] MEDS ORDERED: Furosemide 20 MG TAB PO SCH (09:00)
[2022-12-02] MEDS ORDERED: Spironolactone 25 MG TAB PO SCH (09:00)
[2022-12-02] MEDS: Sodium Chloride 0.9% 1,000 ML IV SCH (09:25)
[2022-12-02] MEDS: Sodium Bicarbonate Tab 325 MG TAB PO SCH ×3 (09:26→20:04)
[2022-12-02] MEDS: Rifaximin 550 MG TAB PO SCH ×2 (09:26→20:04)
[2022-12-02] MEDS: Heparin 5,000 UNITS/ML VIAL SC SCH ×3 (09:27→21:03)
[2022-12-02] MEDS: Insulin Glargine 30 UNITS/0.3 ML VIAL SC SCH (09:28)
[2022-12-02] MEDS: HumaLOG 300 UNITS/3 ML VIAL SC PRN (14:37)
[2022-12-03] MEDS: Sodium Chloride 0.9% 1,000 ML IV SCH ×2 (01:25→14:10)
[2022-12-03] MEDS: Levothyroxine 150 MCG TAB PO SCH (05:03)
[2022-12-03 05:13] LABS: #Eosinphils 0.2 thou/uL (0.0-0.7); #Lymphocytes 1.7 thou/uL (1.20-3.40); #Monocytes 0.5 thou/uL (0.11-0.59); #Neutrophils 2.6 thou/uL (1.40-6.50); %Basophils 0.3 % (0.0-1.0); %Eosinophils 3.2 % (0.0-10.0); %Monocytes 9.1 % (0.0-10.0); %Neutrophils 53.5 % (42.0-75.0); Hemoglobin 10.5 g/dL (14.0-18.0); Mean Corpuscular HGB CONC 36.7 g/dL (32.0-36.0); Mean Corpuscular Hemoglobin 34.6 pg (27.0-31.0); Mean Corpuscular Volume 94.3 fl (78.0-98.0); Mean Platelet Volume 7.7 fL (7.4-10.4); Platelet Count 60 10x3/uL (130-400); RBC Distribution Width 12.2 % (11.5-14.5); Red Blood Cell (RBC) Count 3.03 mill/uL (4.70-6.10); White Blood Cell (WBC) Count 4.9 10x3/uL (4.8-10.8)
[2022-12-03 05:24] LABS: ALT (SGPT) 26 U/L (8-55); AST (SGOT) 30 U/L (5-34); Albumin 2.6 g/dL (3.4-4.8); Alkaline Phosphatase 143 U/L (40-110); Anion Gap 10 mmol/L (10-20); BUN (Urea Nitrogen) 21 mg/dL (8.4-25.7); Bilirubin, Total 1.7 mg/dL (0.2-1.2); Calc. Creatinine Clearance 53 mL/min (70-130); Calcium 8.3 mg/dL (7.8-10.44); Carbon Dioxide 18 mmol/L (23-31); Chloride 113 mmol/L (98-107); Estimated GFR 55; Glucose 147 mg/dL (83-110); Potassium 3.7 mmol/L (3.5-5.1); Protein, Total 5.6 g/dL (5.8-8.1); Sodium 137 mmol/L (136-145)
[2022-12-03] MEDS: Heparin 5,000 UNITS/ML VIAL SC SCH ×3 (07:15→21:03)
[2022-12-03] MEDS: Insulin Glargine 30 UNITS/0.3 ML VIAL SC SCH (08:56)
[2022-12-03] MEDS: Rifaximin 550 MG TAB PO SCH ×2 (08:56→20:06)
[2022-12-03] MEDS: Sodium Bicarbonate Tab 325 MG TAB PO SCH ×3 (08:56→20:06)
[2022-12-03] MEDS: HumaLOG 300 UNITS/3 ML VIAL SC PRN (14:11)
[2022-12-04 04:44] LABS: #Eosinphils 0.2 thou/uL (0.0-0.7); #Lymphocytes 1.3 thou/uL (1.20-3.40); #Monocytes 0.5 thou/uL (0.11-0.59); #Neutrophils 3.7 thou/uL (1.40-6.50); %Basophils 0.2 % (0.0-1.0); %Lymphocytes 23.4 % (21.0-51.0); %Monocytes 8.4 % (0.0-10.0); Hemoglobin 10.6 g/dL (14.0-18.0); Mean Corpuscular HGB CONC 36.9 g/dL (32.0-36.0); Mean Corpuscular Hemoglobin 34.4 pg (27.0-31.0); Mean Corpuscular Volume 93.2 fl (78.0-98.0); Mean Platelet Volume 7.1 fL (7.4-10.4); Platelet Count 55 10x3/uL (130-400); RBC Distribution Width 12.1 % (11.5-14.5); Red Blood Cell (RBC) Count 3.08 mill/uL (4.70-6.10); White Blood Cell (WBC) Count 5.7 10x3/uL (4.8-10.8)
[2022-12-04 05:00] LABS: ALT (SGPT) 27 U/L (8-55); AST (SGOT) 30 U/L (5-34); Albumin 2.7 g/dL (3.4-4.8); Alkaline Phosphatase 157 U/L (40-110); Anion Gap 8 mmol/L (10-20); BUN (Urea Nitrogen) 19 mg/dL (8.4-25.7); Bilirubin, Total 1.6 mg/dL (0.2-1.2); Calc. Creatinine Clearance 67 mL/min (70-130); Calcium 8.4 mg/dL (7.8-10.44); Carbon Dioxide 20 mmol/L (23-31); Chloride 111 mmol/L (98-107); Estimated GFR 73; Globulin 2.9 g/dL (2.4-3.5); Glucose 141 mg/dL (83-110); Potassium 3.5 mmol/L (3.5-5.1); Protein, Total 5.6 g/dL (5.8-8.1); Sodium 135 mmol/L (136-145)
[2022-12-04] MEDS: Levothyroxine 150 MCG TAB PO SCH (05:06)
[2022-12-04] MEDS: Heparin 5,000 UNITS/ML VIAL SC SCH ×3 (07:39→20:21)
[2022-12-04] MEDS: Sodium Bicarbonate Tab 325 MG TAB PO SCH ×3 (09:25→20:21)
[2022-12-04] MEDS: Rifaximin 550 MG TAB PO SCH ×2 (09:26→20:21)
[2022-12-04] MEDS: Insulin Glargine 30 UNITS/0.3 ML VIAL SC SCH (09:26)
[2022-12-04] MEDS: Furosemide 20 MG TAB PO SCH (09:26)
[2022-12-04] MEDS: Spironolactone 25 MG TAB PO SCH (09:26)
[2022-12-04] MEDS: HumaLOG 300 UNITS/3 ML VIAL SC PRN (14:36)
[2022-12-05 04:55] LABS: #Eosinphils 0.1 thou/uL (0.0-0.7); #Lymphocytes 1.6 thou/uL (1.20-3.40); #Monocytes 0.5 thou/uL (0.11-0.59); #Neutrophils 3.8 thou/uL (1.40-6.50); %Basophils 0.2 % (0.0-1.0); %Eosinophils 2.4 % (0.0-10.0); %Lymphocytes 25.7 % (21.0-51.0); %Monocytes 8.5 % (0.0-10.0); %Neutrophils 63.2 % (42.0-75.0); Hemoglobin 10.8 g/dL (14.0-18.0); Mean Corpuscular HGB CONC 36.8 g/dL (32.0-36.0); Mean Corpuscular Hemoglobin 34.5 pg (27.0-31.0); Mean Corpuscular Volume 93.6 fl (78.0-98.0); Mean Platelet Volume 7.1 fL (7.4-10.4); Platelet Count 66 10x3/uL (130-400); RBC Distribution Width 12.2 % (11.5-14.5); Red Blood Cell (RBC) Count 3.13 mill/uL (4.70-6.10)
[2022-12-05 04:59] LABS: ALT (SGPT) 33 U/L (8-55); AST (SGOT) 36 U/L (5-34); Albumin 2.8 g/dL (3.4-4.8); Alkaline Phosphatase 152 U/L (40-110); Anion Gap 13 mmol/L (10-20); BUN (Urea Nitrogen) 21 mg/dL (8.4-25.7); Calc. Creatinine Clearance 59 mL/min (70-130); Calcium 8.5 mg/dL (7.8-10.44); Carbon Dioxide 17 mmol/L (23-31); Chloride 111 mmol/L (98-107); Estimated GFR 62; Globulin 3.1 g/dL (2.4-3.5); Glucose 124 mg/dL (83-110); Potassium 3.5 mmol/L (3.5-5.1); Protein, Total 5.9 g/dL (5.8-8.1); Sodium 137 mmol/L (136-145)
[2022-12-05] MEDS: Levothyroxine 150 MCG TAB PO SCH (05:36)
[2022-12-05 06:37] VITALS: BP 102/59; TEMP 98.1
[2022-12-05] MEDS: Sodium Bicarbonate Tab 325 MG TAB PO SCH (09:05)
[2022-12-05] MEDS: Rifaximin 550 MG TAB PO SCH (09:05)
[2022-12-05] MEDS: Furosemide 20 MG TAB PO SCH (09:06)
[2022-12-05] MEDS: Heparin 5,000 UNITS/ML VIAL SC SCH ×2 (09:06→09:33)
[2022-12-05] MEDS: Spironolactone 25 MG TAB PO SCH (09:07)
[2022-12-05] MEDS: Insulin Glargine 30 UNITS/0.3 ML VIAL SC SCH (10:29)
[2022-12-05] MEDS: HumaLOG 300 UNITS/3 ML VIAL SC PRN (12:49)
== END 2022-12-05 15:02 | disposition home health service (06) | DRG 442 ==
LOC: ERS 13:13 → T4-B 16:03
PROVIDERS: ADMIT Family Medicine; ATTEND Internal Medicine
DX: K76.82 Hepatic encephalopathy (principal); E87.1 Hypo-osmolality and hyponatremia; E87.20 Acidosis, unspecified; N17.9 Acute kidney failure, unspecified; K74.60 Unspecified cirrhosis of liver; Z51.5 Encounter for palliative care; Z66 Do not resuscitate; E03.9 Hypothyroidism, unspecified; F17.210 Nicotine dependence, cigarettes, uncomplicated; E11.22 Type 2 diabetes mellitus with diabetic chronic kidney disease; N18.9 Chronic kidney disease, unspecified; B19.20 Unspecified viral hepatitis C without hepatic coma; Z20.822 Contact with and (suspected) exposure to COVID-19; E88.09 Other disorders of plasma-protein metabolism, not elsewhere classified; Z88.8 Allergy status to other drugs, medicaments and biological substances; Z79.890 Hormone replacement therapy; Z79.899 Other long term (current) drug therapy; Z91.14 Patient's other noncompliance with medication regimen; Z98.890 Other specified postprocedural states; Z83.79 Family history of other diseases of the digestive system; Z79.4 Long term (current) use of insulin
CPT/HCPCS: 36415; 36416; 80048; 80053; 80307; 82140; 83690; 84484; 85025; 93005; J1644; J1815; J7050; U0003; U0005

== ENCOUNTER 2023-05-26 23:25 | Inpatient (IN) | payer OTHER ==
[2023-05-27 00:34] LABS: #Monocytes 0.5 thou/uL (0.11-0.59); %Basophils 0.5 % (0.0-1.0); %Eosinophils 0.6 % (0.0-10.0); %Lymphocytes 15.6 % (21.0-51.0); %Monocytes 7.6 % (0.0-10.0); %Neutrophils 75.2 % (42.0-75.0); Hemoglobin 11.5 g/dL (14.0-18.0); Mean Corpuscular HGB CONC 36.1 g/dL (32.0-36.0); Mean Corpuscular Volume 91.4 fl (78.0-98.0); Mean Platelet Volume 10.1 fL (7.4-10.4); RBC Distribution Width 13.3 % (11.5-14.5); Red Blood Cell (RBC) Count 3.49 mill/uL (4.70-6.10); White Blood Cell (WBC) Count 6.6 10x3/uL (4.8-10.8)
[2023-05-27 00:42] LABS: Platelet Count 85 10x3/uL (130-400)
[2023-05-27 01:50] LABS: Amphetamine Not Detected (NotDetected); Barbiturates Screen Not Detected (NotDetected); Benzodiazepine Screen Not Detected (NotDetected); Cocaine Metabolite Screen Not Detected (NotDetected); Methadone Not Detected (NotDetected); Methamphetamine Not Detected (NotDetected); Opiate Screen Not Detected (NotDetected); Oxycodone Screen Not Detected (NotDetected); Phencyclidine (PCP) Not Detected (NotDetected); THC/Cannabinoid Screen Not Detected (NotDetected); Tricyclic Screen Not Detected (NotDetected)
[2023-05-27 02:05] LABS: ALT (SGPT) 20 U/L (8-55); AST (SGOT) 23 U/L (5-34); Albumin 3.3 g/dL (3.4-4.8); Alkaline Phosphatase 126 U/L (40-110); Anion Gap 13 mmol/L (10-20); BUN (Urea Nitrogen) 25 mg/dL (8.4-25.7); Bilirubin, Total 2.2 mg/dL (0.2-1.2); Calc. Creatinine Clearance 0 mL/min (70-130); Calcium 9.4 mg/dL (7.8-10.44); Carbon Dioxide 17 mmol/L (23-31); Chloride 112 mmol/L (98-107); Estimated GFR 48; Globulin 3.4 g/dL (2.4-3.5); Glucose 210 mg/dL (83-110); Potassium 3.9 mmol/L (3.5-5.1); Protein, Total 6.7 g/dL (5.8-8.1); Sodium 138 mmol/L (136-145)
[2023-05-27 02:11] LABS: Acetaminophen Less than 10 mcg/mL (10.0-30.0); Alcohol Less than 10.0 mg/dL (Less than 10); Salicylate Less than 8.0 mg/dL (15.0-30.0)
[2023-05-27] MEDS ORDERED: Acetaminophen 325 MG TAB PO PRN (03:17)
[2023-05-27] MEDS ORDERED: Acetaminophen 650 MG Suppository PR PRN (03:17)
[2023-05-27] MEDS ORDERED: Ondansetron ODT 4 MG TAB PO PRN (03:17)
[2023-05-27] MEDS ORDERED: Ondansetron PF 4 MG/2 ML Vial IVP PRN (03:17)
[2023-05-27] MEDS ORDERED: Ondansetron PF 4 MG/2 ML Vial ONE (04:23)
[2023-05-27 04:28] LABS: #Eosinphils 0.1 thou/uL (0.0-0.7); #Monocytes 0.5 thou/uL (0.11-0.59); #Neutrophils 4.3 thou/uL (1.40-6.50); %Basophils 0.3 % (0.0-1.0); %Eosinophils 1.2 % (0.0-10.0); %Lymphocytes 24.3 % (21.0-51.0); %Monocytes 7.9 % (0.0-10.0); Hemoglobin 10.8 g/dL (14.0-18.0); Mean Corpuscular HGB CONC 35.9 g/dL (32.0-36.0); Mean Platelet Volume 10.1 fL (7.4-10.4); RBC Distribution Width 13.2 % (11.5-14.5); Red Blood Cell (RBC) Count 3.27 mill/uL (4.70-6.10); White Blood Cell (WBC) Count 6.5 10x3/uL (4.8-10.8)
[2023-05-27 04:35] VITALS: BMI 25.4
[2023-05-27 04:38] LABS: Platelet Count 83 10x3/uL (130-400)
[2023-05-27 04:40] LABS: Bacteria/HPF None Seen HPF (None Seen); Bilirubin Negative (Negative); Blood, Urine Negative (Negative); CAUTI Indications for Culture Alt mental st,lethar; Clarity Clear (Clear); Glucose, Urine (Dipstick) 150 mg/dL (Negative); Ketone, Urine Trace mg/dL (Negative); Leukocyte Negative Leu/uL (Negative); Nitrite Negative (Negative); Protein, Urine (Dipstick) 10 mg/dL (Neg-Trace); RBC/HPF 0-3 HPF (0-3); Squamous Epithelial 0-3 HPF (0-3); Urobilinogen 3 mg/dL (Less than 2); pH, Urine 5.5 (5.0-9.0)
[2023-05-27 04:45] LABS: Urine Culture Reflex No No
[2023-05-27 04:45] LABS: Lactic Acid 1.9 mmol/L (0.5-2.2)
[2023-05-27 04:48] LABS: Anion Gap 14 mmol/L (10-20); BUN (Urea Nitrogen) 24 mg/dL (8.4-25.7); Calc. Creatinine Clearance 57 mL/min (70-130); Calcium 8.9 mg/dL (7.8-10.44); Carbon Dioxide 17 mmol/L (23-31); Chloride 113 mmol/L (98-107); Estimated GFR 59; Glucose 170 mg/dL (83-110); Potassium 3.8 mmol/L (3.5-5.1); Sodium 140 mmol/L (136-145)
[2023-05-27] MEDS ORDERED: Glucagon 1 MG/ML KIT IM PRN (07:19)
[2023-05-27] MEDS ORDERED: HumaLOG 300 UNITS/3 ML VIAL SC PRN ×2 (07:19)
[2023-05-27] MEDS ORDERED: Dextrose 5% in Water 1,000 ML IV PRN (07:19)
[2023-05-27] MEDS ORDERED: Dextrose 50% Abboject 50 ML SYRINGE SLOW IVP PRN (07:19)
[2023-05-27] MEDS ORDERED: Albumin 25% 25 GM/100 ML BOT IVPB SCH (08:00)
[2023-05-27] MEDS ORDERED: Levothyroxine 150 MCG TAB PO SCH (08:15)
[2023-05-27] MEDS: Rifaximin 200 MG TAB PO SCH ×2 (09:21→20:34)
[2023-05-28] MEDS ORDERED: Levothyroxine 150 MCG TAB PO SCH (06:00)
[2023-05-28 06:06] VITALS: TEMP 98.5
[2023-05-28] MEDS: Rifaximin 200 MG TAB PO SCH (08:51)
[2023-05-28 12:07] VITALS: BP 147/84
== END 2023-05-28 13:57 | disposition home or self-care (01) | DRG 442 ==
LOC: ERS 23:25 → ERHOLD 05-27 03:01 → T4-A 05-27 08:04
PROVIDERS: ADMIT Student in an Organized Health Care Education/Training Program; ATTEND Internal Medicine
PROC: 0T9B70Z Drainage of Bladder with Drainage Device, Via Natural or Artificial Opening (ICD-10-PCS; principal; 2023-05-27)
DX: K76.82 Hepatic encephalopathy (principal); N17.9 Acute kidney failure, unspecified; R18.8 Other ascites; K74.60 Unspecified cirrhosis of liver; E03.9 Hypothyroidism, unspecified; F17.210 Nicotine dependence, cigarettes, uncomplicated; D69.6 Thrombocytopenia, unspecified; N18.30 Chronic kidney disease, stage 3 unspecified; K75.81 Nonalcoholic steatohepatitis (NASH); Z66 Do not resuscitate; E11.22 Type 2 diabetes mellitus with diabetic chronic kidney disease; D63.1 Anemia in chronic kidney disease; Z98.890 Other specified postprocedural states; Z88.8 Allergy status to other drugs, medicaments and biological substances; Z91.148 Patient's other noncompliance with medication regimen for other reason; Z79.4 Long term (current) use of insulin; Z79.899 Other long term (current) drug therapy
CPT/HCPCS: 36415; 36416; 51701; 70450; 71045; 80053; 80306; 80307; 81001; 82140; 83605; 84484; 85025; 86850; 86900; 86901; 87040; 93005; 94760; 96361; 96374; J2405

== ENCOUNTER 2023-11-14 11:53 | Inpatient (IN) | payer OTHER ==
[2023-11-14 13:12] LABS: #Eosinphils 0.1 thou/uL (0.0-0.7); #Monocytes 0.4 thou/uL (0.11-0.59); #Neutrophils 5.2 thou/uL (1.40-6.50); %Basophils 0.3 % (0.0-1.0); %Eosinophils 1.1 % (0.0-10.0); %Lymphocytes 18.1 % (21.0-51.0); %Neutrophils 74.1 % (42.0-75.0); Hematocrit 32.2 % (42.0-52.0); Mean Corpuscular HGB CONC 37.3 g/dL (32.0-36.0); Mean Corpuscular Hemoglobin 34.7 pg (27.0-31.0); Mean Corpuscular Volume 93.1 fl (78.0-98.0); Mean Platelet Volume 9.8 fL (7.4-10.4); Platelet Count 90 10x3/uL (130-400); RBC Distribution Width 13.3 % (11.5-14.5); Red Blood Cell (RBC) Count 3.46 mill/uL (4.70-6.10)
[2023-11-14 13:31] LABS: Troponin I Less than 0.010 ng/mL (< 0.028)
[2023-11-14 13:33] LABS: ALT (SGPT) 25 U/L (8-55); AST (SGOT) 23 U/L (5-34); Albumin 3.1 g/dL (3.4-4.8); Alkaline Phosphatase 169 U/L (40-110); Anion Gap 14 mmol/L (10-20); BUN (Urea Nitrogen) 18 mg/dL (8.4-25.7); Bilirubin, Total 2.5 mg/dL (0.2-1.2); Calc. Creatinine Clearance 0 mL/min (70-130); Calcium 8.6 mg/dL (7.8-10.44); Carbon Dioxide 17 mmol/L (23-31); Chloride 110 mmol/L (98-107); Estimated GFR 54; Globulin 3.5 g/dL (2.4-3.5); Glucose 248 mg/dL (83-110); Lipase 22 U/L (8-78); Magnesium 1.4 mg/dL (1.6-2.6); Potassium 4.4 mmol/L (3.5-5.1); Protein, Total 6.6 g/dL (5.8-8.1); Sodium 137 mmol/L (136-145)
[2023-11-14 13:44] LABS: INR-International Normal Ratio 1.4; PTT 33.3 sec (22.9-36.1); Prothrombin Time 17.1 sec (12.0-14.7)
[2023-11-14] MEDS ORDERED: Iopamidol-370 76% 500 ML MDV (1 ML CHARGE) ONE (13:50)
[2023-11-14] MEDS ORDERED: Dextrose 5% in Water 1,000 ML IV PRN (14:52)
[2023-11-14] MEDS ORDERED: Glucagon 1 MG/ML KIT IM PRN (14:52)
[2023-11-14] MEDS ORDERED: HumaLOG 300 UNITS/3 ML VIAL SC PRN (14:52)
[2023-11-14] MEDS ORDERED: Dextrose 50% Abboject 50 ML SYRINGE SLOW IVP PRN (14:52)
[2023-11-14] MEDS ORDERED: Lactulose 20 GM (30 mL) UDCUP ONE (14:59)
[2023-11-14] MEDS ORDERED: Sodium Chloride 0.9% 500 ML IV SCH (15:00)
[2023-11-14 15:35] LABS: Bacteria/HPF None Seen HPF (None Seen); Bilirubin Negative (Negative); Blood, Urine Negative (Negative); CAUTI Indications for Culture Alt mental st,lethar; Clarity Clear (Clear); Glucose, Urine (Dipstick) >=1000 mg/dL (Negative); Ketone, Urine Negative (Negative); Leukocyte Negative Leu/uL (Negative); Nitrite Negative (Negative); Protein, Urine (Dipstick) Negative (Neg-Trace); RBC/HPF 0-3 HPF (0-3); Specific Gravity, Urine 1.037 (1.002-1.036); Squamous Epithelial 0-3 HPF (0-3); Urobilinogen Normal mg/dL (Less than 2); WBC/HPF 0-3 HPF (0-3)
[2023-11-14 15:38] LABS: Urine Culture Reflex No No
[2023-11-14] MEDS: Lactulose 20 GM (30 mL) UDCUP PO SCH ×2 (16:45→21:15)
[2023-11-14] MEDS: Rifaximin 550 MG TAB PO SCH (21:15)
[2023-11-14] MEDS: Sodium Bicarbonate Tab 325 MG TAB PO SCH (21:15)
[2023-11-15] MEDS: Levothyroxine 150 MCG TAB PO SCH (05:44)
[2023-11-15 06:22] LABS: #Eosinphils 0.1 thou/uL (0.0-0.7); #Monocytes 0.7 thou/uL (0.11-0.59); #Neutrophils 4.4 thou/uL (1.40-6.50); %Basophils 0.3 % (0.0-1.0); %Eosinophils 1.4 % (0.0-10.0); %Lymphocytes 27.5 % (21.0-51.0); %Monocytes 9.9 % (0.0-10.0); %Neutrophils 60.5 % (42.0-75.0); Hematocrit 31.1 % (42.0-52.0); Hemoglobin 11.2 g/dL (14.0-18.0); Mean Corpuscular Hemoglobin 33.6 pg (27.0-31.0); Mean Corpuscular Volume 93.4 fl (78.0-98.0); Platelet Count 92 10x3/uL (130-400); RBC Distribution Width 13.6 % (11.5-14.5); Red Blood Cell (RBC) Count 3.33 mill/uL (4.70-6.10); White Blood Cell (WBC) Count 7.3 10x3/uL (4.8-10.8)
[2023-11-15 06:35] LABS: INR-International Normal Ratio 1.5; Prothrombin Time 17.7 sec (12.0-14.7)
[2023-11-15 06:42] LABS: ALT (SGPT) 22 U/L (8-55); AST (SGOT) 26 U/L (5-34); Alkaline Phosphatase 129 U/L (40-110); Anion Gap 13 mmol/L (10-20); BUN (Urea Nitrogen) 17 mg/dL (8.4-25.7); Bilirubin, Total 3.1 mg/dL (0.2-1.2); Calc. Creatinine Clearance 50 mL/min (70-130); Calcium 8.5 mg/dL (7.8-10.44); Carbon Dioxide 16 mmol/L (23-31); Chloride 116 mmol/L (98-107); Estimated GFR 53; Globulin 3.2 g/dL (2.4-3.5); Glucose 155 mg/dL (83-110); Potassium 3.5 mmol/L (3.5-5.1); Protein, Total 6.2 g/dL (5.8-8.1); Sodium 141 mmol/L (136-145)
[2023-11-15] MEDS: Sodium Bicarbonate Tab 325 MG TAB PO SCH ×3 (08:57→19:49)
[2023-11-15] MEDS: Rifaximin 550 MG TAB PO SCH ×2 (08:57→19:49)
[2023-11-15] MEDS: Lactulose 20 GM (30 mL) UDCUP PO SCH ×4 (08:59→19:49)
[2023-11-16] MEDS: Levothyroxine 150 MCG TAB PO SCH (05:30)
[2023-11-16 07:54] VITALS: TEMP 98.7
[2023-11-16] MEDS: Sodium Bicarbonate Tab 325 MG TAB PO SCH (09:11)
[2023-11-16] MEDS: Lactulose 20 GM (30 mL) UDCUP PO SCH ×2 (09:11→12:26)
[2023-11-16] MEDS: Rifaximin 550 MG TAB PO SCH (09:11)
[2023-11-16 12:17] VITALS: BP 123/81
[2023-11-17] MEDS ORDERED: FLU VACC QS2023(65UP)/MF59C/PF 60 MCG/0.5 ML SYRINGE IM ONE (09:00)
== END 2023-11-16 13:41 | disposition home or self-care (01) | DRG 442 ==
LOC: ERS 11:53 → T4-B 15:37
PROVIDERS: ADMIT Internal Medicine; ATTEND Hospitalist
DX: K76.82 Hepatic encephalopathy (principal); E87.20 Acidosis, unspecified; N17.9 Acute kidney failure, unspecified; E03.9 Hypothyroidism, unspecified; B19.20 Unspecified viral hepatitis C without hepatic coma; K74.60 Unspecified cirrhosis of liver; K75.81 Nonalcoholic steatohepatitis (NASH); E11.22 Type 2 diabetes mellitus with diabetic chronic kidney disease; N18.30 Chronic kidney disease, stage 3 unspecified; D63.1 Anemia in chronic kidney disease; N53.9 Unspecified male sexual dysfunction; D69.6 Thrombocytopenia, unspecified; K75.4 Autoimmune hepatitis; E86.0 Dehydration; E80.6 Other disorders of bilirubin metabolism; Z88.8 Allergy status to other drugs, medicaments and biological substances; Z79.4 Long term (current) use of insulin; Z79.890 Hormone replacement therapy; Z79.899 Other long term (current) drug therapy; Z98.890 Other specified postprocedural states
CPT/HCPCS: 36415; 36416; 70450; 71045; 74177; 80053; 81001; 82140; 83690; 83735; 84484; 85025; 85610; 85730; 93005; 96360; J1815; J7030; Q9967

== ENCOUNTER 2023-12-21 10:52 | Inpatient (IN) | payer MEDICARE, OTHER ==
[2023-12-21 11:36] LABS: #Eosinphils 0.1 thou/uL (0.0-0.7); #Monocytes 0.6 thou/uL (0.11-0.59); #Neutrophils 6.2 thou/uL (1.40-6.50); %Basophils 0.2 % (0.0-1.0); %Eosinophils 0.8 % (0.0-10.0); %Monocytes 6.5 % (0.0-10.0); %Neutrophils 69.3 % (42.0-75.0); Hematocrit 37.9 % (42.0-52.0); Hemoglobin 13.6 g/dL (14.0-18.0); Mean Corpuscular HGB CONC 35.9 g/dL (32.0-36.0); Mean Corpuscular Hemoglobin 34.4 pg (27.0-31.0); Mean Corpuscular Volume 95.9 fl (78.0-98.0); Mean Platelet Volume 9.9 fL (7.4-10.4); Platelet Count 112 10x3/uL (130-400); RBC Distribution Width 13.8 % (11.5-14.5); Red Blood Cell (RBC) Count 3.95 mill/uL (4.70-6.10)
[2023-12-21 11:48] LABS: INR-International Normal Ratio 1.2; PTT 28.9 sec (22.9-36.1); Prothrombin Time 15.7 sec (12.0-14.7)
[2023-12-21 11:51] LABS: ALT (SGPT) 51 U/L (8-55); AST (SGOT) 34 U/L (5-34); Albumin 3.1 g/dL (3.4-4.8); Alkaline Phosphatase 196 U/L (40-110); Anion Gap 14 mmol/L (10-20); BUN (Urea Nitrogen) 29 mg/dL (8.4-25.7); Bilirubin, Total 2.1 mg/dL (0.2-1.2); Calc. Creatinine Clearance 0 mL/min (70-130); Calcium 8.9 mg/dL (7.8-10.44); Carbon Dioxide 18 mmol/L (23-31); Chloride 109 mmol/L (98-107); Estimated GFR 44; Globulin 3.7 g/dL (2.4-3.5); Glucose 301 mg/dL (83-110); Lipase 40 U/L (8-78); Potassium 4.6 mmol/L (3.5-5.1); Protein, Total 6.8 g/dL (5.8-8.1); Sodium 136 mmol/L (136-145)
[2023-12-21 11:54] LABS: Troponin I 0.021 ng/mL (< 0.028)
[2023-12-21 12:31] LABS: Influenza A by NAA Not Detected (NotDetected); Influenza B by NAA Not Detected (NotDetected); SARS-CoV-2 NAA Rapid Test Not Detected (NotDetected)
[2023-12-21 12:48] LABS: Bacteria/HPF None Seen HPF (None Seen); Bilirubin Negative (Negative); Blood, Urine Negative (Negative); CAUTI Indications for Culture Alt mental st,lethar; Clarity Clear (Clear); Glucose, Urine (Dipstick) Greater than 1000 mg/dL (Negative); Ketone, Urine Negative (Negative); Leukocyte Negative Leu/uL (Negative); Nitrite Negative (Negative); Protein, Urine (Dipstick) Negative (Neg-Trace); RBC/HPF 0-3 HPF (0-3); Specific Gravity, Urine 1.024 (1.002-1.036); Squamous Epithelial None Seen HPF (0-3); Urobilinogen 3 mg/dL (Less than 2); WBC/HPF 0-3 HPF (0-3); pH, Urine 6.5 (5.0-9.0)
[2023-12-21 12:51] LABS: Urine Culture Reflex No No
[2023-12-21] MEDS ORDERED: Lactulose 20 GM (30 mL) UDCUP ONE (13:32)
[2023-12-21] MEDS ORDERED: Ondansetron ODT 4 MG TAB PO PRN (13:50)
[2023-12-21] MEDS ORDERED: Acetaminophen 650 MG Suppository PR PRN (13:50)
[2023-12-21] MEDS ORDERED: Dextrose 5% in Water 1,000 ML IV PRN (13:56)
[2023-12-21] MEDS ORDERED: Dextrose 50% Abboject 50 ML SYRINGE SLOW IVP PRN (13:56)
[2023-12-21] MEDS ORDERED: Glucagon 1 MG/ML KIT IM PRN (13:56)
[2023-12-21] MEDS ORDERED: Sodium Bicarbonate Tab 325 MG TAB ONE (15:36)
[2023-12-21] MEDS: Sodium Bicarbonate Tab 325 MG TAB PO SCH (15:48)
[2023-12-21] MEDS: Lactulose 20 GM (30 mL) UDCUP PO SCH (18:13)
[2023-12-21] MEDS ORDERED: Lactulose 20 GM (30 mL) UDCUP PR SCH (18:44)
[2023-12-21] MEDS: Sodium Bicarb 50 mEq/50 ML VIAL IVP SCH (20:39)
[2023-12-21] MEDS: Rifaximin 550 MG TAB PO SCH (21:00)
[2023-12-21] MEDS: Lactulose 10 GM/15 ML Oral Solution PR SCH (21:00)
[2023-12-21] MEDS: HumaLOG 300 UNITS/3 ML VIAL SC PRN (23:58)
[2023-12-22] MEDS: Levothyroxine Sodium 125 MCG TAB PO SCH (06:05)
[2023-12-22 08:19] LABS: #Eosinphils 0.1 thou/uL (0.0-0.7); #Monocytes 0.9 thou/uL (0.11-0.59); #Neutrophils 7.8 thou/uL (1.40-6.50); %Basophils 0.2 % (0.0-1.0); %Lymphocytes 17.3 % (21.0-51.0); %Monocytes 8.7 % (0.0-10.0); %Neutrophils 72.2 % (42.0-75.0); Hematocrit 37.5 % (42.0-52.0); Hemoglobin 13.3 g/dL (14.0-18.0); Mean Corpuscular HGB CONC 35.5 g/dL (32.0-36.0); Mean Corpuscular Hemoglobin 34.2 pg (27.0-31.0); Mean Corpuscular Volume 96.4 fl (78.0-98.0); Mean Platelet Volume 9.6 fL (7.4-10.4); Platelet Count 130 10x3/uL (130-400); RBC Distribution Width 14.2 % (11.5-14.5); Red Blood Cell (RBC) Count 3.89 mill/uL (4.70-6.10); White Blood Cell (WBC) Count 10.9 10x3/uL (4.8-10.8)
[2023-12-22 08:37] LABS: Phosphorus 3.2 mg/dL (2.3-4.7)
[2023-12-22 08:47] LABS: ALT (SGPT) 41 U/L (8-55); AST (SGOT) 24 U/L (5-34); Albumin 3.2 g/dL (3.4-4.8); Alkaline Phosphatase 169 U/L (40-110); Anion Gap 13 mmol/L (10-20); BUN (Urea Nitrogen) 33 mg/dL (8.4-25.7); Bilirubin, Total 3.7 mg/dL (0.2-1.2); Calc. Creatinine Clearance 39 mL/min (70-130); Calcium 9.1 mg/dL (7.8-10.44); Carbon Dioxide 18 mmol/L (23-31); Chloride 110 mmol/L (98-107); Estimated GFR 38; Globulin 3.7 g/dL (2.4-3.5); Glucose 192 mg/dL (83-110); Magnesium 1.7 mg/dL (1.6-2.6); Potassium 3.8 mmol/L (3.5-5.1); Protein, Total 6.9 g/dL (5.8-8.1); Sodium 137 mmol/L (136-145)
[2023-12-22] MEDS ORDERED: Levothyroxine 150 MCG TAB PO SCH (09:00)
[2023-12-22] MEDS ORDERED: Furosemide 20 MG TAB PO SCH (09:00)
[2023-12-22] MEDS: Sodium Chloride 0.9% 1,000 ML IV SCH (09:06)
[2023-12-22] MEDS: Insulin Glargine 30 UNITS/0.3 ML VIAL SC SCH (09:06)
[2023-12-22] MEDS: Spironolactone 25 MG TAB PO SCH (09:07)
[2023-12-22] MEDS: Lactulose 20 GM (30 mL) UDCUP PO SCH (10:58)
[2023-12-22] MEDS: Ondansetron PF 4 MG/2 ML Vial IVP PRN (12:52)
[2023-12-22] MEDS: FLU VACC QS2023(65UP)/MF59C/PF 60 MCG/0.5 ML SYRINGE IM ONE (12:53)
[2023-12-22] MEDS: Sodium Bicarbonate Tab 325 MG TAB PO SCH (16:19)
[2023-12-22] MEDS: Magnesium 2 GM/50 ML(in water) 2 GM in Premix 1 BAG IVPB SCH (16:22)
[2023-12-23 06:30] LABS: #Monocytes 1.5 thou/uL (0.11-0.59); #Neutrophils 20.8 thou/uL (1.40-6.50); %Basophils 0.2 % (0.0-1.0); %Eosinophils 0.1 % (0.0-10.0); %Lymphocytes 4.7 % (21.0-51.0); %Monocytes 6.1 % (0.0-10.0); %Neutrophils 86.9 % (42.0-75.0); Hematocrit 33.5 % (42.0-52.0); Hemoglobin 11.8 g/dL (14.0-18.0); Mean Corpuscular HGB CONC 35.2 g/dL (32.0-36.0); Mean Corpuscular Hemoglobin 34.4 pg (27.0-31.0); Mean Corpuscular Volume 97.7 fl (78.0-98.0); Mean Platelet Volume 9.8 fL (7.4-10.4); RBC Distribution Width 14.3 % (11.5-14.5); Red Blood Cell (RBC) Count 3.43 mill/uL (4.70-6.10); White Blood Cell (WBC) Count 23.9 10x3/uL (4.8-10.8)
[2023-12-23 06:37] LABS: Platelet Count 82 10x3/uL (130-400)
[2023-12-23 06:44] LABS: ALT (SGPT) 33 U/L (8-55); AST (SGOT) 20 U/L (5-34); Albumin 2.8 g/dL (3.4-4.8); Alkaline Phosphatase 140 U/L (40-110); Anion Gap 14 mmol/L (10-20); BUN (Urea Nitrogen) 40 mg/dL (8.4-25.7); Bilirubin, Total 3.4 mg/dL (0.2-1.2); Calc. Creatinine Clearance 39 mL/min (70-130); Calcium 8.3 mg/dL (7.8-10.44); Carbon Dioxide 17 mmol/L (23-31); Chloride 112 mmol/L (98-107); Estimated GFR 38; Globulin 3.2 g/dL (2.4-3.5); Glucose 290 mg/dL (83-110); Potassium 4.3 mmol/L (3.5-5.1); Sodium 139 mmol/L (136-145)
[2023-12-23 14:31] VITALS: BMI 27.9
[2023-12-24 05:02] LABS: Hematocrit 27.3 % (42.0-52.0); Hemoglobin 9.9 g/dL (14.0-18.0); Manual Diff?? YES; Mean Corpuscular HGB CONC 36.3 g/dL (32.0-36.0); Mean Corpuscular Hemoglobin 35.1 pg (27.0-31.0); Mean Corpuscular Volume 96.8 fl (78.0-98.0); Mean Platelet Volume 9.8 fL (7.4-10.4); Red Blood Cell (RBC) Count 2.82 mill/uL (4.70-6.10); White Blood Cell (WBC) Count 21.7 10x3/uL (4.8-10.8)
[2023-12-24 05:05] LABS: Delete Auto Diff?? YES; Platelet Count 68 10x3/uL (130-400)
[2023-12-24 05:48] LABS: Band 6 % (5-11); CellaVision Operator ID lab.abc; Lymphocytes 4 % (21-51); Monocytes 1 % (0-10); Neutrophil 89 % (42-75); Platelet Adequacy Comment Platelets Decreased; Polychromasia SLIGHT = 2-3 cells HPF (0-2); RBC Morphology Within Normal Limits; Total Cell Count 100
[2023-12-24 06:03] LABS: ALT (SGPT) 27 U/L (8-55); AST (SGOT) 20 U/L (5-34); Albumin 2.5 g/dL (3.4-4.8); Alkaline Phosphatase 120 U/L (40-110); Anion Gap 14 mmol/L (10-20); BUN (Urea Nitrogen) 41 mg/dL (8.4-25.7); Bilirubin, Total 4.2 mg/dL (0.2-1.2); Calc. Creatinine Clearance 43 mL/min (70-130); Calcium 7.8 mg/dL (7.8-10.44); Carbon Dioxide 18 mmol/L (23-31); Chloride 105 mmol/L (98-107); Estimated GFR 42; Globulin 2.9 g/dL (2.4-3.5); Glucose 169 mg/dL (83-110); Potassium 4.1 mmol/L (3.5-5.1); Protein, Total 5.4 g/dL (5.8-8.1); Sodium 133 mmol/L (136-145)
[2023-12-24] MEDS ORDERED: guaiFENesin ER 600 MG TAB PO SCH (10:26)
[2023-12-24] MEDS ORDERED: LevoFLOXacin 500 MG TAB PO SCH (10:26)
[2023-12-24] MEDS: guaiFENesin ER 600 MG TAB PO SCH ×2 (11:12→20:57)
[2023-12-24] MEDS: LevoFLOXacin 500 MG TAB PO SCH (11:12)
[2023-12-24 13:26] LABS: Bacteria/HPF None Seen HPF (None Seen); Bilirubin Negative (Negative); Blood, Urine Negative (Negative); CAUTI Indications for Culture Fever or rigors; Clarity Clear (Clear); Glucose, Urine (Dipstick) >=1000 mg/dL (Negative); Ketone, Urine Negative (Negative); Leukocyte 250 Leu/uL (Negative); Nitrite Negative (Negative); Protein, Urine (Dipstick) 10 mg/dL (Neg-Trace); RBC/HPF 0-3 HPF (0-3); Specific Gravity, Urine 1.019 (1.002-1.036); Squamous Epithelial 0-3 HPF (0-3); Urobilinogen Normal mg/dL (Less than 2); WBC/HPF 21-50 HPF (0-3); pH, Urine 5.5 (5.0-9.0)
[2023-12-24 13:31] LABS: Urine Culture Reflex Yes Yes
[2023-12-24] MEDS: Acetaminophen 325 MG TAB PO PRN (13:57)
[2023-12-24] MEDS ORDERED: Lidocaine 4% Patch TD SCH (16:00)
[2023-12-24] MEDS: Lidocaine 4% Patch TD SCH (16:28)
[2023-12-25] MEDS: Melatonin 3 MG TAB PO PRN (01:42)
[2023-12-25] MEDS: Benzonatate 100 MG CAP PO PRN (01:42)
[2023-12-25 04:25] LABS: #Eosinphils 0.1 thou/uL (0.0-0.7); #Monocytes 1.1 thou/uL (0.11-0.59); #Neutrophils 13.6 thou/uL (1.40-6.50); %Basophils 0.2 % (0.0-1.0); %Eosinophils 0.4 % (0.0-10.0); %Lymphocytes 7.5 % (21.0-51.0); %Monocytes 6.3 % (0.0-10.0); %Neutrophils 81.3 % (42.0-75.0); Hematocrit 24.3 % (42.0-52.0); Mean Corpuscular Volume 94.6 fl (78.0-98.0); Mean Platelet Volume 10.3 fL (7.4-10.4); RBC Distribution Width 13.6 % (11.5-14.5); Red Blood Cell (RBC) Count 2.57 mill/uL (4.70-6.10); White Blood Cell (WBC) Count 16.7 10x3/uL (4.8-10.8)
[2023-12-25] MEDS: LevoFLOXacin 500 MG TAB PO SCH (04:39)
[2023-12-25] MEDS: guaiFENesin/Codeine 200 mg/20 mg 10 ml Cup PO PRN (04:40)
[2023-12-25] MEDS: Transdermal Patch Removal TOP SCH (04:40)
[2023-12-25 05:05] LABS: Platelet Count 72 10x3/uL (130-400)
[2023-12-25 05:20] LABS: ALT (SGPT) 23 U/L (8-55); AST (SGOT) 20 U/L (5-34); Albumin 2.4 g/dL (3.4-4.8); Alkaline Phosphatase 128 U/L (40-110); Anion Gap 10 mmol/L (10-20); BUN (Urea Nitrogen) 41 mg/dL (8.4-25.7); Bilirubin, Total 3.9 mg/dL (0.2-1.2); Calc. Creatinine Clearance 48 mL/min (70-130); Calcium 7.7 mg/dL (7.8-10.44); Carbon Dioxide 21 mmol/L (23-31); Chloride 101 mmol/L (98-107); Estimated GFR 48; Globulin 2.7 g/dL (2.4-3.5); Glucose 144 mg/dL (83-110); Potassium 3.8 mmol/L (3.5-5.1); Protein, Total 5.1 g/dL (5.8-8.1); Sodium 128 mmol/L (136-145)
[2023-12-25] MEDS ORDERED: Lidocaine 4% Patch TD SCH (09:00)
[2023-12-25] MEDS: traMADol HCl 50 MG TAB PO PRN (13:21)
[2023-12-25 20:25] VITALS: TEMP 98.2
[2023-12-26 06:11] LABS: #Eosinphils 0.1 thou/uL (0.0-0.7); #Neutrophils 8.7 thou/uL (1.40-6.50); %Basophils 0.3 % (0.0-1.0); %Eosinophils 0.8 % (0.0-10.0); %Lymphocytes 9.5 % (21.0-51.0); %Monocytes 9.2 % (0.0-10.0); %Neutrophils 78.9 % (42.0-75.0); Hematocrit 28.9 % (42.0-52.0); Hemoglobin 10.4 g/dL (14.0-18.0); Mean Corpuscular Hemoglobin 34.3 pg (27.0-31.0); Mean Corpuscular Volume 95.4 fl (78.0-98.0); Mean Platelet Volume 9.7 fL (7.4-10.4); Platelet Count 92 10x3/uL (130-400); RBC Distribution Width 14.1 % (11.5-14.5); Red Blood Cell (RBC) Count 3.03 mill/uL (4.70-6.10)
[2023-12-26 06:36] LABS: ALT (SGPT) 25 U/L (8-55); AST (SGOT) 23 U/L (5-34); Albumin 2.6 g/dL (3.4-4.8); Alkaline Phosphatase 153 U/L (40-110); Anion Gap 14 mmol/L (10-20); BUN (Urea Nitrogen) 37 mg/dL (8.4-25.7); Bilirubin, Total 3.1 mg/dL (0.2-1.2); Calc. Creatinine Clearance 44 mL/min (70-130); Carbon Dioxide 21 mmol/L (23-31); Chloride 102 mmol/L (98-107); Estimated GFR 43; Globulin 3.2 g/dL (2.4-3.5); Glucose 227 mg/dL (83-110); Potassium 3.9 mmol/L (3.5-5.1); Protein, Total 5.8 g/dL (5.8-8.1); Sodium 133 mmol/L (136-145)
[2023-12-26 08:24] VITALS: BP 98/62
== END 2023-12-26 12:54 | disposition home or self-care (01) | DRG 441 ==
LOC: SUATTDRO 10:52 → ERS 10:52 → ERHOLD 13:50 → 2SE 17:26 → T4-A 12-22 14:38
PROVIDERS: ADMIT Family Medicine; ATTEND Family Medicine
PROC: 0T9B70Z Drainage of Bladder with Drainage Device, Via Natural or Artificial Opening (ICD-10-PCS; principal; 2023-12-21)
DX: K76.82 Hepatic encephalopathy (principal); G92.8 Other toxic encephalopathy; E87.20 Acidosis, unspecified; N17.9 Acute kidney failure, unspecified; Z88.8 Allergy status to other drugs, medicaments and biological substances; Z79.4 Long term (current) use of insulin; Z79.899 Other long term (current) drug therapy; E11.9 Type 2 diabetes mellitus without complications; E03.9 Hypothyroidism, unspecified; Z98.890 Other specified postprocedural states; F17.210 Nicotine dependence, cigarettes, uncomplicated; K74.60 Unspecified cirrhosis of liver; N18.30 Chronic kidney disease, stage 3 unspecified; E83.42 Hypomagnesemia; J20.9 Acute bronchitis, unspecified
CPT/HCPCS: 36415; 36416; 51701; 70496; 70498; 71045; 71046; 74018; 80053; 81001; 82140; 82274; 83690; 83735; 84100; 84443; 84484; 85025; 85610; 85730; 87040; 87086; 93005; J1815; J2405; J3475; J7050

== ENCOUNTER 2024-03-05 06:47 | Day surgery (SDC) | payer MEDICARE ==
[2024-03-04 12:13] VITALS: BMI 28.1
[2024-03-05] MEDS ORDERED: PROPOFOL 20 ML ONE (08:48)
[2024-03-05] MEDS ORDERED: Ketamine In 0.9 % NaCl 50 MG/5 ML SYRINGE ONE (08:48)
== END 2024-03-05 10:15 | disposition home or self-care (01) ==
LOC: SDC 06:47
PROVIDERS: ATTEND Internal Medicine
PROC: 0DJ08ZZ Inspection of Upper Intestinal Tract, Via Natural or Artificial Opening Endoscopic (ICD-10-PCS; principal; 2024-03-05)
DX: K74.60 Unspecified cirrhosis of liver (principal); K76.6 Portal hypertension; E11.9 Type 2 diabetes mellitus without complications; E07.9 Disorder of thyroid, unspecified; K76.82 Hepatic encephalopathy; K75.81 Nonalcoholic steatohepatitis (NASH); Z79.890 Hormone replacement therapy; Z79.4 Long term (current) use of insulin; Z88.8 Allergy status to other drugs, medicaments and biological substances; Z87.891 Personal history of nicotine dependence
CPT/HCPCS: 36416; J2704; J3490

== ENCOUNTER 2024-04-20 13:39 | Emergency (ER) | payer MEDICARE ==
[2024-04-20 14:34] LABS: #Basophils Less than 0.03 10x3/uL (0.0-0.2); %Basophils 0.3 % (0.0-1.0); %Eosinophils 1.3 % (0.0-10.0); %Lymphocytes 18.2 % (21.0-51.0); %Monocytes 7.8 % (0.0-10.0); %Neutrophils 71.7 % (42.0-75.0); Hematocrit 34.4 % (42.0-52.0); Hemoglobin 12.1 g/dL (14.0-18.0); Mean Corpuscular HGB CONC 35.2 g/dL (32.0-36.0); Mean Corpuscular Hemoglobin 33.2 pg (27.0-31.0); Mean Corpuscular Volume 94.2 fL (78.0-98.0); Mean Platelet Volume 9.9 fL (7.4-10.4); Platelet Count 69 10x3/uL (130-400); RBC Distribution Width 14.3 % (11.5-14.5); Red Blood Cell (RBC) Count 3.65 mill/uL (4.70-6.10)
[2024-04-20] MEDS ORDERED: Ondansetron PF 4 MG/2 ML Vial ONE (14:44)
[2024-04-20 14:46] LABS: ALT (SGPT) 20 U/L (8-55); AST (SGOT) 29 U/L (5-34); Alkaline Phosphatase 128 U/L (40-110); Anion Gap 16 mmol/L (10-20); BUN (Urea Nitrogen) 19 mg/dL (8.4-25.7); Bilirubin, Total 2.9 mg/dL (0.2-1.2); Calc. Creatinine Clearance 0 mL/min (70-130); Calcium 8.6 mg/dL (7.8-10.44); Carbon Dioxide 17 mmol/L (23-31); Chloride 114 mmol/L (98-107); Estimated GFR 55; Globulin 3.3 g/dL (2.4-3.5); Glucose 209 mg/dL (83-110); Lipase 21 U/L (8-78); Magnesium 1.2 mg/dL (1.6-2.6); Potassium 3.9 mmol/L (3.5-5.1); Protein, Total 6.3 g/dL (5.8-8.1); Sodium 143 mmol/L (136-145)
[2024-04-20 14:49] LABS: Troponin I Less than 0.010 ng/mL (< 0.028)
[2024-04-20] MEDS ORDERED: Lactulose 20 GM (30 mL) UDCUP ONE (14:55)
[2024-04-20] MEDS ORDERED: Magnesium 2 GM/50 ML BAG (IN WATER) ONE (14:56)
[2024-04-20 17:58] LABS: Bilirubin Negative (Negative); Blood, Urine Negative (Negative); CAUTI Indications for Culture Alt mental st,lethar; Clarity Clear (Clear); Glucose, Urine (Dipstick) 70 mg/dL (Negative); Ketone, Urine Trace mg/dL (Negative); Leukocyte 25 Leu/uL (Negative); Nitrite Negative (Negative); Protein, Urine (Dipstick) 20 mg/dL (Neg-Trace); RBC/HPF 0-3 HPF (0-3); Specific Gravity, Urine 1.024 (1.002-1.036); Squamous Epithelial 0-3 HPF (0-3); Urobilinogen 3 mg/dL (Less than 2); pH, Urine 6.5 (5.0-9.0)
[2024-04-20 18:02] LABS: Bacteria/HPF Rare-Few HPF (None Seen)
[2024-04-20 18:03] LABS: Urine Culture Reflex Yes Yes
== END 2024-04-20 17:45 | disposition home or self-care (01) ==
LOC: ERS 13:39
DX: K74.60 Unspecified cirrhosis of liver (principal); K76.82 Hepatic encephalopathy; E83.42 Hypomagnesemia; E11.9 Type 2 diabetes mellitus without complications
CPT/HCPCS: 80053; 81001; 82140; 83690; 83735; 83880; 84484; 85025; 87086; 93005; 94760; J2405; J3475; 36415; 87077; 87186; 96365

== ENCOUNTER 2024-05-10 16:04 | Inpatient (IN) | payer MEDICARE ==
[2024-05-10 17:00] LABS: #Basophils Less than 0.03 10x3/uL (0.0-0.2); %Basophils 0.3 % (0.0-1.0); %Eosinophils 1.8 % (0.0-10.0); %Lymphocytes 26.6 % (21.0-51.0); %Monocytes 6.5 % (0.0-10.0); %Neutrophils 64.5 % (42.0-75.0); Hematocrit 35.4 % (42.0-52.0); Hemoglobin 12.7 g/dL (14.0-18.0); Mean Corpuscular HGB CONC 35.9 g/dL (32.0-36.0); Mean Corpuscular Hemoglobin 33.4 pg (27.0-31.0); Mean Corpuscular Volume 93.2 fL (78.0-98.0); Mean Platelet Volume 10.3 fL (7.4-10.4); Platelet Count 105 10x3/uL (130-400); RBC Distribution Width 13.5 % (11.5-14.5)
[2024-05-10 17:08] LABS: Magnesium 1.5 mg/dL (1.6-2.6)
[2024-05-10 17:09] LABS: ALT (SGPT) 26 U/L (8-55); AST (SGOT) 34 U/L (5-34); Acetaminophen Less than 10 mcg/mL (10.0-30.0); Albumin 3.2 g/dL (3.4-4.8); Alcohol Less than 10.0 mg/dL (Less than 10); Alkaline Phosphatase 151 U/L (40-110); Anion Gap 12 mmol/L (10-20); BUN (Urea Nitrogen) 22 mg/dL (8.4-25.7); Calc. Creatinine Clearance 0 mL/min (70-130); Carbon Dioxide 19 mmol/L (23-31); Chloride 111 mmol/L (98-107); Estimated GFR 47; Globulin 3.5 g/dL (2.4-3.5); Glucose 180 mg/dL (83-110); Potassium 4.2 mmol/L (3.5-5.1); Protein, Total 6.7 g/dL (5.8-8.1); Salicylate Less than 8.0 mg/dL (15.0-30.0); Sodium 138 mmol/L (136-145)
[2024-05-10 17:13] LABS: Troponin I Less than 0.010 ng/mL (< 0.028)
[2024-05-10 17:20] LABS: Platelet Adequacy Comment Platelets Decreased; Polychromasia SLIGHT = 2-3 cells HPF (0-2)
[2024-05-10] MEDS ORDERED: Lactulose 20 GM (30 mL) UDCUP ONE (17:24)
[2024-05-10] MEDS ORDERED: Magnesium 2 GM/50 ML BAG (IN WATER) ONE (17:25)
[2024-05-10] MEDS ORDERED: Dextrose 5% in Water 1,000 ML IV PRN (17:32)
[2024-05-10] MEDS ORDERED: Ondansetron ODT 4 MG TAB PO PRN (17:32)
[2024-05-10] MEDS ORDERED: HumaLOG 300 UNITS/3 ML VIAL SC PRN ×2 (17:32)
[2024-05-10] MEDS ORDERED: Acetaminophen 325 MG TAB PO PRN (17:32)
[2024-05-10] MEDS ORDERED: Dextrose 50% Abboject 50 ML SYRINGE SLOW IVP PRN (17:32)
[2024-05-10] MEDS ORDERED: Glucagon 1 MG/ML KIT IM PRN (17:32)
[2024-05-10] MEDS ORDERED: Insulin Lispro 100 UNIT/ML 10 ML VIAL SC PRN (17:45)
[2024-05-10 20:16] VITALS: BMI 29.0
[2024-05-10] MEDS: Lactulose 20 GM (30 mL) UDCUP PO SCH (21:39)
[2024-05-10] MEDS: Tamsulosin HCl 0.4 MG CAP PO SCH (21:39)
[2024-05-10] MEDS: Ondansetron PF 4 MG/2 ML Vial IVP PRN (21:54)
[2024-05-11] MEDS: Levothyroxine Sodium 75 MCG TAB PO SCH (05:49)
[2024-05-11 07:01] LABS: #Basophils Less than 0.03 10x3/uL (0.0-0.2); %Basophils 0.3 % (0.0-1.0); %Eosinophils 1.8 % (0.0-10.0); %Lymphocytes 27.5 % (21.0-51.0); %Monocytes 8.1 % (0.0-10.0); %Neutrophils 61.8 % (42.0-75.0); Hematocrit 33.8 % (42.0-52.0); Hemoglobin 12.5 g/dL (14.0-18.0); Mean Corpuscular Hemoglobin 33.2 pg (27.0-31.0); Mean Corpuscular Volume 89.9 fL (78.0-98.0); Platelet Count 104 10x3/uL (130-400); RBC Distribution Width 13.6 % (11.5-14.5); Red Blood Cell (RBC) Count 3.76 mill/uL (4.70-6.10)
[2024-05-11 07:15] LABS: Anion Gap 13 mmol/L (10-20); BUN (Urea Nitrogen) 22 mg/dL (8.4-25.7); Calc. Creatinine Clearance 48 mL/min (70-130); Calcium 8.8 mg/dL (7.8-10.44); Carbon Dioxide 18 mmol/L (23-31); Chloride 113 mmol/L (98-107); Estimated GFR 50; Glucose 136 mg/dL (83-110); Magnesium 1.9 mg/dL (1.6-2.6); Potassium 3.7 mmol/L (3.5-5.1); Sodium 140 mmol/L (136-145)
[2024-05-11] MEDS: Furosemide 20 MG TAB PO SCH (08:06)
[2024-05-11] MEDS: Insulin Glargine 30 UNITS/0.3 ML VIAL SC SCH (08:06)
[2024-05-11] MEDS: Spironolactone 25 MG TAB PO SCH (08:06)
[2024-05-11] MEDS: Magnesium Oxide 400 MG TAB PO SCH (08:06)
[2024-05-11] MEDS: Pantoprazole DR 40 MG TAB PO SCH (08:06)
[2024-05-11 10:15] VITALS: BMI 29.0
[2024-05-11] MEDS: Rifaximin 550 MG TAB PO SCH (20:29)
[2024-05-11] MEDS: Insulin Lispro 100 UNIT/ML 10 ML VIAL SC PRN (20:31)
[2024-05-11] MEDS ORDERED: Rifampin 300 MG CAP PO SCH (22:00)
[2024-05-12 06:12] LABS: #Basophils Less than 0.03 10x3/uL (0.0-0.2); %Basophils 0.3 % (0.0-1.0); %Eosinophils 2.1 % (0.0-10.0); %Lymphocytes 29.7 % (21.0-51.0); %Monocytes 8.6 % (0.0-10.0); %Neutrophils 58.9 % (42.0-75.0); Hematocrit 33.3 % (42.0-52.0); Mean Corpuscular Hemoglobin 33.7 pg (27.0-31.0); Mean Corpuscular Volume 93.5 fL (78.0-98.0); Platelet Count 116 10x3/uL (130-400); RBC Distribution Width 13.6 % (11.5-14.5); Red Blood Cell (RBC) Count 3.56 mill/uL (4.70-6.10)
[2024-05-12 06:53] LABS: Anion Gap 16 mmol/L (10-20); BUN (Urea Nitrogen) 21 mg/dL (8.4-25.7); Calc. Creatinine Clearance 37 mL/min (70-130); Calcium 8.6 mg/dL (7.8-10.44); Carbon Dioxide 19 mmol/L (23-31); Chloride 109 mmol/L (98-107); Estimated GFR 37; Glucose 138 mg/dL (83-110); Magnesium 1.6 mg/dL (1.6-2.6); Potassium 3.6 mmol/L (3.5-5.1); Sodium 140 mmol/L (136-145)
[2024-05-12 08:42] VITALS: BP 104/45; TEMP 98.7
== END 2024-05-12 13:39 | disposition home or self-care (01) | DRG 443 ==
LOC: ERS 16:04 → T4-A 17:31 → OBSVTOIN 05-11 08:11
PROVIDERS: ADMIT Internal Medicine; ATTEND Internal Medicine
DX: K76.82 Hepatic encephalopathy (principal); K74.60 Unspecified cirrhosis of liver; K75.81 Nonalcoholic steatohepatitis (NASH); E03.9 Hypothyroidism, unspecified; E11.22 Type 2 diabetes mellitus with diabetic chronic kidney disease; N18.30 Chronic kidney disease, stage 3 unspecified; N18.31 Chronic kidney disease, stage 3a; E83.42 Hypomagnesemia; Z79.899 Other long term (current) drug therapy; Z79.4 Long term (current) use of insulin; Z79.890 Hormone replacement therapy; Z88.8 Allergy status to other drugs, medicaments and biological substances
CPT/HCPCS: 36415; 36416; 70450; 71045; 80048; 80053; 80307; 82140; 83735; 83880; 84484; 85025; 87040; 93005; 96375; G0378; J1815; J2405; J3475

== ENCOUNTER 2024-08-03 13:14 | Outpatient (CLI) | payer MEDICARE | END 2024-08-03 13:15 | disposition home or self-care (01) | LOC: ULT 13:14 | PROVIDERS: ATTEND Internal Medicine | DX: N17.9 Acute kidney failure, unspecified (principal); N40.1 Benign prostatic hyperplasia with lower urinary tract symptoms; K74.60 Unspecified cirrhosis of liver; R16.1 Splenomegaly, not elsewhere classified | CPT/HCPCS: 76705; 76770 ==

== ENCOUNTER 2024-08-21 03:05 | Emergency (ER) | payer MEDICARE ==
[2024-08-21 04:55] LABS: #Basophils 0.03 10x3/uL (0.0-0.2); %Basophils 0.5 % (0.0-1.0); %Eosinophils 2.1 % (0.0-10.0); %Lymphocytes 28.9 % (21.0-51.0); %Monocytes 8.9 % (0.0-10.0); %Neutrophils 59.1 % (42.0-75.0); ALT (SGPT) 27 U/L (8-55); AST (SGOT) 36 U/L (5-34); Alkaline Phosphatase 179 U/L (40-110); Anion Gap 16 mmol/L (10-20); BUN (Urea Nitrogen) 19 mg/dL (8.4-25.7); Bilirubin, Total 1.5 mg/dL (0.2-1.2); Calc. Creatinine Clearance 0 mL/min (70-130); Calcium 8.6 mg/dL (7.8-10.44); Carbon Dioxide 17 mmol/L (23-31); Chloride 111 mmol/L (98-107); Estimated GFR 49; Globulin 3.3 g/dL (2.4-3.5); Glucose 263 mg/dL (83-110); Hematocrit 33.7 % (42.0-52.0); Lipase 25 U/L (8-78); Magnesium 1.5 mg/dL (1.6-2.6); Mean Corpuscular HGB CONC 35.6 g/dL (32.0-36.0); Mean Corpuscular Hemoglobin 33.3 pg (27.0-31.0); Mean Corpuscular Volume 93.6 fL (78.0-98.0); Platelet Count 80 10x3/uL (130-400); Potassium 3.7 mmol/L (3.5-5.1); Protein, Total 6.3 g/dL (5.8-8.1); Sodium 140 mmol/L (136-145)
[2024-08-21 05:00] LABS: Troponin I Less than 0.010 ng/mL (< 0.028)
[2024-08-21 05:08] LABS: INR-International Normal Ratio 1.4; Prothrombin Time 16.8 sec (12.0-14.7)
[2024-08-21] MEDS ORDERED: Lactulose 20 GM (30 mL) UDCUP ONE (05:25)
[2024-08-21 07:46] LABS: Lactic Acid 2.06 mmol/L (0.5-2.2)
== END 2024-08-21 07:30 | disposition home or self-care (01) ==
LOC: ERS 03:05
DX: E72.4 Disorders of ornithine metabolism (principal); E11.9 Type 2 diabetes mellitus without complications; E03.9 Hypothyroidism, unspecified; Z79.4 Long term (current) use of insulin; Z79.899 Other long term (current) drug therapy
CPT/HCPCS: 36415; 71045; 80053; 82140; 83605; 83690; 83735; 84443; 84484; 85025; 85610; 85730; 93005

== ENCOUNTER 2024-08-23 05:11 | Inpatient (IN) | payer MEDICARE ==
[2024-08-23 06:46] LABS: #Basophils 0.03 10x3/uL (0.0-0.2); %Basophils 0.4 % (0.0-1.0); %Eosinophils 1.6 % (0.0-10.0); %Lymphocytes 13.9 % (21.0-51.0); %Monocytes 7.5 % (0.0-10.0); %Neutrophils 76.2 % (42.0-75.0); Hematocrit 33.3 % (42.0-52.0); Hemoglobin 11.7 g/dL (14.0-18.0); Mean Corpuscular HGB CONC 35.1 g/dL (32.0-36.0); Mean Corpuscular Hemoglobin 32.9 pg (27.0-31.0); Mean Corpuscular Volume 93.5 fL (78.0-98.0); Mean Platelet Volume 10.1 fL (7.4-10.4); Platelet Count 83 10x3/uL (130-400); Red Blood Cell (RBC) Count 3.56 mill/uL (4.70-6.10)
[2024-08-23 07:01] LABS: Lipase 24 U/L (8-78)
[2024-08-23 07:04] LABS: Acetaminophen Less than 10 mcg/mL (Less than 10); Alcohol Less than 10.0 mg/dL (Less than 10); Salicylate Less than 8.0 mg/dL (Less than 8.0)
[2024-08-23 07:05] LABS: ALT (SGPT) 27 U/L (8-55); AST (SGOT) 29 U/L (5-34); Alkaline Phosphatase 166 U/L (40-110); Anion Gap 13 mmol/L (10-20); BUN (Urea Nitrogen) 16 mg/dL (8.4-25.7); Calc. Creatinine Clearance 0 mL/min (70-130); Calcium 8.8 mg/dL (7.8-10.44); Carbon Dioxide 18 mmol/L (23-31); Chloride 112 mmol/L (98-107); Estimated GFR 54; Globulin 3.4 g/dL (2.4-3.5); Glucose 213 mg/dL (83-110); Potassium 3.8 mmol/L (3.5-5.1); Protein, Total 6.4 g/dL (5.8-8.1); Sodium 139 mmol/L (136-145)
[2024-08-23 07:07] LABS: Troponin I Less than 0.010 ng/mL (< 0.028)
[2024-08-23] MEDS ORDERED: Glucagon 1 MG/ML KIT IM PRN (10:11)
[2024-08-23] MEDS ORDERED: Dextrose 50% Abboject 50 ML SYRINGE SLOW IVP PRN (10:11)
[2024-08-23] MEDS ORDERED: Dextrose 5% in Water 1,000 ML IV PRN (10:11)
[2024-08-23] MEDS ORDERED: LACTULOSE 10 GM/15 ML PO SCH (13:00)
[2024-08-23] MEDS ORDERED: Lactulose 20 GM (30 mL) UDCUP ONE ×2 (14:12→17:07)
[2024-08-23] MEDS: Lactulose 20 GM (30 mL) UDCUP PO SCH (14:53)
[2024-08-23] MEDS: Sodium Chloride 0.9% 1,000 ML IV SCH (14:53)
[2024-08-23] MEDS: Sodium Bicarbonate Tab 325 MG TAB PO SCH (19:02)
[2024-08-23 19:36] VITALS: BMI 26.6
[2024-08-23] MEDS: Rifaximin 550 MG TAB PO SCH (21:44)
[2024-08-23] MEDS: Tamsulosin HCl 0.4 MG CAP PO SCH (21:45)
[2024-08-23] MEDS: Famotidine/PF 20 mg/2ml Vial SLOW IVP SCH (21:45)
[2024-08-24 04:30] LABS: #Basophils Less than 0.03 10x3/uL (0.0-0.2); %Basophils 0.4 % (0.0-1.0); %Lymphocytes 25.6 % (21.0-51.0); %Monocytes 8.1 % (0.0-10.0); %Neutrophils 63.5 % (42.0-75.0); Hematocrit 31.5 % (42.0-52.0); Hemoglobin 11.2 g/dL (14.0-18.0); Mean Corpuscular HGB CONC 35.6 g/dL (32.0-36.0); Mean Corpuscular Volume 92.9 fL (78.0-98.0); Mean Platelet Volume 9.9 fL (7.4-10.4); Platelet Count 86 10x3/uL (130-400); RBC Distribution Width 13.1 % (11.5-14.5); Red Blood Cell (RBC) Count 3.39 mill/uL (4.70-6.10)
[2024-08-24 04:40] LABS: Anion Gap 12 mmol/L (10-20); BUN (Urea Nitrogen) 16 mg/dL (8.4-25.7); Calc. Creatinine Clearance 47 mL/min (70-130); Calcium 8.5 mg/dL (7.8-10.44); Carbon Dioxide 16 mmol/L (23-31); Chloride 114 mmol/L (98-107); Estimated GFR 48; Glucose 180 mg/dL (83-110); Potassium 3.2 mmol/L (3.5-5.1); Sodium 139 mmol/L (136-145)
[2024-08-24] MEDS: Levothyroxine Sodium 75 MCG TAB PO SCH (06:16)
[2024-08-24] MEDS ORDERED: Levothyroxine 150 MCG TAB PO SCH (09:00)
[2024-08-24] MEDS: Spironolactone 25 MG TAB PO SCH (11:26)
[2024-08-24] MEDS: Potassium Chloride 20 MEQ TAB PO SCH (12:24)
[2024-08-24] MEDS: Lactulose 20 GM (30 mL) UDCUP PO SCH (13:53)
[2024-08-24 13:57] LABS: Lactic Acid 1.48 mmol/L (0.5-2.2)
[2024-08-25 04:28] LABS: #Basophils Less than 0.03 10x3/uL (0.0-0.2); %Basophils 0.3 % (0.0-1.0); %Eosinophils 1.8 % (0.0-10.0); %Lymphocytes 22.3 % (21.0-51.0); %Monocytes 7.8 % (0.0-10.0); %Neutrophils 67.2 % (42.0-75.0); Hematocrit 32.3 % (42.0-52.0); Hemoglobin 11.5 g/dL (14.0-18.0); Mean Corpuscular HGB CONC 35.6 g/dL (32.0-36.0); Mean Corpuscular Hemoglobin 32.7 pg (27.0-31.0); Mean Corpuscular Volume 91.8 fL (78.0-98.0); Mean Platelet Volume 10.2 fL (7.4-10.4); Platelet Count 91 10x3/uL (130-400); RBC Distribution Width 13.3 % (11.5-14.5); Red Blood Cell (RBC) Count 3.52 mill/uL (4.70-6.10)
[2024-08-25 04:33] LABS: Anion Gap 11 mmol/L (10-20); BUN (Urea Nitrogen) 16 mg/dL (8.4-25.7); Calc. Creatinine Clearance 45 mL/min (70-130); Calcium 8.6 mg/dL (7.8-10.44); Carbon Dioxide 14 mmol/L (23-31); Chloride 117 mmol/L (98-107); Estimated GFR 46; Glucose 160 mg/dL (83-110); Potassium 4.5 mmol/L (3.5-5.1); Sodium 137 mmol/L (136-145)
[2024-08-25] MEDS: Rifaximin 200 MG TAB PO SCH (09:33)
[2024-08-25] MEDS: Insulin Lispro 100 UNIT/ML 10 ML VIAL SC PRN (13:00)
[2024-08-25 16:47] VITALS: BP 118/63; TEMP 97.9
== END 2024-08-25 18:15 | disposition home or self-care (01) | DRG 442 ==
LOC: ERS 05:11 → ERHOLD 08:56 → 2SE 17:17
PROVIDERS: ADMIT Internal Medicine; ATTEND Internal Medicine
DX: K76.82 Hepatic encephalopathy (principal); E87.20 Acidosis, unspecified; K76.6 Portal hypertension; K74.60 Unspecified cirrhosis of liver; E03.9 Hypothyroidism, unspecified; E11.22 Type 2 diabetes mellitus with diabetic chronic kidney disease; N18.30 Chronic kidney disease, stage 3 unspecified; K75.81 Nonalcoholic steatohepatitis (NASH); Z88.8 Allergy status to other drugs, medicaments and biological substances; Z91.148 Patient's other noncompliance with medication regimen for other reason; Z79.4 Long term (current) use of insulin; Z79.899 Other long term (current) drug therapy; Z79.890 Hormone replacement therapy; B18.2 Chronic viral hepatitis C
CPT/HCPCS: 36415; 36416; 70450; 71045; 80048; 80053; 80307; 82140; 83605; 83690; 83735; 84443; 84484; 85025; 85610; 85730; 93005; J1815; J3490; J7030

== ENCOUNTER 2024-09-12 14:07 | Observation (INO) | payer MEDICARE ==
[2024-09-12 14:58] LABS: #Basophils Less than 0.03 10x3/uL (0.0-0.2); %Basophils 0.3 % (0.0-1.0); %Eosinophils 1.6 % (0.0-10.0); %Lymphocytes 16.6 % (21.0-51.0); %Monocytes 8.8 % (0.0-10.0); %Neutrophils 72.4 % (42.0-75.0); Hematocrit 35.4 % (42.0-52.0); Hemoglobin 12.7 g/dL (14.0-18.0); Mean Corpuscular HGB CONC 35.9 g/dL (32.0-36.0); Mean Corpuscular Hemoglobin 32.8 pg (27.0-31.0); Mean Corpuscular Volume 91.5 fL (78.0-98.0); Mean Platelet Volume 9.9 fL (7.4-10.4); Platelet Count 93 10x3/uL (130-400); Red Blood Cell (RBC) Count 3.87 mill/uL (4.70-6.10)
[2024-09-12 15:11] LABS: INR-International Normal Ratio 1.3; Prothrombin Time 16.2 sec (12.0-14.7)
[2024-09-12 15:12] LABS: PTT 32.3 sec (22.9-36.1)
[2024-09-12 15:19] LABS: ALT (SGPT) 21 U/L (8-55); AST (SGOT) 34 U/L (5-34); Albumin 3.1 g/dL (3.4-4.8); Alkaline Phosphatase 170 U/L (40-110); Anion Gap 18 mmol/L (10-20); BUN (Urea Nitrogen) 22 mg/dL (8.4-25.7); Bilirubin, Total 1.9 mg/dL (0.2-1.2); Calc. Creatinine Clearance 0 mL/min (70-130); Calcium 8.9 mg/dL (7.8-10.44); Carbon Dioxide 21 mmol/L (23-31); Chloride 104 mmol/L (98-107); Estimated GFR 39; Globulin 3.7 g/dL (2.4-3.5); Glucose 267 mg/dL (83-110); Lipase 32 U/L (8-78); Magnesium 1.4 mg/dL (1.6-2.6); Potassium 3.7 mmol/L (3.5-5.1); Protein, Total 6.8 g/dL (5.8-8.1); Sodium 139 mmol/L (136-145)
[2024-09-12 15:57] LABS: Acetaminophen Less than 10 mcg/mL (Less than 10); Alcohol Less than 10.0 mg/dL (Less than 10); Salicylate Less than 8.0 mg/dL (Less than 8.0)
[2024-09-12] MEDS ORDERED: Ondansetron PF 4 MG/2 ML Vial ONE (15:57)
[2024-09-12] MEDS ORDERED: Insulin Regular, Human 100 UNIT/ML 10 ML VIAL ONE (16:16)
[2024-09-12] MEDS ORDERED: Magnesium 2 GM/50 ML BAG (IN WATER) ONE (16:16)
[2024-09-12] MEDS ORDERED: Lactulose 20 GM (30 mL) UDCUP ONE (16:16)
[2024-09-12] MEDS ORDERED: Ondansetron PF 4 MG/2 ML Vial IVP PRN (16:44)
[2024-09-12] MEDS ORDERED: Ondansetron ODT 4 MG TAB PO PRN (16:44)
[2024-09-12] MEDS ORDERED: Acetaminophen 325 MG TAB PO PRN (16:44)
[2024-09-12 16:59] LABS: Amphetamine Not Detected (NotDetected); Barbiturates Screen Not Detected (NotDetected); Benzodiazepine Screen Not Detected (NotDetected); Cocaine Metabolite Screen Not Detected (NotDetected); Methadone Not Detected (NotDetected); Methamphetamine Not Detected (NotDetected); Opiate Screen Not Detected (NotDetected); Oxycodone Screen Not Detected (NotDetected); Phencyclidine (PCP) Not Detected (NotDetected); THC/Cannabinoid Screen Not Detected (NotDetected); Tricyclic Screen Not Detected (NotDetected)
[2024-09-12 17:03] LABS: Bilirubin Negative (Negative); Blood, Urine Negative (Negative); CAUTI Indications for Culture Dysuria,urgency,freq; Glucose, Urine (Dipstick) 150 mg/dL (Negative); Ketone, Urine Trace mg/dL (Negative); Leukocyte 25 Leu/uL (Negative); Nitrite 1+ (Negative); Protein, Urine (Dipstick) Negative (Neg-Trace); RBC/HPF 0-3 HPF (0-3); Specific Gravity, Urine 1.017 (1.002-1.036); Squamous Epithelial 0-3 HPF (0-3); Urobilinogen Normal mg/dL (Less than 2)
[2024-09-12] MEDS ORDERED: Electrolyte Replacement Protocol 1 EACH FS SCH (17:03)
[2024-09-12] MEDS ORDERED: Glucagon 1 MG/ML KIT IM PRN (17:05)
[2024-09-12] MEDS ORDERED: Dextrose 50% Abboject 50 ML SYRINGE SLOW IVP PRN (17:05)
[2024-09-12] MEDS ORDERED: Dextrose 5% in Water 1,000 ML IV PRN (17:05)
[2024-09-12 17:18] LABS: Clarity Hazy (Clear)
[2024-09-12 17:19] LABS: Bacteria/HPF 1+ HPF (None Seen)
[2024-09-12 17:20] LABS: Urine Culture Reflex No No
[2024-09-12 17:41] VITALS: BMI 26.9
[2024-09-12] MEDS: Sodium Chloride 0.9% 1,000 ML IV SCH (18:10)
[2024-09-12] MEDS: Insulin Lispro 100 UNIT/ML 10 ML VIAL SC PRN (18:10)
[2024-09-12] MEDS: Magnesium 2 GM/50 ML(in water) 2 GM in Premix 1 BAG IVPB SCH (18:38)
[2024-09-12] MEDS ORDERED: LACTULOSE 10 GM/15 ML PO SCH (21:00)
[2024-09-12] MEDS: Rifaximin 550 MG TAB PO SCH (22:19)
[2024-09-12] MEDS: Lactulose 20 GM (30 mL) UDCUP PO SCH (22:20)
[2024-09-13 03:40] LABS: #Basophils Less than 0.03 10x3/uL (0.0-0.2); %Basophils 0.4 % (0.0-1.0); %Eosinophils 2.6 % (0.0-10.0); %Lymphocytes 23.4 % (21.0-51.0); %Monocytes 9.1 % (0.0-10.0); %Neutrophils 64.1 % (42.0-75.0); Hematocrit 30.2 % (42.0-52.0); Mean Corpuscular HGB CONC 36.4 g/dL (32.0-36.0); Mean Corpuscular Hemoglobin 33.4 pg (27.0-31.0); Mean Corpuscular Volume 91.8 fL (78.0-98.0); Mean Platelet Volume 9.9 fL (7.4-10.4); Platelet Count 88 10x3/uL (130-400); RBC Distribution Width 13.9 % (11.5-14.5); Red Blood Cell (RBC) Count 3.29 mill/uL (4.70-6.10)
[2024-09-13 03:52] LABS: ALT (SGPT) 17 U/L (8-55); AST (SGOT) 27 U/L (5-34); Albumin 2.6 g/dL (3.4-4.8); Alkaline Phosphatase 129 U/L (40-110); Anion Gap 13 mmol/L (10-20); BUN (Urea Nitrogen) 21 mg/dL (8.4-25.7); Bilirubin, Total 1.9 mg/dL (0.2-1.2); Calc. Creatinine Clearance 43 mL/min (70-130); Calcium 8.2 mg/dL (7.8-10.44); Carbon Dioxide 21 mmol/L (23-31); Chloride 109 mmol/L (98-107); Estimated GFR 42; Glucose 190 mg/dL (83-110); Magnesium 1.9 mg/dL (1.6-2.6); Potassium 3.2 mmol/L (3.5-5.1); Protein, Total 5.6 g/dL (5.8-8.1); Sodium 140 mmol/L (136-145)
[2024-09-13 07:55] VITALS: BP 117/71; TEMP 98.1
[2024-09-13] MEDS: Magnesium 2 GM/50 ML(in water) 2 GM in Premix 1 BAG IVPB SCH (09:00)
[2024-09-13] MEDS ORDERED: Furosemide 40 MG TAB PO SCH (09:00)
[2024-09-13] MEDS: Insulin Glargine 30 UNITS/0.3 ML VIAL SC SCH (09:01)
[2024-09-13] MEDS: Pantoprazole DR 40 MG TAB PO SCH (09:01)
[2024-09-13] MEDS: Potassium Chloride 20 MEQ in Premix 1 BAG IVPB SCH (09:01)
[2024-09-13] MEDS: Enoxaparin 40 MG (0.4 mL) SYRINGE SC SCH (09:03)
[2024-09-13] MEDS: Potassium Chloride 20 MEQ TAB PO SCH (12:19)
[2024-09-13] MEDS ORDERED: Rifaximin 200 MG TAB PO SCH (21:00)
== END 2024-09-13 14:16 | disposition home or self-care (01) ==
LOC: ERS 14:07 → T4-A 17:13
PROVIDERS: ADMIT Internal Medicine; ATTEND Internal Medicine
DX: K52.9 Noninfective gastroenteritis and colitis, unspecified (principal); K75.81 Nonalcoholic steatohepatitis (NASH); N18.30 Chronic kidney disease, stage 3 unspecified; E03.9 Hypothyroidism, unspecified; E11.22 Type 2 diabetes mellitus with diabetic chronic kidney disease; B19.20 Unspecified viral hepatitis C without hepatic coma; N17.9 Acute kidney failure, unspecified; K74.60 Unspecified cirrhosis of liver; Z88.8 Allergy status to other drugs, medicaments and biological substances; Z79.899 Other long term (current) drug therapy
CPT/HCPCS: 71045; 80053; 80306; 80307; 81001; 82140 ×2; 82962 ×2; 83690; 83735 ×2; 83880; 85025; 85610; 85730; 86850; 86900; 86901; 93005; 96375; 96376 ×2; G0378 ×3; J1815 ×2; J2405; J3475 ×2; J3480; J7030; 36415; 36416; 84443; 96374

== ENCOUNTER 2024-09-20 16:18 | Inpatient (IN) | payer MEDICARE ==
[2024-09-20 16:55] VITALS: BMI 27.2
[2024-09-20] MEDS ORDERED: Glucagon 1 MG/ML KIT IM PRN (18:03)
[2024-09-20] MEDS ORDERED: Bisacodyl 5 MG TAB PO PRN (18:03)
[2024-09-20] MEDS ORDERED: Dextrose 50% Abboject 50 ML SYRINGE SLOW IVP PRN (18:03)
[2024-09-20] MEDS ORDERED: Dextrose 5% in Water 1,000 ML IV PRN (18:03)
[2024-09-20] MEDS: Cefepime 1 GM in Sodium Chloride 0.9% 100 ML IVPB SCH (19:46)
[2024-09-20] MEDS: Rifaximin 200 MG TAB PO SCH (19:46)
[2024-09-20] MEDS: Lactulose 20 GM (30 mL) UDCUP PO SCH (19:46)
[2024-09-20] MEDS: Sodium Bicarbonate Tab 325 MG TAB PO SCH (19:47)
[2024-09-20] MEDS: Magnesium Oxide 250 MG TAB PO SCH (19:47)
[2024-09-21] MEDS: Ondansetron PF 4 MG/2 ML Vial IVP PRN (00:58)
[2024-09-21] MEDS: Levothyroxine Sodium 100 MCG TAB PO SCH (05:32)
[2024-09-21 06:15] LABS: #Basophils 0.03 10x3/uL (0.0-0.2); %Basophils 0.5 % (0.0-1.0); %Lymphocytes 16.1 % (21.0-51.0); %Monocytes 5.7 % (0.0-10.0); %Neutrophils 75.4 % (42.0-75.0); Hemoglobin 12.6 g/dL (14.0-18.0); Mean Corpuscular Hemoglobin 33.2 pg (27.0-31.0); Mean Corpuscular Volume 92.3 fL (78.0-98.0); Mean Platelet Volume 9.6 fL (7.4-10.4); Platelet Count 112 10x3/uL (130-400); RBC Distribution Width 13.8 % (11.5-14.5); Red Blood Cell (RBC) Count 3.79 mill/uL (4.70-6.10)
[2024-09-21 06:27] LABS: ALT (SGPT) 23 U/L (8-55); AST (SGOT) 34 U/L (5-34); Albumin 2.9 g/dL (3.4-4.8); Alkaline Phosphatase 127 U/L (40-110); Anion Gap 16 mmol/L (10-20); BUN (Urea Nitrogen) 26 mg/dL (8.4-25.7); Bilirubin, Total 2.1 mg/dL (0.2-1.2); Calc. Creatinine Clearance 37 mL/min (70-130); Calcium 8.5 mg/dL (7.8-10.44); Carbon Dioxide 19 mmol/L (23-31); Chloride 109 mmol/L (98-107); Estimated GFR 35; Globulin 3.5 g/dL (2.4-3.5); Glucose 127 mg/dL (83-110); Potassium 3.9 mmol/L (3.5-5.1); Protein, Total 6.4 g/dL (5.8-8.1); Sodium 140 mmol/L (136-145)
[2024-09-21] MEDS: Cholecalciferol 1,000 UNITS (25 MCG) TAB PO SCH (08:53)
[2024-09-21] MEDS: Tamsulosin HCl 0.4 MG CAP PO SCH (08:53)
[2024-09-21] MEDS: Cyanocobalamin (Vitamin B-12) 1,000 MCG TAB PO SCH (08:53)
[2024-09-21] MEDS: Insulin Glargine 30 UNITS/0.3 ML VIAL SC SCH (08:54)
[2024-09-21] MEDS: Sodium Chloride 0.9% 1,000 ML IV SCH (11:15)
[2024-09-21] MEDS: Insulin Lispro 100 UNIT/ML 10 ML VIAL SC PRN (17:34)
[2024-09-22 06:05] LABS: #Basophils Less than 0.03 10x3/uL (0.0-0.2); %Basophils 0.2 % (0.0-1.0); %Eosinophils 3.7 % (0.0-10.0); %Lymphocytes 18.5 % (21.0-51.0); %Neutrophils 68.4 % (42.0-75.0); Hematocrit 32.2 % (42.0-52.0); Hemoglobin 11.4 g/dL (14.0-18.0); Mean Corpuscular HGB CONC 35.4 g/dL (32.0-36.0); Mean Corpuscular Hemoglobin 32.8 pg (27.0-31.0); Mean Corpuscular Volume 92.5 fL (78.0-98.0); Mean Platelet Volume 9.8 fL (7.4-10.4); Platelet Count 91 10x3/uL (130-400); RBC Distribution Width 13.8 % (11.5-14.5); Red Blood Cell (RBC) Count 3.48 mill/uL (4.70-6.10)
[2024-09-22 06:36] LABS: Anion Gap 13 mmol/L (10-20); BUN (Urea Nitrogen) 24 mg/dL (8.4-25.7); Calc. Creatinine Clearance 42 mL/min (70-130); Calcium 7.8 mg/dL (7.8-10.44); Carbon Dioxide 19 mmol/L (23-31); Chloride 112 mmol/L (98-107); Estimated GFR 41; Glucose 117 mg/dL (83-110); Potassium 3.6 mmol/L (3.5-5.1); Sodium 140 mmol/L (136-145)
[2024-09-22] MEDS ORDERED: Sodium Bicarbonate 150 MEQ in Sterile Water 1,000 ML IV SCH ×2 (07:45→09:33)
[2024-09-22] MEDS: Lactulose 20 GM (30 mL) UDCUP PO SCH (08:14)
[2024-09-22 10:31] LABS: Free T4 (Free Thyroxine) 1.33 ng/dL (0.70-1.48)
[2024-09-22 19:48] VITALS: BP 126/71; TEMP 97.7
== END 2024-09-23 14:26 | disposition home or self-care (01) | DRG 690 ==
LOC: T4-A 16:18 → OBSVTOIN 09-21 16:12
PROVIDERS: ADMIT Internal Medicine; ATTEND Hospitalist
DX: N39.0 Urinary tract infection, site not specified (principal); N18.4 Chronic kidney disease, stage 4 (severe); N17.9 Acute kidney failure, unspecified; E87.20 Acidosis, unspecified; K74.60 Unspecified cirrhosis of liver; N40.0 Benign prostatic hyperplasia without lower urinary tract symptoms; E11.22 Type 2 diabetes mellitus with diabetic chronic kidney disease; E03.9 Hypothyroidism, unspecified; K75.81 Nonalcoholic steatohepatitis (NASH); Z79.4 Long term (current) use of insulin; Z88.8 Allergy status to other drugs, medicaments and biological substances; Z98.890 Other specified postprocedural states; Z79.899 Other long term (current) drug therapy
CPT/HCPCS: 36415; 36416; 80048; 80053; 84439; 84443; 84481; 85025; 96374; 96375; 96376; G0378; J0692; J1815; J2405; J7030

== ENCOUNTER 2024-10-04 17:15 | Observation (INO) | payer MEDICARE ==
[2024-10-04 18:20] LABS: ALT (SGPT) 23 U/L (8-55); AST (SGOT) 38 U/L (5-34); Albumin 3.1 g/dL (3.4-4.8); Alkaline Phosphatase 167 U/L (40-110); Anion Gap 18 mmol/L (10-20); BUN (Urea Nitrogen) 20 mg/dL (8.4-25.7); Bilirubin, Total 1.7 mg/dL (0.2-1.2); Calc. Creatinine Clearance 0 mL/min (70-130); Calcium 8.7 mg/dL (7.8-10.44); Carbon Dioxide 22 mmol/L (23-31); Chloride 105 mmol/L (98-107); Estimated GFR 31; Globulin 3.6 g/dL (2.4-3.5); Glucose 235 mg/dL (83-110); Lipase 25 U/L (8-78); Magnesium 1.3 mg/dL (1.6-2.6); Potassium 4.1 mmol/L (3.5-5.1); Protein, Total 6.7 g/dL (5.8-8.1); Sodium 141 mmol/L (136-145)
[2024-10-04 18:23] LABS: Troponin I Less than 0.010 ng/mL (< 0.028)
[2024-10-04 18:28] LABS: #Basophils 0.04 10x3/uL (0.0-0.2); %Basophils 0.5 % (0.0-1.0); %Lymphocytes 12.1 % (21.0-51.0); %Monocytes 7.3 % (0.0-10.0); %Neutrophils 78.6 % (42.0-75.0); Hematocrit 37.9 % (42.0-52.0); Hemoglobin 13.1 g/dL (14.0-18.0); Mean Corpuscular HGB CONC 34.6 g/dL (32.0-36.0); Mean Corpuscular Hemoglobin 33.1 pg (27.0-31.0); Mean Corpuscular Volume 95.7 fL (78.0-98.0); Mean Platelet Volume 10.2 fL (7.4-10.4); Platelet Count 106 10x3/uL (130-400); RBC Distribution Width 13.6 % (11.5-14.5); Red Blood Cell (RBC) Count 3.96 mill/uL (4.70-6.10)
[2024-10-04] MEDS ORDERED: Sodium Chloride 0.9% 100 ML ONE (20:19)
[2024-10-04] MEDS ORDERED: cefTRIAXone (ROCEPHIN) 2 GM VIAL ONE (20:19)
[2024-10-04 21:03] LABS: Bacteria/HPF None Seen HPF (None Seen); Bilirubin Negative (Negative); Blood, Urine Negative (Negative); CAUTI Indications for Culture Dysuria,urgency,freq; Clarity Clear (Clear); Glucose, Urine (Dipstick) 100 mg/dL (Negative); Ketone, Urine 10 mg/dL (Negative); Leukocyte 25 Leu/uL (Negative); Nitrite Negative (Negative); Protein, Urine (Dipstick) 30 mg/dL (Neg-Trace); RBC/HPF 0-3 HPF (0-3); Specific Gravity, Urine 1.023 (1.002-1.036); Squamous Epithelial 0-3 HPF (0-3); Urobilinogen Normal mg/dL (Less than 2); WBC/HPF 0-3 HPF (0-3)
[2024-10-04 21:05] LABS: Lactic Acid 2.97 mmol/L (0.5-2.2)
[2024-10-04 21:15] LABS: Urine Culture Reflex No No
[2024-10-04 23:01] VITALS: BMI 27.4
[2024-10-04] MEDS ORDERED: Calcium Carbonate 500 MG ChewTAB PO PRN (23:29)
[2024-10-04] MEDS ORDERED: Ondansetron ODT 4 MG TAB PO PRN (23:29)
[2024-10-04] MEDS ORDERED: Acetaminophen 650 MG Suppository PR PRN (23:29)
[2024-10-04] MEDS ORDERED: Dextrose 5% in Water 1,000 ML IV PRN (23:31)
[2024-10-04] MEDS ORDERED: Insulin Lispro 100 UNIT/ML 10 ML VIAL SC PRN (23:31)
[2024-10-04] MEDS ORDERED: Glucagon 1 MG/ML KIT IM PRN (23:31)
[2024-10-04] MEDS ORDERED: Dextrose 50% Abboject 50 ML SYRINGE SLOW IVP PRN (23:31)
[2024-10-05] MEDS: Acetaminophen 325 MG TAB PO SCH (00:32)
[2024-10-05] MEDS: Lactated Ringer's 1,000 ML IV SCH (00:33)
[2024-10-05] MEDS: Ondansetron PF 4 MG/2 ML Vial IVP PRN (00:41)
[2024-10-05] MEDS: Levothyroxine Sodium 75 MCG TAB PO SCH (05:24)
[2024-10-05] MEDS: Insulin Lispro 100 UNIT/ML 10 ML VIAL SC PRN (05:28)
[2024-10-05 05:55] LABS: #Basophils Less than 0.03 10x3/uL (0.0-0.2); %Basophils 0.2 % (0.0-1.0); %Lymphocytes 4.9 % (21.0-51.0); %Monocytes 4.1 % (0.0-10.0); %Neutrophils 89.3 % (42.0-75.0); Hematocrit 30.9 % (42.0-52.0); Hemoglobin 10.8 g/dL (14.0-18.0); Mean Corpuscular Hemoglobin 32.5 pg (27.0-31.0); Mean Corpuscular Volume 93.1 fL (78.0-98.0); Mean Platelet Volume 9.8 fL (7.4-10.4); Platelet Count 81 10x3/uL (130-400); RBC Distribution Width 13.6 % (11.5-14.5); Red Blood Cell (RBC) Count 3.32 mill/uL (4.70-6.10)
[2024-10-05 07:28] LABS: Albumin 2.5 g/dL (3.4-4.8); Calcium 7.8 mg/dL (7.8-10.44); Chloride 110 mmol/L (98-107); Potassium 3.6 mmol/L (3.5-5.1); Sodium 141 mmol/L (136-145)
[2024-10-05 07:29] LABS: Globulin 2.8 g/dL (2.4-3.5); Glucose 195 mg/dL (83-110); Protein, Total 5.3 g/dL (5.8-8.1)
[2024-10-05 07:30] LABS: Anion Gap 16 mmol/L (10-20); Carbon Dioxide 19 mmol/L (23-31)
[2024-10-05 07:32] LABS: Alkaline Phosphatase 125 U/L (40-110); Bilirubin, Total 1.2 mg/dL (0.2-1.2)
[2024-10-05 07:33] LABS: BUN (Urea Nitrogen) 24 mg/dL (8.4-25.7); Calc. Creatinine Clearance 39 mL/min (70-130); Estimated GFR 38
[2024-10-05 07:35] LABS: ALT (SGPT) 19 U/L (8-55); AST (SGOT) 32 U/L (5-34)
[2024-10-05 07:51] VITALS: TEMP 98.2
[2024-10-05] MEDS: Furosemide 40 MG TAB PO SCH (08:47)
[2024-10-05] MEDS: Spironolactone 25 MG TAB PO SCH (08:47)
[2024-10-05] MEDS: Tamsulosin HCl 0.4 MG CAP PO SCH (08:47)
[2024-10-05] MEDS: Sodium Bicarbonate Tab 325 MG TAB PO SCH (08:47)
[2024-10-05] MEDS: Lactulose 20 GM (30 mL) UDCUP PO SCH (08:47)
[2024-10-05] MEDS: Insulin Glargine 30 UNITS/0.3 ML VIAL SC SCH (08:48)
[2024-10-05] MEDS: Rifaximin 550 MG TAB PO SCH (08:48)
[2024-10-05 11:42] VITALS: BP 110/62
[2024-10-05] MEDS ORDERED: Magnesium Oxide 250 MG TAB PO SCH (21:00)
[2024-10-05] MEDS ORDERED: Rifaximin 200 MG TAB PO SCH (21:00)
== END 2024-10-05 13:41 | disposition home or self-care (01) ==
LOC: ERS 17:15 → T4-B 21:19
PROVIDERS: ADMIT Student in an Organized Health Care Education/Training Program; ATTEND Family Medicine
DX: K74.60 Unspecified cirrhosis of liver (principal); N18.9 Chronic kidney disease, unspecified; E11.22 Type 2 diabetes mellitus with diabetic chronic kidney disease; R19.7 Diarrhea, unspecified; N18.30 Chronic kidney disease, stage 3 unspecified; E03.9 Hypothyroidism, unspecified; K75.81 Nonalcoholic steatohepatitis (NASH); E87.20 Acidosis, unspecified; Z88.8 Allergy status to other drugs, medicaments and biological substances; Z79.899 Other long term (current) drug therapy; Z90.89 Acquired absence of other organs; Z98.890 Other specified postprocedural states; Z79.890 Hormone replacement therapy
CPT/HCPCS: 80053 ×2; 81001; 82140; 82962 ×2; 83605; 83690; 83735; 84484; 85025 ×2; 93005; 96361; 96365; 96375; 99285; G0378 ×3; J0696; J1815; J2405; J7120; 36415; 36416

== ENCOUNTER 2024-11-11 09:50 | Observation (INO) | payer MEDICARE ==
[2024-11-11 12:47] VITALS: BMI 27.3
[2024-11-11] MEDS ORDERED: Acetaminophen 325 MG TAB PO PRN (13:38)
[2024-11-11] MEDS ORDERED: Insulin Lispro 100 UNIT/ML 10 ML VIAL SC PRN ×2 (13:39)
[2024-11-11] MEDS ORDERED: Dextrose 5% in Water 1,000 ML IV PRN (13:39)
[2024-11-11] MEDS ORDERED: Glucagon 1 MG/ML KIT IM PRN (13:39)
[2024-11-11] MEDS ORDERED: Dextrose 50% Abboject 50 ML SYRINGE SLOW IVP PRN (13:39)
[2024-11-11] MEDS: Lactated Ringer's 1,000 ML IV SCH (15:31)
[2024-11-11] MEDS: Heparin 5,000 UNITS/ML VIAL SC SCH (15:34)
[2024-11-11] MEDS: Lactulose 20 GM (30 mL) UDCUP PO SCH ×2 (18:22→20:46)
[2024-11-11 20:25] LABS: Free T4 (Free Thyroxine) 0.9 ng/dL (0.70-1.48); Thyroid Stimulating Hormone 4.5022 uIU/mL (0.35-4.94)
[2024-11-11] MEDS: Insulin Glargine 30 UNITS/0.3 ML VIAL SC SCH (20:47)
[2024-11-11] MEDS: Magnesium Oxide 250 MG TAB PO SCH (20:47)
[2024-11-11] MEDS: Rifaximin 550 MG TAB PO SCH (21:25)
[2024-11-12] MEDS: Levothyroxine Sodium 75 MCG TAB PO SCH (05:02)
[2024-11-12 06:22] LABS: ALT (SGPT) 19 U/L (8-55); AST (SGOT) 33 U/L (5-34); Albumin 2.6 g/dL (3.4-4.8); Alkaline Phosphatase 149 U/L (40-110); Anion Gap 11 mmol/L (10-20); BUN (Urea Nitrogen) 17 mg/dL (8.4-25.7); Bilirubin, Total 2.1 mg/dL (0.2-1.2); Calc. Creatinine Clearance 59 mL/min (70-130); Calcium 8.5 mg/dL (7.8-10.44); Carbon Dioxide 18 mmol/L (23-31); Chloride 114 mmol/L (98-107); Estimated GFR 62; Globulin 3.3 g/dL (2.4-3.5); Glucose 109 mg/dL (83-110); Potassium 3.8 mmol/L (3.5-5.1); Protein, Total 5.9 g/dL (5.8-8.1); Sodium 139 mmol/L (136-145)
[2024-11-12 06:46] LABS: #Basophils Less than 0.03 10x3/uL (0.0-0.2); %Basophils 0.3 % (0.0-1.0); %Eosinophils 1.7 % (0.0-10.0); %Lymphocytes 25.3 % (21.0-51.0); %Monocytes 8.2 % (0.0-10.0); %Neutrophils 64.2 % (42.0-75.0); Hemoglobin 12.2 g/dL (14.0-18.0); Mean Corpuscular HGB CONC 35.9 g/dL (32.0-36.0); Mean Corpuscular Hemoglobin 32.4 pg (27.0-31.0); Mean Corpuscular Volume 90.2 fL (78.0-98.0); Mean Platelet Volume 10.2 fL (7.4-10.4); Platelet Count 76 10x3/uL (130-400); RBC Distribution Width 13.2 % (11.5-14.5); Red Blood Cell (RBC) Count 3.77 mill/uL (4.70-6.10)
[2024-11-12] MEDS: Cholecalciferol 1,000 UNITS (25 MCG) TAB PO SCH (08:39)
[2024-11-12] MEDS: Cyanocobalamin (Vitamin B-12) 1,000 MCG TAB PO SCH (08:40)
[2024-11-12 11:31] VITALS: BP 154/89; TEMP 97.9
== END 2024-11-12 13:45 | disposition home or self-care (01) ==
LOC: T4-A 11:30
PROVIDERS: ADMIT Internal Medicine; ATTEND Internal Medicine
DX: K76.82 Hepatic encephalopathy (principal); K74.60 Unspecified cirrhosis of liver; K75.81 Nonalcoholic steatohepatitis (NASH); B18.2 Chronic viral hepatitis C; E87.20 Acidosis, unspecified; E03.9 Hypothyroidism, unspecified; E11.22 Type 2 diabetes mellitus with diabetic chronic kidney disease; N18.30 Chronic kidney disease, stage 3 unspecified; Z88.8 Allergy status to other drugs, medicaments and biological substances; Z79.890 Hormone replacement therapy; Z79.4 Long term (current) use of insulin; Z79.899 Other long term (current) drug therapy
CPT/HCPCS: 80053; 82962 ×2; 84439; 84443; 84481; 85025; 97116; G0378 ×2; J7120; 36415; 36416; J1815

== ENCOUNTER 2024-12-08 19:38 | Inpatient (IN) | payer MEDICARE ==
[2024-12-08] MEDS ORDERED: Ondansetron PF 4 MG/2 ML Vial ONE (20:06)
[2024-12-08 20:21] LABS: #Basophils 0.03 10x3/uL (0.0-0.2); %Basophils 0.5 % (0.0-1.0); %Eosinophils 1.6 % (0.0-10.0); %Monocytes 7.2 % (0.0-10.0); %Neutrophils 64.3 % (42.0-75.0); Hematocrit 33.6 % (42.0-52.0); Hemoglobin 12.4 g/dL (14.0-18.0); Mean Corpuscular HGB CONC 36.9 g/dL (32.0-36.0); Mean Corpuscular Hemoglobin 33.3 pg (27.0-31.0); Mean Corpuscular Volume 90.3 fL (78.0-98.0); Mean Platelet Volume 9.8 fL (7.4-10.4); Platelet Count 81 10x3/uL (130-400); RBC Distribution Width 14.2 % (11.5-14.5); Red Blood Cell (RBC) Count 3.72 mill/uL (4.70-6.10)
[2024-12-08 20:38] LABS: ALT (SGPT) 34 U/L (Less than 45); AST (SGOT) 63 U/L (11-34); Albumin 3.4 g/dL (3.1-4.5); Alkaline Phosphatase 219 U/L (40-110); Anion Gap 16 mmol/L (10-20); BUN (Urea Nitrogen) 33 mg/dL (8.4-25.7); Calc. Creatinine Clearance 0 mL/min (70-130); Calcium 9.3 mg/dL (7.8-10.44); Carbon Dioxide 19 mmol/L (23-31); Chloride 108 mmol/L (98-107); Estimated GFR 32; Globulin 3.6 g/dL (2.4-3.5); Glucose 264 mg/dL (83-110); Lipase 30 U/L (8-78); Potassium 3.9 mmol/L (3.5-5.1); Sodium 139 mmol/L (136-145)
[2024-12-08 21:05] LABS: Acetaminophen Less than 10 mcg/mL (Less than 10); Alcohol Less than 10.0 mg/dL (Less than 10); Salicylate Less than 8.0 mg/dL (Less than 8.0)
[2024-12-08] MEDS ORDERED: Lactulose 20 GM (30 mL) UDCUP ONE (21:14)
[2024-12-08] MEDS ORDERED: Ondansetron PF 4 MG/2 ML Vial IVP PRN (22:07)
[2024-12-08] MEDS ORDERED: Dextrose 50% Abboject 50 ML SYRINGE SLOW IVP PRN (22:10)
[2024-12-08] MEDS ORDERED: Dextrose 5% in Water 1,000 ML IV PRN (22:10)
[2024-12-08] MEDS ORDERED: Glucagon 1 MG/ML KIT IM PRN (22:10)
[2024-12-08] MEDS ORDERED: Acetaminophen 500 MG TAB PO PRN (22:18)
[2024-12-08 22:21] LABS: Bacteria/HPF None Seen HPF (None Seen); Bilirubin Negative (Negative); Blood, Urine Negative (Negative); CAUTI Indications for Culture Dysuria,urgency,freq; Clarity Clear (Clear); Glucose, Urine (Dipstick) 150 mg/dL (Negative); Ketone, Urine Trace mg/dL (Negative); Leukocyte Negative Leu/uL (Negative); Nitrite Negative (Negative); Protein, Urine (Dipstick) Negative (Neg-Trace); RBC/HPF 0-3 HPF (0-3); Specific Gravity, Urine 1.015 (1.002-1.036); Squamous Epithelial 0-3 HPF (0-3); Urobilinogen Normal mg/dL (Less than 2); WBC/HPF 0-3 HPF (0-3); pH, Urine 5.5 (5.0-9.0)
[2024-12-08 22:22] LABS: Urine Culture Reflex No No
[2024-12-08] MEDS: Lactated Ringer's 1,000 ML IV SCH (23:03)
[2024-12-08 23:04] VITALS: BMI 25.2
[2024-12-08 23:45] LABS: Lactic Acid 3.63 mmol/L (0.50-2.20)
[2024-12-09] MEDS: Insulin Lispro 100 UNIT/ML 10 ML VIAL SC PRN ×2 (00:53→18:25)
[2024-12-09] MEDS: Levothyroxine Sodium 75 MCG TAB PO SCH (05:18)
[2024-12-09 06:13] LABS: #Basophils 0.03 10x3/uL (0.0-0.2); %Basophils 0.5 % (0.0-1.0); %Lymphocytes 31.1 % (21.0-51.0); %Monocytes 8.4 % (0.0-10.0); %Neutrophils 57.5 % (42.0-75.0); Hematocrit 31.6 % (42.0-52.0); Hemoglobin 11.6 g/dL (14.0-18.0); Mean Corpuscular HGB CONC 36.7 g/dL (32.0-36.0); Mean Corpuscular Hemoglobin 33.5 pg (27.0-31.0); Mean Corpuscular Volume 91.3 fL (78.0-98.0); Platelet Count 83 10x3/uL (130-400); RBC Distribution Width 14.6 % (11.5-14.5); Red Blood Cell (RBC) Count 3.46 mill/uL (4.70-6.10)
[2024-12-09 06:19] LABS: Anion Gap 18 mmol/L (10-20); BUN (Urea Nitrogen) 32 mg/dL (8.4-25.7); Calc. Creatinine Clearance 35 mL/min (70-130); Calcium 8.7 mg/dL (7.8-10.44); Carbon Dioxide 17 mmol/L (23-31); Chloride 113 mmol/L (98-107); Estimated GFR 37; Glucose 135 mg/dL (83-110); Potassium 3.5 mmol/L (3.5-5.1); Sodium 144 mmol/L (136-145)
[2024-12-09 09:51] LABS: Magnesium 1.6 mg/dL (1.6-2.6)
[2024-12-09] MEDS: Sodium Bicarbonate 150 MEQ in Sterile Water 1,000 ML IV SCH (10:10)
[2024-12-09] MEDS: Lactulose 20 GM (30 mL) UDCUP PO SCH (10:11)
[2024-12-09] MEDS: Sodium Bicarbonate Tab 325 MG TAB PO SCH (10:11)
[2024-12-09] MEDS: Rifaximin 550 MG TAB PO SCH (10:11)
[2024-12-09] MEDS: Magnesium Oxide 400 MG TAB PO SCH (13:21)
[2024-12-09] MEDS: Tamsulosin HCl 0.4 MG CAP PO SCH (19:49)
[2024-12-10 06:09] LABS: Anion Gap 16 mmol/L (10-20); BUN (Urea Nitrogen) 21 mg/dL (8.4-25.7); Calc. Creatinine Clearance 46 mL/min (70-130); Calcium 8.5 mg/dL (7.8-10.44); Carbon Dioxide 23 mmol/L (23-31); Chloride 106 mmol/L (98-107); Estimated GFR 50; Glucose 115 mg/dL (83-110); Potassium 3.2 mmol/L (3.5-5.1); Sodium 142 mmol/L (136-145)
[2024-12-10 06:41] LABS: #Basophils Less than 0.03 10x3/uL (0.0-0.2); %Basophils 0.4 % (0.0-1.0); %Eosinophils 1.8 % (0.0-10.0); %Lymphocytes 35.7 % (21.0-51.0); %Monocytes 8.7 % (0.0-10.0); Hemoglobin 10.9 g/dL (14.0-18.0); Mean Corpuscular HGB CONC 36.3 g/dL (32.0-36.0); Mean Corpuscular Volume 90.9 fL (78.0-98.0); Mean Platelet Volume 10.2 fL (7.4-10.4); Platelet Count 66 10x3/uL (130-400); RBC Distribution Width 14.4 % (11.5-14.5)
[2024-12-10 07:42] LABS: Magnesium 1.4 mg/dL (1.6-2.6)
[2024-12-10] MEDS: Magnesium Oxide 400 MG TAB PO SCH (07:59)
[2024-12-10] MEDS: Potassium Chloride 20 MEQ TAB PO SCH ×2 (07:59→15:50)
[2024-12-10] MEDS ORDERED: Electrolyte Replacement Protocol 1 EACH FS SCH (08:15)
[2024-12-10] MEDS: Magnesium Sulfate In Water 4 GM in Premix 1 BAG IVPB SCH (09:09)
[2024-12-10 14:36] LABS: Anion Gap 13 mmol/L (10-20); BUN (Urea Nitrogen) 18 mg/dL (8.4-25.7); Calc. Creatinine Clearance 48 mL/min (70-130); Calcium 8.7 mg/dL (7.8-10.44); Carbon Dioxide 24 mmol/L (23-31); Chloride 104 mmol/L (98-107); Estimated GFR 53; Glucose 170 mg/dL (83-110); Magnesium 2.5 mg/dL (1.6-2.6); Potassium 3.3 mmol/L (3.5-5.1); Sodium 138 mmol/L (136-145)
[2024-12-11 00:24] VITALS: BP 123/72; TEMP 98.1
[2024-12-11 06:49] LABS: Albumin 2.8 g/dL (3.1-4.5); Anion Gap 14 mmol/L (10-20); BUN (Urea Nitrogen) 15 mg/dL (8.4-25.7); BUN/Creatinine Ratio 11.03; Calc. Creatinine Clearance 49 mL/min (70-130); Calcium 8.4 mg/dL (7.8-10.44); Carbon Dioxide 19 mmol/L (23-31); Chloride 110 mmol/L (98-107); Estimated GFR 55; Glucose 123 mg/dL (83-110); Magnesium 1.8 mg/dL (1.6-2.6); Potassium 4.8 mmol/L (3.5-5.1); Sodium 138 mmol/L (136-145)
[2024-12-11] MEDS: Sodium Bicarbonate Tab 325 MG TAB PO SCH (08:43)
[2024-12-11] MEDS: PHOS-NAK 1 PKT PACK PO SCH (08:43)
[2024-12-11] MEDS: Magnesium 2 GM/50 ML(in water) 2 GM in Premix 1 BAG IVPB SCH (08:44)
== END 2024-12-11 15:09 | disposition home or self-care (01) | DRG 683 ==
LOC: ERS 19:38 → T4-B 21:59 → OBSVTOIN 12-09 10:58
PROVIDERS: ADMIT Internal Medicine; ATTEND Family Medicine
DX: N17.9 Acute kidney failure, unspecified (principal); E87.20 Acidosis, unspecified; G93.40 Encephalopathy, unspecified; N18.30 Chronic kidney disease, stage 3 unspecified; N40.1 Benign prostatic hyperplasia with lower urinary tract symptoms; E03.9 Hypothyroidism, unspecified; N18.9 Chronic kidney disease, unspecified; E83.42 Hypomagnesemia; E86.9 Volume depletion, unspecified; E11.21 Type 2 diabetes mellitus with diabetic nephropathy; E87.8 Other disorders of electrolyte and fluid balance, not elsewhere classified; D63.8 Anemia in other chronic diseases classified elsewhere; E87.6 Hypokalemia; K75.81 Nonalcoholic steatohepatitis (NASH); K74.60 Unspecified cirrhosis of liver; Z88.8 Allergy status to other drugs, medicaments and biological substances; Z98.890 Other specified postprocedural states; Z72.0 Tobacco use; Z79.890 Hormone replacement therapy
CPT/HCPCS: 36415; 36416; 70450; 80048; 80053; 80069; 80307; 81001; 82140; 83605; 83690; 83735; 85025; 93005; 96361; 96374; 99291; A4217; G0378; J1815; J2405; J3475; J7120

== ENCOUNTER 2024-12-18 10:01 | Emergency (ER) | payer MEDICARE ==
[2024-12-18] MEDS ORDERED: Acetaminophen 500 MG TAB ONE (10:38)
[2024-12-18] MEDS ORDERED: Morphine 4 MG/ML VIAL ONE (10:38)
[2024-12-18] MEDS ORDERED: Ondansetron PF 4 MG/2 ML Vial ONE ×2 (10:49→11:02)
[2024-12-18 11:05] LABS: #Basophils 0.04 10x3/uL (0.0-0.2); %Basophils 0.5 % (0.0-1.0); %Eosinophils 2.1 % (0.0-10.0); %Lymphocytes 24.1 % (21.0-51.0); %Monocytes 8.6 % (0.0-10.0); %Neutrophils 64.1 % (42.0-75.0); Hematocrit 35.5 % (42.0-52.0); Hemoglobin 12.9 g/dL (14.0-18.0); Mean Corpuscular HGB CONC 36.3 g/dL (32.0-36.0); Mean Corpuscular Hemoglobin 33.3 pg (27.0-31.0); Mean Corpuscular Volume 91.7 fL (78.0-98.0); Platelet Count 132 10x3/uL (130-400); RBC Distribution Width 15.8 % (11.5-14.5); Red Blood Cell (RBC) Count 3.87 mill/uL (4.70-6.10)
[2024-12-18 11:14] LABS: Troponin I Less than 0.010 ng/mL (< 0.028)
[2024-12-18 11:17] LABS: ALT (SGPT) 31 U/L (Less than 45); AST (SGOT) 51 U/L (11-34); Albumin 3.2 g/dL (3.1-4.5); Alkaline Phosphatase 225 U/L (40-110); Anion Gap 17 mmol/L (10-20); BUN (Urea Nitrogen) 32 mg/dL (8.4-25.7); Bilirubin, Total 3.5 mg/dL (0.3-1.2); Calc. Creatinine Clearance 0 mL/min (70-130); Calcium 9.7 mg/dL (7.8-10.44); Carbon Dioxide 22 mmol/L (23-31); Chloride 106 mmol/L (98-107); Estimated GFR 34; Globulin 4.1 g/dL (2.4-3.5); Glucose 136 mg/dL (83-110); Magnesium 1.6 mg/dL (1.6-2.6); Potassium 4.2 mmol/L (3.5-5.1); Protein, Total 7.3 g/dL (5.8-8.1); Sodium 141 mmol/L (136-145)
[2024-12-18] MEDS ORDERED: Bupivacaine PF 0.5% 30 ML VIAL ONE (13:58)
[2024-12-18 15:21] LABS: Bacteria/HPF None Seen HPF (None Seen); Bilirubin Negative (Negative); Blood, Urine Negative (Negative); CAUTI Indications for Culture Dysuria,urgency,freq; Clarity Clear (Clear); Glucose, Urine (Dipstick) Normal (Negative); Ketone, Urine Negative (Negative); Leukocyte Negative Leu/uL (Negative); Nitrite Negative (Negative); Protein, Urine (Dipstick) Negative (Neg-Trace); RBC/HPF None Seen HPF (0-3); Specific Gravity, Urine 1.011 (1.002-1.036); Squamous Epithelial 0-3 HPF (0-3); Urobilinogen Normal mg/dL (Less than 2); WBC/HPF None Seen HPF (0-3); pH, Urine 5.5 (5.0-9.0)
[2024-12-18 15:23] LABS: Urine Culture Reflex No No
== END 2024-12-18 15:38 | disposition home or self-care (01) ==
LOC: ERS 10:01
DX: S22.42XA Multiple fractures of ribs, left side, initial encounter for closed fracture (principal); R53.1 Weakness; E86.0 Dehydration; E11.9 Type 2 diabetes mellitus without complications; Z86.19 Personal history of other infectious and parasitic diseases; W19.XXXA Unspecified fall, initial encounter
CPT/HCPCS: 71045; 81001; 83735; 83880; 84484; 87428; 93005; J0665; J2270; J2405; 80053; 84443; 85025; 96361; 96372; 96374; 96375